=== PATIENT | male | born 1930 | race Caucasian/White ===

== ENCOUNTER → 2016-11-02 | Outpatient (CLI) | payer OTHER ==
[~2016-11-02] MED LIST: ALLO100T PO; ASPI81TA7 PO; CALC0.25 PO; CEFT500T PO; FINA5TAB2 PO; FURO20TA2 PO; GLYB5TAB5 PO; LOSA25TA8 PO; LOSA50TA20 PO; METO100T PO; NITR4TASL SL; OMEP40CA2 PO; PRAV80TA2 PO; TERA1CA PO; VIBR100C PO; WARF5VL PO
[2016-11-02 18:08] LABS: INR 2.23
== END ==
LOC: M WUC 13:53
PROVIDERS: ATTEND Family Medicine
DX: Z51.81 Encounter for therapeutic drug level monitoring (principal); Z79.01 Long term (current) use of anticoagulants

== ENCOUNTER 2016-11-14 10:35 | Inpatient (IN) | payer OTHER ==
[~2016-11-14] VITALS: Ht 172.7 cm; Wt 72.7 kg
[2016-11-14 11:35] LABS: BASO % 0.3 % (0.0-1.0); EOS # 0.1 K/mm3 (0.0-0.50); EOS % 1.6 % (0.0-3.0); LARGE UNSTAINED CELL # 0.2 K/mm3 (0.0-0.4); LARGE UNSTAINED CELL % 2.6 % (0.0-4.0); LYMPH % 11.1 % (24.0-44.0); MEAN CORPUSCULAR HEMOGLOBIN 30.4 pg (27.0-33.0); MEAN CORPUSCULAR HGB CONC 32.9 g/dl (32.0-36.5); MEAN CORPUSCULAR VOLUME 92.3 fl (80.0-96.0); MONO # 0.6 K/mm3 (0.0-0.8); NEUTROPHILS # 6.7 K/mm3 (1.8-7.7); NEUTROPHILS % 77.2 % (36.0-66.0); PLATELET COUNT, AUTOMATED 197 k/mm3 (150-450); RED CELL DISTRIBUTION WIDTH 13.7 % (11.5-14.5); WHITE BLOOD COUNT 8.7 K/mm3 (4.0-10.0)
[2016-11-14 12:13] LABS: ALBUMIN 3.1 GM/DL (3.2-5.2); ALBUMIN/GLOBULIN RATIO 0.84 (1.00-1.93); BILIRUBIN,DIRECT 0.1 MG/DL (0.0-0.2); BILIRUBIN,TOTAL 0.7 MG/DL (0.2-1.0); CREATININE FOR GFR 1.9 MG/DL (0.70-1.30); TOTAL PROTEIN 6.8 GM/DL (6.4-8.2)
--- NOTE | 2016-11-14 16:57 | REP ---
Chest, semi upright AP and lateral views: Comparisons are the PA and lateral views performed earlier today and PA and lateral views of 05/01/2013. There is an incomplete respiratory effort with under aeration of the lung bases. Cardiac size is magnified by positioning. No focal infiltrates or effusions are identified. Sternotomy wires, pacemaker and cardiac valve replacement are all again noted. Impression: Incomplete inspiratory effort. Cardiac size is magnified by positioning. Signed by Jagjit Whatley MD 11/14/2016 04:50 P
[2016-11-14] MEDS ORDERED: METO100T PO (19:33)
[2016-11-14] MEDS ORDERED: FINA5TAB2 PO (19:33)
[2016-11-14] MEDS ORDERED: CALC1CAP31 PO (19:33)
[2016-11-14] MEDS ORDERED: AMLO5TAB2 PO (19:33)
[2016-11-14] MEDS ORDERED: ASPI81TA85 PO (19:33)
[2016-11-14] MEDS ORDERED: INSULANT SC (19:33)
[2016-11-14] MEDS ORDERED: NITR4TASL SL (19:33)
[2016-11-14] MEDS ORDERED: COUM1TAB17 PO (19:33)
[2016-11-14] MEDS ORDERED: VITA100066 PO (19:33)
[2016-11-14] MEDS ORDERED: SERO1TAB3 PO (19:33)
[2016-11-14] MEDS ORDERED: CVS20TAB PO (19:33)
[2016-11-14] MEDS ORDERED: DONETAB6 PO (19:33)
[2016-11-14] MEDS ORDERED: PRAV80TA PO (19:33)
[2016-11-14] MEDS ORDERED: ALLO100T PO (19:33)
[2016-11-14] MEDS ORDERED: COUM2.5T11 PO (19:33)
[2016-11-14] MEDS ORDERED: LASI20TA PO (19:33)
[2016-11-14] MEDS ORDERED: ONDANSETRON 4MG/2ML VIAL (J2405) IV PRN (20:30)
[2016-11-14] MEDS ORDERED: DEXTROSE 50% 50 ML SYRINGE IV PRN (20:45)
[2016-11-14] MEDS ORDERED: GLUCAGON FOR INJ 1 MG VIAL (J1610) SC PRN (20:45)
[2016-11-14] MEDS ORDERED: GLUCOSE 4 GM CHEW TABLET PO PRN (20:45)
[2016-11-14] MEDS ORDERED: ASPIRIN 81 MG CHEW TABLET NG SCH (21:00)
[2016-11-14] MEDS ORDERED: DONEPEZIL 5 MG TAB PO SCH (21:00)
[2016-11-14 22:22] LABS: INR 2.28
--- NOTE | 2016-11-14 22:53 | EDDOCDS ---
Physician Documentation [facility] Name: Wilberto Paris Age: 86 yrs Sex: Male : 1930 Arrival Date: 11/14/2016 Time: 10:35 Bed Admit Hold Private MD: Disposition: 11/14 18:14 I have independently interviewed and examined the patient, and I agree with the br1 investigation, diagnosis and treatment plan as documented by the Resident. Disposition: 11/14/16 18:05 Hospitalization ordered by Brando Monzon for Inpatient Admission. Preliminary diagnosis is Altered mental status, unspecified. - Bed requested for 5 Holt. - Status is Inpatient Admission. mcp - Condition is Stable. - Problem is new. - Symptoms are unchanged. Historical: - Allergies: SULFA (SULFONAMIDES); - Home Meds: 1. omeprazole 20 mg Oral cpDR 1 cap once daily (Last dose: 11/14/2016 08:00) 2. amlodipine 5 mg Oral tab 1 tab once daily (Last dose: 11/14/2016 08:00) 3. allopurinol 100 mg Oral tab 1 tab once daily (Last dose: 11/14/2016 08:00) 4. finasteride 5 mg oral tab 1 tab once daily nightly (Last dose: 11/13/2016) 5. calcitriol 0.25 mcg oral cap 2 caps once daily 5x per week (Last dose: 11/13/2016) 6. warfarin 5 mg Oral tab 1 tab once daily nightly (Last dose: 11/13/2016) 7. metoprolol tartrate 100 mg Oral tab 1 tab 2 times per day (Last dose: 11/14/2016 08:00) 8. pravastatin 80 mg oral tab 1 tab once daily nightly (Last dose: 11/13/2016) 9. donepezil 5 mg oral tab 2 tabs once daily nightly (Last dose: 11/13/2016) 10. Lasix 20 mg Oral tab 1 tab once daily nightly (Last dose: 11/13/2016) 11. Vitamin D Oral 1,000 unit daily nightly (Last dose: 11/13/2016) 12. aspirin 81 mg Oral tab 1 tab once daily nightly (Last dose: 11/13/2016) 13. Lantus 100 unit/mL Sub-Q soln 10 units nightly (Last dose: 11/13/2016) 14. Nitrostat 0.4 mg SL subl 1 tab as needed 15. 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 No barriers to communication noted, The patient speaks fluent [place], Speaks appropriately for age. - Family history: Not pertinent. - : The pt / caregiver states he / she is on anticoagulants: coumadin. Home medication list is obtained from family members. - Exposure Risk Screening:: None identified. Vital Signs: 10:42 BP 166 / 69; Pulse 76; Resp 18; Temp 97.3(O); Pulse Ox 95% on R/A; Weight 74.84 kg / nb2 164.99 lbs (R); Height 5 ft. 8 in. (172.72 cm) (R); Pain 0/10; 11:11 BP 147 / 65 (auto/); ml6 11:11 Pulse 68 MON; ml6 13:29 js13 17:56 BP 172 / 88; Pulse 69; Resp 18; Temp 97.3(O); Pulse Ox 90% on R/A; Pain 0/10; nb2 22:28 BP 147 / 65 RA Supine (auto/reg); Pulse 70 MON; Resp 22 S; Temp 99.1(TE); Pulse Ox 93% cln on R/A; 10:42 Body Mass Index 25.09 (74.84 kg, 172.72 cm) nb2 13:29 Patient refusing to keep BP cuff on js13 MDM: 10:59 Seals Engraver/Pulse Ox/q 15 min VS ordered. br1 10:59 IV Saline Lock ordered. br1 10:59 Rhythm Strip to chart ordered. br1 11:00 CBC with Diff Ordered. EDMS 11:00 Cardiac Injury Profile Ordered. EDMS 11:00 Liver Profile Ordered. EDMS 11:00 MED Profile Ordered. EDMS 11:00 Thyroid Stimulating Hormone Ordered. EDMS 11:00 Troponin Ordered. EDMS 11:01 ECG WITH READING ER PHYS+CARDIAG ordered. EDMS 11:57 Financial registration complete. lg 12:32 [facility] Payment Agreement was scanned into [employer] and attached to record. lg 14:00 CBC with Diff Reviewed. jo4 14:00 Liver Profile Reviewed. jo4 14:00 MED Profile Reviewed. jo4 14:00 Troponin Reviewed. jo4 14:00 Cardiac Injury Profile Reviewed. jo4 14:00 Thyroid Stimulating Hormone Reviewed. jo4 14:04 CT Head Without Contrast Ordered. EDMS 14:04 Chest, 2 View (pa\E\lat) Ordered. EDMS 18:06 Chest, 2 View (pa\E\lat) Reviewed. jo4 18:24 BED REQUEST+ADM ordered. EDMS 20:35 Admission / Observation Status ordered. EDMS 20:35 CONSISTENT CARBOHYDRATES ordered. EDMS 20:35 2 GRAM SODIUM DIET ordered. EDMS 20:36 COMPLETE COMPHRENSIVE METABOLI Ordered. EDMS 20:37 URINALYSIS Ordered. EDMS 20:38 CBC WITH DIFFERENTIAL Ordered. EDMS 20:38 TROPONIN Ordered. EDMS 20:38 URINE CULTURE Ordered. EDMS 20:38 BLOOD CULTURES Ordered. EDMS 20:47 PT & APTT Ordered. EDMS 20:47 PROTHROMBIN TIME PROFILE\E\INR Ordered. EDMS 20:48 PHYSICAL THERAPY EVAL & TREAT ordered. EDMS 21:03 TROPONIN Ordered. EDMS 22:26 Admission Orders was scanned into [employer] and attached to record. ml3 22:29 Fingerstick Blood Sugar Ordered. EDAL Point of Care Testing: Blood Glucose: 22:23 Blood Glucose: 313 mg/dL; [facility] Ranges: Signatures: Dispatcher [employer] EDAL Maren Deng RN RN [facility] Rashmi Yi, Bran Reg JenyBillie, Rn Paralegal Unit ml3 Renetta To RN RN jo3 Marshal Hanna MD MD br1 Renetta Valentin RN RN js13 Nilsa Roberts DO DO jo4 Jh Cedeno RN RN sa The chart was reviewed and I authenticate all verbal orders and agree with the evaluation and treatment provided.Corrections: (The following items were deleted from the chart) 20:37 20:36 CBC WITH DIFFERENTIAL ordered. EDAL EDMS Attachments: 12:32 [facility] Payment Agreement lg 22:26 Admission Orders ml3 MTDD
--- NOTE | 2016-11-14 22:53 | EDDOCDS ---
Nurse's Notes [facility] Name: Wilberto Paris Age: 86 yrs Sex: Male : 1930 Arrival Date: 11/14/2016 Time: 10:35 Bed Admit Hold Private MD: Diagnosis: Altered mental status, unspecified Presentation: 11/14 10:38 Presenting complaint: EMS states: Progressive worsening of dementia. Pt having jo3 difficulty ambulating now at home. Family made statements at home that safety is an issue for pt and he may need half-way placement. Adult Sepsis Screening: The patient does not have new or worsening altered mentation. Suicide/Homicide risk assessment- the patient denies having any suicidal and/or homicidal ideations and does not present with any other emotional, behavioral or mental health complaints. Status: Patient is not a service order clerk or dependent. Transition of care: patient was not received from another setting of care. 10:38 Acuity: TINY Level 3 jo3 10:38 Method Of Arrival: Ambulance jo3 22:50 Adult Sepsis Screening: Patient has new or worsening altered mentation (1 point). mcp Patient's respiratory rate is less than 22. Systolic blood pressure is greater than 100. Patient has a qSOFA score of 1- Negative Sepsis Screen. Historical: - Allergies: SULFA (SULFONAMIDES); - Home Meds: 1. omeprazole 20 mg Oral cpDR 1 cap once daily (Last dose: 11/14/2016 08:00) 2. amlodipine 5 mg Oral tab 1 tab once daily (Last dose: 11/14/2016 08:00) 3. allopurinol 100 mg Oral tab 1 tab once daily (Last dose: 11/14/2016 08:00) 4. finasteride 5 mg oral tab 1 tab once daily nightly (Last dose: 11/13/2016) 5. calcitriol 0.25 mcg oral cap 2 caps once daily 5x per week (Last dose: 11/13/2016) 6. warfarin 5 mg Oral tab 1 tab once daily nightly (Last dose: 11/13/2016) 7. metoprolol tartrate 100 mg Oral tab 1 tab 2 times per day (Last dose: 11/14/2016 08:00) 8. pravastatin 80 mg oral tab 1 tab once daily nightly (Last dose: 11/13/2016) 9. donepezil 5 mg oral tab 2 tabs once daily nightly (Last dose: 11/13/2016) 10. Lasix 20 mg Oral tab 1 tab once daily nightly (Last dose: 11/13/2016) 11. Vitamin D Oral 1,000 unit daily nightly (Last dose: 11/13/2016) 12. aspirin 81 mg Oral tab 1 tab once daily nightly (Last dose: 11/13/2016) 13. Lantus 100 unit/mL Sub-Q soln 10 units nightly (Last dose: 11/13/2016) 14. Nitrostat 0.4 mg SL subl 1 tab as needed 15. 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 No barriers to communication noted, The patient speaks fluent Maori, Speaks appropriately for age. - Family history: Not pertinent. - : The pt / caregiver states he / she is on anticoagulants: coumadin. Home medication list is obtained from family members. - Exposure Risk Screening:: None identified. Screenin:34 Screening information is obtained from the patient. Fall risk: At risk due to age, jo3 apparent cognitive impairment. Fall risk: The following interventions are performed due to a positive Fall Risk Screen: Fall Risk is added to Special Handling on the patient Summary Screen. A Fall Risk Bracelet was applied to the patient. Side Rails are placed in the up position. A Call Carl is given with instruction to call for help when getting out of bed. Assistance ADL's: Requires assistance with meal preparation, this assistance is provided by family members, medication administration, assistance is provided by family members. Abuse/DV Screen: The patient / caregiver reports he/she is: not in a situation that causes fear, pain or injury. Unable to Assess. Nutritional screening: No deficits noted. home support is inadequate. 12:09 Advance Directives: There is no active DNR order. js13 Assessment: 11:34 General: Appears in no apparent distress, comfortable, Behavior is appropriate for age, jo3 cooperative. Pain: Denies pain. Neurological: Level of Consciousness is awake, alert, Oriented to person. Cardiovascular: No deficits noted. Respiratory: Airway is patent Respiratory effort is even, unlabored, Breath sounds are clear bilaterally. Derm: Skin is pink, warm & dry. 12:53 General: Appears in no apparent distress, comfortable, Behavior is cooperative. Pain: js13 Denies pain. Neurological: Level of Consciousness is awake, alert, Oriented to person. Respiratory: Airway is patent Respiratory effort is even, unlabored, Respiratory pattern is regular. Derm: Skin is pink, warm & dry. 12:54 Cardiovascular: Rhythm is regular Chest pain is denied. js13 13:29 Adult Sepsis Screening: Patient has new or worsening altered mentation (1 point). js13 Patient's respiratory rate is less than 22. Systolic blood pressure is greater than 100. Patient has a qSOFA score of 1- Negative Sepsis Screen. General: Appears in no apparent distress, comfortable, Behavior is appropriate for age, cooperative. Pain: Denies pain. Neurological: Level of Consciousness is awake, alert. Cardiovascular: Rhythm is regular Chest pain is denied. Respiratory: Airway is patent Respiratory effort is even, unlabored, Respiratory pattern is regular. Derm: Skin is pink, warm & dry. 13:30 General: Dr Cagle aware of patient not keeping BP cuff and O2 sat on and is OK with it. . js13 14:21 General: Appears in no apparent distress, comfortable, Behavior is appropriate for age, pml cooperative. Pain: Denies pain. Neurological: Level of Consciousness is awake, alert. Cardiovascular: Rhythm is regular Chest pain is denied. Respiratory: Airway is patent Respiratory effort is even, unlabored, Respiratory pattern is regular, Breath sounds are clear. Derm: Skin is pink, warm & dry. 15:37 General: Appears in no apparent distress, comfortable, Behavior is appropriate for age, js13 cooperative. Pain: Denies pain. Neurological: Level of Consciousness is awake, alert, Oriented to person. Cardiovascular: Rhythm is regular Chest pain is denied. Respiratory: Airway is patent Respiratory effort is even, unlabored, Respiratory pattern is regular, Breath sounds are clear. Derm: Skin is pink, warm & dry. 15:37 Adult Sepsis Screening: Patient has new or worsening altered mentation (1 point). js13 Patient's respiratory rate is less than 22. Systolic blood pressure is greater than 100. Patient has a qSOFA score of 1- Negative Sepsis Screen. 16:25 Reassessment: Patient appears in no apparent distress at this time. CT scan completed jo3 at this time. Tolerated fair. respirations unlabored, deep and regular on RA. Skin is pink, warm and dry . 17:46 General: Appears in no apparent distress, comfortable, Behavior is cooperative. Pain: js13 Denies pain. Neurological: Level of Consciousness is awake, alert, Oriented to person. Cardiovascular: Rhythm is regular Chest pain is denied. Respiratory: Airway is patent Respiratory effort is even, unlabored, Respiratory pattern is regular, symmetrical, Breath sounds are clear. Derm: Skin is pink, warm & dry. 18:07 General: Appears in no apparent distress, comfortable, Behavior is cooperative. js13 Neurological: Level of Consciousness is awake, alert. Respiratory: Airway is patent Respiratory effort is even, unlabored, Respiratory pattern is regular, symmetrical. Derm: Skin is pink, warm & dry. 19:10 General: Appears in no apparent distress, comfortable, Behavior is cooperative. jo3 Neurological: Level of Consciousness is awake, alert, confused. Cardiovascular: No deficits noted. Respiratory: Airway is patent Respiratory effort is even, unlabored. Derm: Skin is pink, warm & dry. 20:15 Reassessment: Patient appears in no apparent distress at this time. Patient denies pain jo3 at this time. Dr Monzon in to see pt at this time. Family remains at bedside. Pt attends changed at this time and scant amount of blood noted in attends. determined to be coming from within foreskin on penis. dr Monzon notified . 21:15 Reassessment: Patient appears in no apparent distress at this time. Patient denies pain jo3 at this time. Settled in bed with family at bedside. Awaiting admission. Aware of plan of care . 22:24 General: Dr Monzon notified of Troponin 0.25 by Rose Méndez RN and orders received. [facility] Vital Signs: 10:42 BP 166 / 69; Pulse 76; Resp 18; Temp 97.3(O); Pulse Ox 95% on R/A; Weight 74.84 kg (R); nb2 Height 5 ft. 8 in. (172.72 cm) (R); Pain 0/10; 11:11 BP 147 / 65 (auto/); ml6 11:11 Pulse 68 MON; ml6 13:29 js13 17:56 BP 172 / 88; Pulse 69; Resp 18; Temp 97.3(O); Pulse Ox 90% on R/A; Pain 0/10; nb2 22:28 BP 147 / 65 RA Supine (auto/reg); Pulse 70 MON; Resp 22 S; Temp 99.1(TE); Pulse Ox 93% cln on R/A; 10:42 Body Mass Index 25.09 (74.84 kg, 172.72 cm) nb2 13:29 Patient refusing to keep BP cuff on js13 Vitals: 10:38 Log In Time N/A - ambulance arrival. jo3 10:42 Log In Time N/A - ambulance arrival. nb2 ED Course: 10:36 Patient visited by Mindy Martin PCA. ar3 10:36 Renetta Valentin RN is Primary Nurse. ar3 10:36 Patient moved to Waiting ar3 10:36 Patient moved to 13 ar3 10:42 Triage Initiated jo3 10:42 Placed in gown. Bed in low position. Call light in reach. Side rails up X2. Cardiac nb2 monitor on. Pulse ox on. NIBP on. 10:43 Patient visited by Samantha Yanes. nb2 10:44 Patient visited by Renetta To RN. jo3 11:01 Patient visited by Renetta To,ZE. jo3 11:12 [facility] jo4 11:12 Marshal Hanna MD is Attending Physician. jo4 11:22 Patient visited by Nilsa Roberts DO. jo4 11:22 Patient visited by Nilsa Roberts DO. jo4 11:34 The patient / caregiver is instructed regarding the plan of care and ED course. jo3 11:34 Inserted saline lock: 18 gauge in right antecubital area. Labs drawn. (by ED staff). jo3 Sent per order to lab. 11:39 Patient visited by Renetta To RN. jo3 11:50 Patient visited by Kaveh Lopez. dem1 11:50 EKG done. (by ED staff). Reviewed by Nilsa Roberts DO. dem1 12:32 [facility] Payment Agreement was scanned into [employer] and attached to record. lg 12:55 Patient visited by Renetta Valentin RN. js13 13:30 Patient visited by Renetta Valentin RN. js13 14:22 Patient visited by Lynn Flores,ZE. pml 14:33 Patient visited by Marshal Hanna MD. br1 15:38 Patient visited by Renetta Valentin RN. js13 16:43 Patient visited by Adalberto Tripp, ZE. ml6 17:44 Chest, 2 View (pa\E\lat) Returned. EDMS 17:48 Patient visited by Renetta Valentin RN. js13 17:56 Patient visited by Samantha Yanes. nb2 18:04 Brando Monzon MD is Hospitalizing Provider. jo4 18:07 Patient visited by Renetta Valentin RN. js13 19:56 Primary Nurse role handed off by Rneetta Valentin RN alex 20:12 Patient visited by Marychuy Platt PCA. alex 20:12 Cleaned of incontinence. Linen changed. alex 20:43 Patient moved to Admit Hold ml3 20:46 Patient visited by Renetta To RN. jo3 21:16 Patient visited by Renetta To RN. jo3 22:24 Patient visited by Maren Deng RN. mcp 22:26 Admission Orders was scanned into [employer] and attached to record. ml3 22:29 Patient visited by Marylin Christiansen PCA. cln 22:49 No procedures done that require assistance. [facility] Point of Care Testing: Blood Glucose: 22:23 Blood Glucose: 313 mg/dL; [facility] Ranges: Order Results: Lab Order: CBC with Diff; SPEC'M 11/14/16 11:29 Test: WHITE BLOOD COUNT; Value: 8.7; Range: 4.0-10.0; Units: K/mm3; Status: F Test: RED BLOOD COUNT; Value: 3.99; Range: 4.30-6.10; Abnormal: Below low normal; Units: M/mm3; Status: F Test: HEMOGLOBIN; Value: 12.1; Range: 14.0-18.0; Abnormal: Below low normal; Units: g/dl; Status: F Test: HEMATOCRIT; Value: 36.8; Range: 42.0-52.0; Abnormal: Below low normal; Units: %; Status: F Test: MEAN CORPUSCULAR VOLUME; Value: 92.3; Range: 80.0-96.0; Units: fl; Status: F Test: MEAN CORPUSCULAR HEMOGLOBIN; Value: 30.4; Range: 27.0-33.0; Units: pg; Status: F Test: MEAN CORPUSCULAR HGB CONC; Value: 32.9; Range: 32.0-36.5; Units: g/dl; Status: F Test: RED CELL DISTRIBUTION WIDTH; Value: 13.7; Range: 11.5-14.5; Units: %; Status: F Test: PLATELET COUNT, AUTOMATED; Value: 197; Range: 150-450; Units: k/mm3; Status: F Test: NEUTROPHILS %; Value: 77.2; Range: 36.0-66.0; Abnormal: Above high normal; Units: %; Status: F Test: LYMPH %; Value: 11.1; Range: 24.0-44.0; Abnormal: Below low normal; Units: %; Status: F Test: MONO %; Value: 7.0; Range: 0.0-5.0; Abnormal: Above high normal; Units: %; Status: F Test: EOS %; Value: 1.6; Range: 0.0-3.0; Units: %; Status: F Test: BASO %; Value: 0.3; Range: 0.0-1.0; Units: %; Status: F Test: LARGE UNSTAINED CELL %; Value: 2.6; Range: 0.0-4.0; Units: %; Status: F Test: NEUTROPHILS #; Value: 6.7; Range: 1.8-7.7; Units: K/mm3; Status: F Test: LYMPH #; Value: 1.0; Range: 1.5-4.5; Abnormal: Below low normal; Units: K/mm3; Status: F Test: MONO #; Value: 0.6; Range: 0.0-0.8; Units: K/mm3; Status: F Test: EOS #; Value: 0.1; Range: 0.0-0.50; Units: K/mm3; Status: F Test: BASO #; Value: 0.0; Range: 0.0-0.2; Units: K/mm3; Status: F Test: LARGE UNSTAINED CELL #; Value: 0.2; Range: 0.0-0.4; Units: K/mm3; Status: F Lab Order: Cardiac Injury Profile; [facility] 11/14/16 11:29 Test: CPK CREATINE PHOSPHOKINASE; Value: 101; Range: 39-308; Units: U/L; Status: F Test: CK-MB VALUE MASS; Value: 1.0; Range: 0.0-3.6; Units: NG/ML; Status: F Test: MB/CK RELATIVE INDEX; Value: 0.99; Range: < OR =4; Status: F Test Note: ; DIAGNOSIS CRITERIA MMB ng/ml Relative Index (RI) NON-AMI < or = 5 N/A [place] > 5 < or = 4 AMI > 5 > 4 Lab Order: Liver Profile; [facility] 11/14/16 11:29 Test: AST/SGOT; Value: 25; Range: 15-37; Units: U/L; Status: F Test: ALT/SGPT; Value: 18; Range: 12-78; Units: U/L; Status: F Test: ALKALINE PHOSPHATASE; Value: 72; Range: 45-117; Units: U/L; Status: F Test: BILIRUBIN,TOTAL; Value: 0.7; Range: 0.2-1.0; Units: MG/DL; Status: F Test: BILIRUBIN,DIRECT; Value: 0.1; Range: 0.0-0.2; Units: MG/DL; Status: F Test: TOTAL PROTEIN; Value: 6.8; Range: 6.4-8.2; Units: GM/DL; Status: F Test: ALBUMIN; Value: 3.1; Range: 3.2-5.2; Abnormal: Below low normal; Units: GM/DL; Status: F Test: ALBUMIN/GLOBULIN RATIO; Value: 0.84; Range: 1.00-1.93; Abnormal: Below low normal; Status: F Lab Order: MED Profile; [facility] 11/14/16 11:29 Test: GLUCOSE, FASTING; Value: 275; Range: 83-110; Abnormal: Above high normal; Units: MG/DL; Status: F Test: BLOOD UREA NITROGEN; Value: 36; Range: 7-18; Abnormal: Above high normal; Units: MG/DL; Status: F Test: CREATININE FOR GFR; Value: 1.90; Range: 0.70-1.30; Abnormal: Above high normal; Units: MG/DL; Status: F Test: GLOMERULAR FILTRATION RATE; Value: 36.0; Range: >35; Status: F Test: SODIUM LEVEL; Value: 139; Range: 136-145; Units: MEQ/L; Status: F Test: POTASSIUM SERUM; Value: 5.0; Range: 3.5-5.1; Units: MEQ/L; Status: F Test: CHLORIDE LEVEL; Value: 102; Range: 98-107; Units: MEQ/L; Status: F Test: CARBON DIOXIDE LEVEL; Value: 31; Range: 21-32; Units: MEQ/L; Status: F Test: ANION GAP; Value: 6; Range: 8-16; Abnormal: Below low normal; Units: MEQ/L; Status: F Test: CALCIUM LEVEL; Value: 9.0; Range: 8.8-10.2; Units: MG/DL; Status: F Test Note: ; Units are mL/min/1.73 m2 Chronic Kidney Disease Staging per NKF: Stage I & II GFR >=60 Normal to Mildly Decreased Stage III GFR 30-59 Moderately Decreased Stage IV GFR 15-29 Severely Decreased Stage V GFR <15 Very Little GFR Left ESRD GFR <15 on ELECTRONICS ASSEMBLER Lab Order: Thyroid Stimulating Hormone; SPEC'M 11/14/16 11:29 Test: THYROID STIMULATING HORMONE; Value: 1.230; Range: 0.358-3.740; Units: uIU/ML; Status: F Lab Order: Troponin; SPEC'M 11/14/16 11:29 Test: TROPONIN I; Value: 0.35; Range: < 0.10; Abnormal: Above high normal; Units: NG/ML; Status: F Test Note: ; Troponin I Reference Interval for [employer] LOCI: 99th Percentile= 0.00-0.045 ng/ml Risk Stratification: <= 0.10 ng/ml Decreased Risk for Adverse Clinical Events. 0.10-1.50 ng/ml Increased Risk for Adverse Clinical Events. Evaluation of additional criterion and/or repeat testing in 2-6 hours is suggested to rule out myocardial damage. >= 1.50 ng/ml Indicative of Myocardial Injury. Lab Order: PT & APTT; SPEC'M 11/14/16 21:58 Test: PROTHROMBIN TIME; Value: 25.2; Range: 12.3-14.5; Abnormal: Above high normal; Units: SECONDS; Status: F Test: INR; Value: 2.28; Status: F Test: PARTIAL THROMBOPLASTIN TIME; Value: 62.9; Range: 26.6-37.1; Abnormal: Above high normal; Units: SECONDS; Status: F Test Note: ; THERAPUTIC HUMAN INR VALUES INDICATIONS NORMAL RANGES PROPHYLAXIS/TREATMENT OF: VENOUS THROMBOSIS 2.0-3.0 PULMONARY EMBOLISM 2.0-3.0 PREVENTION OF SYSTEMIC EMBOLISM FROM: TISSUE HEART VALVES 2.0-3.0 ACUTE MYOCARDIAL INFARCTION 2.0-3.0 VALVULAR HEART DISEASE 2.0-3.0 ATRIAL FIBRILLATION 2.0-3.0 MECHANICAL VALVES(HIGH RISK) 2.5-3.5 RECURRENT MYOCARDIAL INFARCTION 2.5-3.5 Lab Order: TROPONIN; SPEC'M 11/14/16 21:05 Test: TROPONIN I; Value: 0.25; Range: < 0.10; Abnormal: High; Units: NG/ML; Status: F Test Note: ; Troponin I Reference Interval for [employer] LOCI: 99th Percentile= 0.00-0.045 ng/ml Risk Stratification: <= 0.10 ng/ml Decreased Risk for Adverse Clinical Events. 0.10-1.50 ng/ml Increased Risk for Adverse Clinical Events. Evaluation of additional criterion and/or repeat testing in 2-6 hours is suggested to rule out myocardial damage. >= 1.50 ng/ml Indicative of Myocardial Injury. Lab Order: Fingerstick Blood Sugar; SPEC'M 11/14/16 22:20 Test: BEDSIDE GLUCOSE; Value: 313; Range: 83-110; Abnormal: Above high normal; Units: MG/DL; Status: F Radiology Order: Chest, 2 View (pa\E\lat) Test: Chest, 2 View (pa\E\lat) REASON FOR EXAMINATION: Elevated troponin; Chest, semi upright AP and lateral views:; ; Comparisons are the PA and lateral views performed earlier today and PA and; lateral views of 05/01/2013.; ; There is an incomplete respiratory effort with under aeration of the lung bases.; ; Cardiac size is magnified by positioning.; ; No focal infiltrates or effusions are identified.; ; Sternotomy wires, pacemaker and cardiac valve replacement are all again noted.; ; Impression:; ; Incomplete inspiratory effort. Cardiac size is magnified by positioning.; ; ; Signed by; Jagjit Whatley MD 11/14/2016 04:50 P; Outcome: 18:05 Decision to Hospitalize by Provider. jo4 22:48 Discharge Assessment: patient administered narcotics - no. The following High Risk [facility] Discharge criteria are identified: None. Admitted to Med/Surg accompanied by tech, via stretcher, with chart. Condition: stable. Property given to family member, . 22:49 CT Study completed. [facility] 22:52 Patient left the ED. [facility] Signatures: Dispatcher [employer] EDMS Maren Deng, RN RN [facility] Rashmi Yi, Reg Reg lg Jeny, Billie, Property Insurance Inspector Unit ml3 Renetta ToRN RN jo3 Marshal Hanna MD MD brAdalberto Barriga RN RN ml6 Mindy Martin, EMOTIONAL SUPPORT TEACHER EMOTIONAL SUPPORT TEACHER ar3 Marychuy Platt, EMOTIONAL SUPPORT TEACHER EMOTIONAL SUPPORT TEACHER alex Lynn Flores,RN RN Kaveh Lorenzo Jennifer,ZE RN js13 Nilsa Roberts, DO jo4 Marylin Christiansen, EMOTIONAL SUPPORT TEACHER EMOTIONAL SUPPORT TEACHER cln Samantha Yanes nb2 Corrections: (The following items were deleted from the chart) 16:44 16:20 Reassessment: Patient appears in no apparent distress at this time. CT scan jo3 completed at this time. Tolerated fair. respirations unlabored, deep and regular on RA. Skin is pink, warm and dry . ml6 MTDD
[2016-11-14 23:43] VITALS: BP 154/82
[2016-11-14] MEDS: PRAVASTATIN 20 MG TAB PO SCH (23:54)
[2016-11-14] MEDS: FINASTERIDE 5 MG TAB PO SCH (23:54)
[2016-11-14] MEDS: METOPROLOL TARTRATE 100 MG TAB PO SCH (23:54)
[2016-11-14] MEDS: ACETAMINOPHEN TAB 650MG DOSE (2X325MG) PO PRN (23:55)
[2016-11-15] MEDS: HumaLOG INSULIN (NovoLOG) PER UNIT SC SCH ×5 (00:01→20:21)
[2016-11-15 06:00] VITALS: BP 146/79
[2016-11-15 06:50] LABS: BASO % 0.4 % (0.0-1.0); EOS # 0.3 K/mm3 (0.0-0.50); EOS % 4.9 % (0.0-3.0); LARGE UNSTAINED CELL # 0.3 K/mm3 (0.0-0.4); LARGE UNSTAINED CELL % 3.9 % (0.0-4.0); LYMPH # 1.1 K/mm3 (1.5-4.5); LYMPH % 15.2 % (24.0-44.0); MEAN CORPUSCULAR HEMOGLOBIN 30.9 pg (27.0-33.0); MEAN CORPUSCULAR HGB CONC 33.7 g/dl (32.0-36.5); MEAN CORPUSCULAR VOLUME 91.8 fl (80.0-96.0); MONO # 0.5 K/mm3 (0.0-0.8); MONO % 6.7 % (0.0-5.0); NEUTROPHILS # 4.7 K/mm3 (1.8-7.7); NEUTROPHILS % 68.8 % (36.0-66.0); PLATELET COUNT, AUTOMATED 195 k/mm3 (150-450); RED CELL DISTRIBUTION WIDTH 13.8 % (11.5-14.5); WHITE BLOOD COUNT 6.9 K/mm3 (4.0-10.0)
[2016-11-15 06:59] LABS: ALBUMIN 2.8 GM/DL (3.2-5.2); ALBUMIN/GLOBULIN RATIO 0.72 (1.00-1.93); BILIRUBIN,TOTAL 0.8 MG/DL (0.2-1.0); CALCIUM LEVEL 8.7 MG/DL (8.8-10.2); CREATININE FOR GFR 1.68 MG/DL (0.70-1.30); GLOMERULAR FILTRATION RATE 41.5 (>35); INR 2.28; TOTAL PROTEIN 6.7 GM/DL (6.4-8.2)
[2016-11-15] MEDS: METOPROLOL TARTRATE 100 MG TAB PO SCH ×2 (08:36→20:21)
[2016-11-15] MEDS: FUROSEMIDE 20 MG TAB PO SCH (08:36)
[2016-11-15] MEDS: ACETAMINOPHEN TAB 650MG DOSE (2X325MG) PO PRN ×2 (08:36→20:22)
[2016-11-15] MEDS: amLODIPine 5 MG TAB PO SCH (08:36)
[2016-11-15] MEDS: ALLOPURINOL 100 MG TAB PO SCH (08:36)
--- NOTE | 2016-11-15 08:58 | REP ---
Noncontrast brain CT. History: Worsening dementia. Comparison head CT study September 11, 2011. Findings: Digital lateral wood shingle roofer radiograph is unremarkable. Bone window settings demonstrate an intact bony calvarium. Visualized paranasal sinuses are clear. There is heavy vascular calcification in the carotid siphons bilaterally. There is moderate diffuse cerebral atrophy. Small vessel atherosclerotic low density changes are seen in the periventricular white matter bilaterally, unchanged from the prior CT study of August 2011. There is no evidence of infarct, intracranial hemorrhage, extra-axial fluid collection, mass or midline shift. Impression: Prominent vascular calcification, diffuse atrophy, small vessel changes. No acute intracranial abnormality. Signed by Beau Suh MD 11/15/2016 09:06 A
[2016-11-15] MEDS ORDERED: OMEPRAZOLE 20 MG CAP PO SCH (09:00)
[2016-11-15] MEDS ORDERED: ENOXAPARIN 40 MG/0.4 ML SYRINGE (J1650) SC SCH (09:00)
--- NOTE | 2016-11-15 13:02 | ECGEPIP ---
Stationary ECG Study [facility] - ED Test Date: 2016-11-14 Pat Name: MADHU CLAROS Department: Room: - Gender: M Manager Ent: armida : [id number] Requested By: NAVIN Brown Order Number: [id number] Reading MD: Lo Mcdaniels Measurements Intervals [place] Rate: 69 P: [place]: 0 QRS: 265 QRSD: 177 T: -24 QT: 495 QTc: 534 Interpretive Statements ELECTRONIC VENTRICULAR PACEMAKER ABNORMAL RHYTHM ECG SIMILAR 09/14/14 Electronically Signed On 11-15-2016 13:02:04 EST by Lo Mcdaniels
--- NOTE | 2016-11-15 13:10 | HPE ---
DISCLAIMER: Dr. Monzon: Please fill in and/or correct or redictate the following note. There are many blanks due to poor audio, and the note was cut off at the end before the Laboratories and Assessment and Plan. Thank you! Porsche Thurman, Clinical Asst DATE OF ADMISSION: 11/14/2016 CHIEF COMPLAINT: Increased generalized weakness, confusion, progressively over the last few weeks. HISTORY OF PRESENT ILLNESS: This is an 86-year-old white male patient of Dr. Andrey Caldwell, who presents to [facility] ([facility]) with a 2-week history of progressive symptoms of generalized weakness. The patient has been generally more confused; and over the last 2 days, he has had episodes of urinary incontinence, which he has not had before. His appetite has been decreased. No vomiting, diarrhea. No fevers, chills. No obvious chest pain, palpitations, orthopnea, paroxysmal nocturnal dyspnea (PND), nor increased edema. PAST MEDICAL HISTORY: illnesses. Coronary artery disease (CAD), status post coronary artery bypass graft (CABG) times four. (dictation cut off) Diabetes mellitus type 2, uncontrolled. (dictation cut off) Frequent falls. Chronic kidney disease stage III. Diastolic dysfunction. Benign prostatic hypertrophy (BPH) (bad audio). AV block. 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 Gout. Hypertension. Hypertensive heart disease. MEDICATIONS: Per [employer] (ECW) confirmed with , Regla, at bedside. - aspirin 81 by mouth every day (bad audio) (bad audio) - Calcitriol 0.5 five days a week (bad audio) - Coumadin (bad audio) (bad audio) REVIEW OF SYSTEMS: CONSTITUTIONAL: Denies weight loss (bad audio) VISION: No diplopia or scotoma. EARS, NOSE, AND THROAT (ENT): No epistaxis or hoarseness. CARDIOVASCULAR: No chest pain or palpitations. PULMONARY: No shortness of breath. No wheeze. GASTROINTESTINAL (GI): No odynophagia or hematochezia. GENITOURINARY (): He has had no dysuria or hematuria. ENDOCRINE: No polyuria or polydipsia. RHEUMATOLOGIC: No joint or tendon pain. NEUROLOGIC: No paresthesias or weakness. PHYSICAL EXAMINATION: 98 , respiratory rate 18, , blood pressure (bad audio). GENERAL: The patient is alert and oriented times three, in no acute distress. HEAD: Is normocephalic, atraumatic. EARS: Tympanic membranes (TMs) normal bilateral. EYES: With clear conjunctivae. NOSE: Without discharge. THROAT: Clear oropharynx. HEART: Is regular rate and rhythm with a systolic murmur 2/6 at upper sternal border. No jugular venous distention (JVD). RESPIRATORY: Decreased breath sounds bilateral bases. No rales, rhonchi, or wheezes. ABDOMEN: There is mild suprapubic tenderness. No pulsatile masses. No distention. Positive bowel sounds. No hepatosplenomegaly. No palpable masses. DICTATION ENDS HERE
--- NOTE | 2016-11-15 13:39 | IPNPDOC ---
Assessment/Plan Date Seen The patient was seen on 11/15/16. Problems Problems: (1) Mental status change Status: Acute Problem Specific Plan: Monitor Clinically Problem Text: acute delirium on chronic moderate LB dementia 11/14/16 BCX/UCX - 11/14/16 CT head NAD progressive dementia. PFS consult to eval home situation, DC needs. (2) Elevated troponin Status: Acute Problem Text: mildly elevated T-I-stable, favor moreso 2 CKD check TTE no angina/dyspnea/PND (3) Acute on chronic renal insufficiency Status: Acute Problem Specific Plan: Monitor Clinically Problem Text: Cr. 1.6 improving. (4) Diabetes Status: Chronic Response to Treatment: Improving Problem Text: well controlled on ADA diet, SSNI 08/2016 A1C 11 (5) CAD (coronary artery disease) Status: Chronic Problem Specific Plan: Monitor Clinically Plan / VTE VTE Prophylaxis Ordered?: Yes (lovenox) VTE Exclusion Mechanical Proph: Chinedu Lower Ex Surgery Subjective Review of Systems CC/HPI The patient is a 86-year-old male admitted with a reason for visit of Elevated Tropinin/Mental Status Change. Events since last encounter noted ТАТЬЯНА. Troponin elevated at 0.31. Asymptomatic. Progressive weakness. General: Reports: ROS Unobtainable Objective Physical Examination General Exam: Positive: Alert, Cooperative, No Acute Distress ENT Exam: Positive: Atraumatic, Mucous membr. moist/pink, Pharynx Normal Neck Exam: Positive: Supple, Negative: JVD, thyromegaly Chest Exam: Positive: Clear to auscultation, Normal air movement Heart Exam: Positive: Normal S1, Normal S2, Rate Normal, Regular Rhythm, Negative: Murmurs, Rubs Abdomen Exam: Positive: Normal bowel sounds, Soft, Negative: Hepatospenomegaly, Tenderness Extremity Exam: Positive: Normal pulses, Negative: Clubbing, Cyanosis, Edema Skin Exam: Positive: Nl turgor and temperature, Negative: Breakdown, Rash Psych Exam: Positive: Other (alert to self, repeats statements. ) Vital Signs/I&O Vital Signs Date Time Temp Pulse Resp B/P Pulse Ox O2 Delivery O2 Flow Rate FiO2 11/15/16 08:36 90 146/79 11/15/16 06:00 98.2 20 95 Room Air I&O- Last 24 Hours up to 6 AM 11/15/16 06:00 Intake Total 120 ml Output Total 400 ml Balance -280 ml Laboratory Data Labs 24H Laboratory Tests 2 11/14/16 21:05: Troponin I 0.25#H 11/14/16 21:58: Activated Partial Thromboplast Time 62.9H, Prothromb Time International Ratio 2.28, Prothrombin Time 25.2H 11/14/16 22:20: Bedside Glucose (Misc Panel) 313H 11/14/16 23:55: Bedside Glucose (Misc Panel) 261H 11/15/16 06:10: Blood Urea Nitrogen 30H, Creatinine 1.68H, Sodium Level 141, Potassium Level 4.0 , Chloride Level 104, Carbon Dioxide Level 30, Calcium Level 8.7L, Aspartate Amino Transf (AST/SGOT) 15, Alanine Aminotransferase (ALT/SGPT) 14, Alkaline Phosphatase 67, Total Bilirubin 0.8, Total Protein 6.7, Albumin 2.8L, Albumin/ Globulin Ratio 0.72L, Anion Gap 7L, White Blood Count 6.9, Red Blood Count 3.80L , Hemoglobin 11.7L, Hematocrit 34.9L, Mean Corpuscular Volume 91.8, Mean Corpuscular Hemoglobin 30.9, Mean Corpuscular Hemoglobin Concent 33.7, Red Cell Distribution Width 13.8, Platelet Count 195, Neutrophils (%) (Auto) 68.8H, Lymphocytes (%) (Auto) 15.2L, Monocytes (%) (Auto) 6.7H, Eosinophils (%) (Auto) 4.9H, Basophils (%) (Auto) 0.4, Neutrophils # (Auto) 4.7, Lymphocytes # (Auto) 1.1L, Monocytes # (Auto) 0.5, Eosinophils # (Auto) 0.3, Basophils # (Auto) 0.0, Glomerular Filtration Rate 41.5, Large Unclassified Cells # 0.3, Large Unclassified Cells % 3.9, Prothromb Time International Ratio 2.28, Prothrombin Time 25.2H, Troponin I 0.31#H 11/15/16 10:30: Urine Amorphous Sediment , Urine Appearance CLEAR, Urine Color YELLOW, Urine pH 5.0, Urine Specific [place] 1.021, Urine Protein 2+H, Urine Glucose (UA) 2+H, Urine Ketones NEGATIVE, Urine Urobilinogen 0.2, Urine Bilirubin NEGATIVE, Urine Leukocyte Esterase NEGATIVE, Urine Bacteria (Auto) NEGATIVE, Urine Blood 3+H, Urine Calcium Carbonate Cryst(Auto) , Urine Calcium Oxalate Cryst (Auto) , Urine Calcium Phosphate [place] (Auto) , Urine Cellular Casts , Urine Cystine Crystals , Urine Granular Casts (Auto) , Urine Hyaline Casts (Auto) 0, Urine Leucine Crystals , Urine Mucus (Auto) , Urine Nitrite NEGATIVE, Urine Oval Fat Bodies (Auto) , Urine RBC (Auto) 36H, Urine Renal Epithelial Cells , Urine Sperm (Auto) , Urine Squamous Epithelial Cells 0, Urine Transitional Epithelial Cells , Urine Trichomonas (Auto) , Urine Triple Phosphate Cryst (Auto) , Urine Tyrosine Crystals , Urine Uric Acid Crystals (Auto) , Urine WBC (Auto) 19H, Urine Waxy Casts (Auto) , Urine Yeast-Like Cells (Auto) 11/15/16 11:40: Bedside Glucose (Misc Panel) 141H CBC/BMP Laboratory Tests 11/15/16 06:10 Calcium Level 8.7 L, Aspartate Amino Transf (AST/SGOT) 15, Alanine Aminotransferase (ALT/SGPT) 14, Alkaline Phosphatase 67, Total Bilirubin 0.8, Total Protein 6.7, Albumin 2.8 L, Red Blood Count 3.80 L, Mean Corpuscular Volume 91.8, Mean Corpuscular Hemoglobin 30.9, Mean Corpuscular Hemoglobin Concent 33.7, Red Cell Distribution Width 13.8, Neutrophils (%) (Auto) 68.8 H, Lymphocytes (%) (Auto) 15.2 L, Monocytes (%) (Auto) 6.7 H, Eosinophils (%) (Auto ) 4.9 H, Basophils (%) (Auto) 0.4, Neutrophils # (Auto) 4.7, Lymphocytes # (Auto ) 1.1 L, Monocytes # (Auto) 0.5, Eosinophils # (Auto) 0.3, Basophils # (Auto) 0.0 FSBS Laboratory Tests Test 11/14/16 22:20 11/14/16 23:55 11/15/16 11:40 Range/Units Bedside Glucose (Misc Panel) 313 261 141 83-110 MG/DL Microbiology Microbiology 11/14/16 Blood Culture, Received Pending 11/15/16 Urine Culture, Received Pending Bertha Shaw Nov 15, 2016 13:39 Brando Monzon M.D. Nov 15, 2016 14:53
[2016-11-15 14:00] VITALS: BP 153/72
[2016-11-15] MEDS ORDERED: GI COCKTAIL 50ML BTL(HYOSCYAMINE/MAALOX/LIDOCAINE VISCOUS)(1:3:1) PO ONE (17:00)
--- NOTE | 2016-11-15 17:55 | REP ---
Supine abdomen single AP view: There is a scattered gas in nondistended small bowel loops. There is no small bowel distension or large bowel distension. However, there is evident. These are mildly thickened. This is nonspecific and could represent bowel wall edema or possibly ascites. There are vascular atheromatous calcifications in the pelvis. There is bilateral hip osteoarthritis. There is degenerative disc disease throughout the lumbar spine. Impression: Nonspecific bowel gas pattern. Signed by Jagjit Whatley MD 11/15/2016 05:46 P
[2016-11-15] MEDS: ASPIRIN 81 MG CHEW TABLET PO SCH (20:20)
[2016-11-15] MEDS: FINASTERIDE 5 MG TAB PO SCH (20:20)
[2016-11-15] MEDS: OMEPRAZOLE 20 MG CAP PO SCH (20:20)
[2016-11-15] MEDS: DONEPEZIL 5 MG TAB PO SCH (20:20)
[2016-11-15] MEDS: PRAVASTATIN 20 MG TAB PO SCH (20:20)
[2016-11-15 22:00] VITALS: BP 148/67
[2016-11-16 06:00] VITALS: BP 150/65
--- NOTE | 2016-11-16 06:05 | HPE ---
DATE OF ADMISSION: 11/14/2016 CHIEF COMPLAINT: Increased generalized weakness, confusion progressively over the last 2 weeks. HISTORY OF PRESENT ILLNESS: This is an 86-year-old white male patient of Dr. Andrey Caldwell who presents to [facility] ([facility]) emergency room (ER) with a 2 week history of progressive increased generalized weakness. Per the patient's , he has been more confused and over the last 2 days he has episodes of urinary incontinence, which he has never had before. His overall appetite has been decreased without vomiting or diarrhea. He has had no fevers, chills. He has had no obvious chest pain, palpitations, orthopnea. No paroxysmal nocturnal dyspnea (PND). No increased edema. PAST MEDICAL HISTORY: Hospitalizations: None recently. Illnesses: CAD, status post CABG, diabetes mellitus type 2, insulin dependent, uncontrolled, chronic kidney disease stage III, hypertension, hypertensive heart disease, congestive heart failure (CHF) secondary to diastolic dysfunction, BPH, history of atrioventricular (AV) block status post pacemaker, history of mitral valve repair, dementia, Lewy body type, moderate, gout. MEDICATIONS: Per ECW, confirmed with Regla at bedside: - aspirin 81 by mouth daily - calcitriol 0.5, 5 days a week - allopurinol 100 by mouth daily - amlodipine 5 by mouth daily - vitamin D 1000 daily - donepezil 10 nightly - finasteride 5 by mouth daily - furosemide 20 by mouth daily - metoprolol tartrate 100 twice a day - nitro 0.4 sublingual as needed - omeprazole 20 daily - pravastatin 80 nightly - Seroquel 25 nightly - warfarin 5 Wednesday through Wednesday, 2.5 on Wednesday and Wednesday REVIEW OF SYSTEMS: Constitutional: No weight loss, night sweats, or vision. Eyes: No diplopia or scatoma. ENT: No epistaxis. Cardiovascular: No chest pain or palpitations. Pulmonary: No shortness of breath or wheeze. Gastrointestinal: No abdominal pain, melena or hematochezia. Genitourinary: No dysuria or hematuria. Rheumatologic: No generalized tenderness or pain. Neurologic: No paresthesia or weakness. PHYSICAL EXAMINATION: 98.5, 88, 18, 154/94, 96% on room air. General: The patient is alert and oriented times zero, in no acute distress. Head is normocephalic, atraumatic. Ears: Tympanic membranes (TMs) normal bilateral. Eyes: Clear conjunctiva. Nose without discharge. Throat clear. Pharynx benign. Neck: Without adenopathy. Heart is regular rate and rhythm with systolic ejection murmur 2/6, loudest at left second intercostal space. No jugular venous distention (JVD). Respiratory: Decreased breath sounds bilateral. No rales, rhonchi or wheeze. Abdomen: There is mild suprapubic tenderness. No masses. Positive bowel sounds. No hepatosplenomegaly. Extremities: No clubbing, cyanosis or edema. Neurologic is grossly nonfocal. INVESTIGATIONS: Showed WBC 8.7, hemoglobin and hematocrit 12.1 and 36.8, platelets of 197. INR of 2.3, PTT of 63. Sodium 139, potassium 5.0, bicarbonate 31, BUN 36, creatinine 1.9. AST, ALT of 25 and 18. Troponin I 0.35. 101 with an index of 1.0. TSH of 1.2. Chest x-ray showed no acute disease. Head CT showed generalized atrophy. No acute infarct or mass. EKG from 11/14/2006 at 11:50 showed ventricular paced rhythm at 69 beats per minute. ASSESSMENT: This is an 86-year-old white male with increased generalized weakness over the last 2 weeks with borderline troponin and suprapubic tenderness. PLAN: 1. Cardiovascular: Admit the patient to [facility] ([facility]) for serial enzymes and EKGs. Continue his home warfarin and baby aspirin, and antihypertensive therapy including beta-sonido. There are no signs of cardiac decompensation and he appears to have normal ventricular pace or function. 2. Neurologic: We will continue his home dose of donepezil at night in favor of acute delirium secondary to toxic metabolic encephalopathy, possibly secondary to urinary tract infection (UTI) or myocardial infarction (VA). We will also check blood and urine culture. 3. Renal: Patient is at baseline creatinine of roughly 1.9 with stable electrolytes. 4. Urologic: We will check a PVR, urine culture to rule out UTI. DISPOSITION: We will continue the patient as a FULL CODE STATUS per 's request. We will consult physical therapy (PT), occupational therapy (OT) to evaluate and treat any probable need short-term rehabilitation.
[2016-11-16 06:24] LABS: BASO % 0.6 % (0.0-1.0); EOS # 0.3 K/mm3 (0.0-0.50); LARGE UNSTAINED CELL # 0.3 K/mm3 (0.0-0.4); LARGE UNSTAINED CELL % 3.5 % (0.0-4.0); LYMPH # 1.1 K/mm3 (1.5-4.5); LYMPH % 15.5 % (24.0-44.0); MEAN CORPUSCULAR HEMOGLOBIN 30.6 pg (27.0-33.0); MEAN CORPUSCULAR HGB CONC 33.2 g/dl (32.0-36.5); MEAN CORPUSCULAR VOLUME 92.1 fl (80.0-96.0); MONO # 0.4 K/mm3 (0.0-0.8); MONO % 5.7 % (0.0-5.0); NEUTROPHILS % 70.7 % (36.0-66.0); PLATELET COUNT, AUTOMATED 222 k/mm3 (150-450); WHITE BLOOD COUNT 7.1 K/mm3 (4.0-10.0)
[2016-11-16 06:29] LABS: INR 1.9
[2016-11-16 06:58] LABS: ALBUMIN 2.8 GM/DL (3.2-5.2); ALBUMIN/GLOBULIN RATIO 0.7 (1.00-1.93); BILIRUBIN,TOTAL 0.7 MG/DL (0.2-1.0); CALCIUM LEVEL 8.7 MG/DL (8.8-10.2); CREATININE FOR GFR 1.72 MG/DL (0.70-1.30); GLOMERULAR FILTRATION RATE 40.4 (>35); POTASSIUM SERUM 4.2 MEQ/L (3.5-5.1); TOTAL PROTEIN 6.8 GM/DL (6.4-8.2)
--- NOTE | 2016-11-16 08:34 | IPNPDOC ---
Assessment/Plan Date Seen The patient was seen on 11/16/16. Family Medicine Attending Note: Patient seen and examined; I d/w JAJA Kennedy and I agree with her note below. Patient's and daughter are at bedside - they are still uncertain regarding long-term NH placement but patient's states she cannot move him at home. PT was unable to evaluate the patient because he could not understand their directions. Plan is to SNF tomorrow and arrange NH placement. (KES) Problems Problems: (1) Mental status change Status: Acute Problem Specific Plan: Monitor Clinically Problem Text: acute delirium on chronic moderate LB dementia 11/14/16 BCX/UCX - 11/14/16 CT head NAD progressive dementia. PFS consult to eval home situation, DC needs 11/16 - will plan to SNF pt 11/17. (2) Elevated troponin Status: Acute Problem Text: mildly elevated T-I-stable, favor moreso 2 CKD check TTE no angina/dyspnea/PND (3) Acute on chronic renal insufficiency Status: Acute Problem Specific Plan: Monitor Clinically Problem Text: Cr. 1.72 - stable (4) Diabetes Status: Chronic Response to Treatment: Improving Problem Text: well controlled on ADA diet, SSNI 08/2016 A1C 11 (5) CAD (coronary artery disease) Status: Chronic Problem Specific Plan: Monitor Clinically Plan / VTE VTE Prophylaxis Ordered?: Yes (lovenox) VTE Exclusion Mechanical Proph: Chinedu Lower Ex Surgery Subjective Review of Systems CC/HPI Pt without new concerns. He appears quite confused. ROS limited based on his confusion. Pulmonary: Denies: Cough, Dyspnea Cardiovascular: Denies: Chest Pain Gastrointestinal: Denies: Nausea, Vomiting Objective Physical Examination General Exam: Positive: Alert, No Acute Distress ENT Exam: Positive: Mucous membr. moist/pink Neck Exam: Positive: Supple, Negative: JVD, thyromegaly Chest Exam: Positive: Clear to auscultation, Normal air movement Heart Exam: Positive: Normal S1, Normal S2, Rate Normal, Regular Rhythm, Negative: Murmurs, Rubs Abdomen Exam: Positive: Normal bowel sounds, Soft, Negative: Hepatospenomegaly, Tenderness Extremity Exam: Positive: Normal pulses, Negative: Clubbing, Cyanosis, Edema Skin Exam: Positive: Nl turgor and temperature, Negative: Breakdown, Rash Psych Exam: Positive: Other (alert to self, repeats statements. ) Vital Signs/I&O Vital Signs Date Time Temp Pulse Resp B/P Pulse Ox O2 Delivery O2 Flow Rate FiO2 11/16/16 06:00 98.2 76 20 150/65 96 Room Air I&O- Last 24 Hours up to 6 AM 11/16/16 06:00 Intake Total 810 ml Output Total 450 ml Balance 360 ml Laboratory Data Labs 24H Laboratory Tests 2 11/15/16 10:30: Urine Amorphous Sediment , Urine Appearance CLEAR, Urine Color YELLOW, Urine pH 5.0, Urine Specific [place] 1.021, Urine Protein 2+H, Urine Glucose (UA) 2+H, Urine Ketones NEGATIVE, Urine Urobilinogen 0.2, Urine Bilirubin NEGATIVE, Urine Leukocyte Esterase NEGATIVE, Urine Bacteria (Auto) NEGATIVE, Urine Blood 3+H, Urine Calcium Carbonate Cryst(Auto) , Urine Calcium Oxalate Cryst (Auto) , Urine Calcium Phosphate [place] (Auto) , Urine Cellular Casts , Urine Cystine Crystals , Urine Granular Casts (Auto) , Urine Hyaline Casts (Auto) 0, Urine Leucine Crystals , Urine Mucus (Auto) , Urine Nitrite NEGATIVE, Urine Oval Fat Bodies (Auto) , Urine RBC (Auto) 36H, Urine Renal Epithelial Cells , Urine Sperm (Auto) , Urine Squamous Epithelial Cells 0, Urine Transitional Epithelial Cells , Urine Trichomonas (Auto) , Urine Triple Phosphate Cryst (Auto) , Urine Tyrosine Crystals , Urine Uric Acid Crystals (Auto) , Urine WBC (Auto) 19H, Urine Waxy Casts (Auto) , Urine Yeast-Like Cells (Auto) 11/15/16 11:40: Bedside Glucose (Misc Panel) 141H 11/15/16 17:04: Bedside Glucose (Misc Panel) 152H 11/15/16 20:14: Bedside Glucose (Misc Panel) 184H 11/16/16 06:03: White Blood Count 7.1, Red Blood Count 3.93L, Hemoglobin 12.0L, Hematocrit 36.2L , Mean Corpuscular Volume 92.1, Mean Corpuscular Hemoglobin 30.6, Mean Corpuscular Hemoglobin Concent 33.2, Red Cell Distribution Width 14.0, Platelet Count 222, Neutrophils (%) (Auto) 70.7H, Lymphocytes (%) (Auto) 15.5L, Monocytes (%) (Auto) 5.7H, Eosinophils (%) (Auto) 4.0H, Basophils (%) (Auto) 0.6 , Neutrophils # (Auto) 5.0, Lymphocytes # (Auto) 1.1L, Monocytes # (Auto) 0.4, Eosinophils # (Auto) 0.3, Basophils # (Auto) 0.0, Large Unclassified Cells # 0.3 , Large Unclassified Cells % 3.5 11/16/16 06:04: Blood Urea Nitrogen 32H, Creatinine 1.72H, Sodium Level 140, Potassium Level 4.2 , Chloride Level 102, Carbon Dioxide Level 29, Calcium Level 8.7L, Aspartate Amino Transf (AST/SGOT) 18, Alanine Aminotransferase (ALT/SGPT) 16, Alkaline Phosphatase 65, Total Bilirubin 0.7, Total Protein 6.8, Albumin 2.8L, Albumin/ Globulin Ratio 0.70L, Amylase Level 62, Anion Gap 9, Glomerular Filtration Rate 40.4, Prothromb Time International Ratio 1.90, Prothrombin Time 21.9H CBC/BMP Laboratory Tests 11/16/16 06:03 Red Blood Count 3.93 L, Mean Corpuscular Volume 92.1, Mean Corpuscular Hemoglobin 30.6, Mean Corpuscular Hemoglobin Concent 33.2, Red Cell Distribution Width 14.0, Neutrophils (%) (Auto) 70.7 H, Lymphocytes (%) (Auto) 15.5 L, Monocytes (%) (Auto) 5.7 H, Eosinophils (%) (Auto) 4.0 H, Basophils (%) (Auto) 0.6, Neutrophils # (Auto) 5.0, Lymphocytes # (Auto) 1.1 L, Monocytes # ( Auto) 0.4, Eosinophils # (Auto) 0.3, Basophils # (Auto) 0.0 11/16/16 06:04 Calcium Level 8.7 L, Aspartate Amino Transf (AST/SGOT) 18, Alanine Aminotransferase (ALT/SGPT) 16, Alkaline Phosphatase 65, Total Bilirubin 0.7, Total Protein 6.8, Albumin 2.8 L FSBS Laboratory Tests Test 11/15/16 11:40 11/15/16 17:04 11/15/16 20:14 Range/Units Bedside Glucose (Misc Panel) 141 152 184 83-110 MG/DL Microbiology Microbiology 11/14/16 Blood Culture - Preliminary, Resulted No growth after 24 hours . All specim... 11/15/16 Urine Culture - Final, Complete LEÓN BAUTISTA PA-C Nov 16, 2016 08:34 MIRACLE LAZARO MD Nov 16, 2016 13:52
[2016-11-16] MEDS: FUROSEMIDE 20 MG TAB PO SCH (09:10)
[2016-11-16] MEDS: OMEPRAZOLE 20 MG CAP PO SCH ×2 (09:10→21:00)
[2016-11-16] MEDS: ALLOPURINOL 100 MG TAB PO SCH (09:10)
[2016-11-16] MEDS: amLODIPine 5 MG TAB PO SCH (09:10)
[2016-11-16] MEDS: METOPROLOL TARTRATE 100 MG TAB PO SCH ×2 (09:11→21:00)
[2016-11-16] MEDS: CALCITRIOL 0.25 MCG CAP (S0169) PO SCH (09:11)
[2016-11-16] MEDS: HumaLOG INSULIN (NovoLOG) PER UNIT SC SCH ×4 (09:12→21:00)
[2016-11-16 14:00] VITALS: BP 134/66
--- NOTE | 2016-11-16 19:07 | ECHO ---
DATE OF PROCEDURE: 11/16/2016 REFERRING PHYSICIAN: Bertha Shaw INDICATION: Coronary artery disease. The requisition paper states that patient is status-post aortic valve replacement and mitral valve repair. DIMENSIONS: IVS: 1.1 LV: 5.0 LVPW: 1.1 LA: 4.6 Aorta: 3.0 FINDINGS: Study is of rather limited technical quality. Apparently it was only supine exam in uncooperative patient with poor acoustic windows. FINDINGS: Left ventricle is of normal size. Visualization was rather limited but there is definite septal wall motion abnormality. I cannot rule out apical wall motion abnormality as it was poorly visualized. Remaining left ventricle (LV) segments appear to have preserved systolic function. Overall ejection fraction (EF) is going to be low normal. I estimate EF around 50-55%. Right ventricle was very poorly seen. Both atria are probably severely enlarged. Aortic bioprosthesis was poorly visualized. It appears mildly sclerotic based on available views. Mitral valve was also only fairly well seen. There are degenerative abnormalities of mitral leaflet and calcifications in the mitral annulus. Tricuspid valve appears normal. Pulmonic valve was not well visualized. No pericardial effusion is noted. Inferior vena cava was not seen. Aortic root is normal. Aortic arch and abdominal aorta were not seen. Doppler interrogation of aortic valve reveals trivial insufficiency and no significant stenosis. Mean gradient across the valve of was 8 mmHg. There is no significant mitral insufficiency or stenosis. There is trace tricuspid insufficiency. Calculated pulmonary artery pressure was within normal limits, but this was based on very poor quality tricuspid regurgitation (TR) jet and should not be considered completely reliable. Trace pulmonary insufficiency is seen. Evaluation of diastolic function based on mitral inflow pattern and tissue Doppler imaging of mitral annulus reveal grade 2 diastolic dysfunction (tissue Doppler velocities of medial and lateral mitral annulus were 4.7 at 7.3 cm/sec respectively) COMMENTS 1. Study is of limited technical quality. 2. Normal LV size with septal wall motion abnormality and overall probably low normal LV systolic function. 3. Grade 2 diastolic dysfunction. 4. Poorly visualized bioprosthesis in aortic position with no stenosis and minimal insufficiency. 5. No significant mitral valve disease. 6. Unable to estimate central venous pressure and pulmonary artery pressure. COMMENT: Subacute bacterial prophylaxis (SBE) prophylaxis is recommended MTDD
[2016-11-16] MEDS: PRAVASTATIN 20 MG TAB PO SCH (21:00)
[2016-11-16] MEDS: FINASTERIDE 5 MG TAB PO SCH (21:00)
[2016-11-16] MEDS: DONEPEZIL 5 MG TAB PO SCH (21:00)
[2016-11-16] MEDS: ASPIRIN 81 MG CHEW TABLET PO SCH (21:00)
[2016-11-16 22:00] VITALS: BP 148/65
--- NOTE | 2016-11-16 23:53 | EDDOCDS ---
Physician Documentation [facility] Name: Wilberto Paris Age: 86 yrs Sex: Male : 1930 Arrival Date: 11/14/2016 Time: 10:35 Bed Admit Hold Private MD: Disposition: 11/14 18:14 I have independently interviewed and examined the patient, and I agree with the br1 investigation, diagnosis and treatment plan as documented by the Resident. Disposition: 11/14/16 18:05 Hospitalization ordered by Brando Monzon for Inpatient Admission. Preliminary diagnosis is Altered mental status, unspecified. - Bed requested for 5 Holt. - Status is Inpatient Admission. mcp - Condition is Stable. - Problem is new. - Symptoms are unchanged. Historical: - Allergies: SULFA (SULFONAMIDES); - Home Meds: 1. omeprazole 20 mg Oral cpDR 1 cap once daily (Last dose: 11/14/2016 08:00) 2. amlodipine 5 mg Oral tab 1 tab once daily (Last dose: 11/14/2016 08:00) 3. allopurinol 100 mg Oral tab 1 tab once daily (Last dose: 11/14/2016 08:00) 4. finasteride 5 mg oral tab 1 tab once daily nightly (Last dose: 11/13/2016) 5. calcitriol 0.25 mcg oral cap 2 caps once daily 5x per week (Last dose: 11/13/2016) 6. warfarin 5 mg Oral tab 1 tab once daily nightly (Last dose: 11/13/2016) 7. metoprolol tartrate 100 mg Oral tab 1 tab 2 times per day (Last dose: 11/14/2016 08:00) 8. pravastatin 80 mg oral tab 1 tab once daily nightly (Last dose: 11/13/2016) 9. donepezil 5 mg oral tab 2 tabs once daily nightly (Last dose: 11/13/2016) 10. Lasix 20 mg Oral tab 1 tab once daily nightly (Last dose: 11/13/2016) 11. Vitamin D Oral 1,000 unit daily nightly (Last dose: 11/13/2016) 12. aspirin 81 mg Oral tab 1 tab once daily nightly (Last dose: 11/13/2016) 13. Lantus 100 unit/mL Sub-Q soln 10 units nightly (Last dose: 11/13/2016) 14. Nitrostat 0.4 mg SL subl 1 tab as needed 15. 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 No barriers to communication noted, The patient speaks fluent Sammar[place], Speaks appropriately for age. - Family history: Not pertinent. - : The pt / caregiver states he / she is on anticoagulants: coumadin. Home medication list is obtained from family members. - Exposure Risk Screening:: None identified. Vital Signs: 10:42 BP 166 / 69; Pulse 76; Resp 18; Temp 97.3(O); Pulse Ox 95% on R/A; Weight 74.84 kg / nb2 164.99 lbs (R); Height 5 ft. 8 in. 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 br1 10:59 IV Saline Lock ordered. br1 10:59 Rhythm Strip to chart ordered. br1 11:00 CBC with Diff Ordered. EDMS 11:00 Cardiac Injury Profile Ordered. EDMS 11:00 Liver Profile Ordered. EDMS 11:00 MED Profile Ordered. EDMS 11:00 Thyroid Stimulating Hormone Ordered. EDMS 11:00 Troponin Ordered. EDMS 11:01 ECG WITH READING ER PHYS+CARDIAG ordered. EDMS 11:57 Financial registration complete. lg 12:32 [facility] Payment Agreement was scanned into [employer] and attached to record. lg 14:00 CBC with Diff Reviewed. jo4 14:00 Liver Profile Reviewed. jo4 14:00 MED Profile Reviewed. jo4 14:00 Troponin Reviewed. jo4 14:00 Cardiac Injury Profile Reviewed. jo4 14:00 Thyroid Stimulating Hormone Reviewed. jo4 14:04 CT Head Without Contrast Ordered. EDMS 14:04 Chest, 2 View (pa\E\lat) Ordered. EDMS 18:06 Chest, 2 View (pa\E\lat) Reviewed. jo4 18:24 BED REQUEST+ADM ordered. EDMS 20:35 Admission / Observation Status ordered. EDMS 20:35 CONSISTENT CARBOHYDRATES ordered. EDMS 20:35 2 GRAM SODIUM DIET ordered. EDMS 20:36 COMPLETE COMPHRENSIVE METABOLI Ordered. EDMS 20:37 URINALYSIS Ordered. EDMS 20:38 CBC WITH DIFFERENTIAL Ordered. EDMS 20:38 TROPONIN Ordered. EDMS 20:38 URINE CULTURE Ordered. EDMS 20:38 BLOOD CULTURES Ordered. EDMS 20:47 PT & APTT Ordered. EDMS 20:47 PROTHROMBIN TIME PROFILE\E\INR Ordered. EDMS 20:48 PHYSICAL THERAPY EVAL & TREAT ordered. EDMS 21:03 TROPONIN Ordered. EDMS 22:26 Admission Orders was scanned into [employer] and attached to record. ml3 22:29 Fingerstick Blood Sugar Ordered. EDMS 11/15 15:20 T-Sheet-- Draft Copy was scanned into [employer] and attached to record. kf3 17:05 ECG/EKG was scanned into [employer] and attached to record. kf3 Point of Care Testing: Blood Glucose: 11/14 22:23 Blood Glucose: 313 mg/dL; [facility] Ranges: Signatures: Dispatcher [employer] EDOH Maren Deng RN RN mcp Ganter, LoriLee, Reg Reg lg Billie Fermin, [employer] Production Technician Unit ml3 Renetta To RN RN jo3 Gurdeep Davila, Reg Reg kf3 Marshal Hanna MD MD br1 Renetta Valentin RN RN js13 Nilsa Roberts, DO jo4 Jh Cedeno RN RN sa The chart was reviewed and I authenticate all verbal orders and agree with the evaluation and treatment provided.Corrections: (The following items were deleted from the chart) 20:37 20:36 CBC WITH DIFFERENTIAL ordered. EDMS EDMS Attachments: 12:32 [facility] Payment Agreement lg 22:26 Admission Orders 3 11/15 15:20 T-Sheet-- Draft Copy kf3 17:05 ECG/EKG kf3 Chart Complete MTDD
--- NOTE | 2016-11-16 23:53 | EDDOCDS ---
Nurse's Notes [facility] Name: Wilberto Paris Age: 86 yrs Sex: Male : 1930 Arrival Date: 11/14/2016 Time: 10:35 Bed Admit Hold Private MD: Diagnosis: Altered mental status, unspecified Presentation: 11/14 10:38 Presenting complaint: EMS states: Progressive worsening of dementia. Pt having jo3 difficulty ambulating now at home. Family made statements at home that safety is an issue for pt and he may need penitentiary placement. Adult Sepsis Screening: The patient does not have new or worsening altered mentation. Suicide/Homicide risk assessment- the patient denies having any suicidal and/or homicidal ideations and does not present with any other emotional, behavioral or mental health complaints. Status: Patient is not a professional services specialist or dependent. Transition of care: patient was not received from another setting of care. 10:38 Acuity: TINY Level 3 jo3 10:38 Method Of Arrival: Ambulance jo3 22:50 Adult Sepsis Screening: Patient has new or worsening altered mentation (1 point). mcp Patient's respiratory rate is less than 22. Systolic blood pressure is greater than 100. Patient has a qSOFA score of 1- Negative Sepsis Screen. Historical: - Allergies: SULFA (SULFONAMIDES); - Home Meds: 1. omeprazole 20 mg Oral cpDR 1 cap once daily (Last dose: 11/14/2016 08:00) 2. amlodipine 5 mg Oral tab 1 tab once daily (Last dose: 11/14/2016 08:00) 3. allopurinol 100 mg Oral tab 1 tab once daily (Last dose: 11/14/2016 08:00) 4. finasteride 5 mg oral tab 1 tab once daily nightly (Last dose: 11/13/2016) 5. calcitriol 0.25 mcg oral cap 2 caps once daily 5x per week (Last dose: 11/13/2016) 6. warfarin 5 mg Oral tab 1 tab once daily nightly (Last dose: 11/13/2016) 7. metoprolol tartrate 100 mg Oral tab 1 tab 2 times per day (Last dose: 11/14/2016 08:00) 8. pravastatin 80 mg oral tab 1 tab once daily nightly (Last dose: 11/13/2016) 9. donepezil 5 mg oral tab 2 tabs once daily nightly (Last dose: 11/13/2016) 10. Lasix 20 mg Oral tab 1 tab once daily nightly (Last dose: 11/13/2016) 11. Vitamin D Oral 1,000 unit daily nightly (Last dose: 11/13/2016) 12. aspirin 81 mg Oral tab 1 tab once daily nightly (Last dose: 11/13/2016) 13. Lantus 100 unit/mL Sub-Q soln 10 units nightly (Last dose: 11/13/2016) 14. Nitrostat 0.4 mg SL subl 1 tab as needed 15. 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 No barriers to communication noted, The patient speaks fluent Mongolian, Speaks appropriately for age. - Family history: Not pertinent. - : The pt / caregiver states he / she is on anticoagulants: coumadin. Home medication list is obtained from family members. - Exposure Risk Screening:: None identified. Screenin:34 Screening information is obtained from the patient. Fall risk: At risk due to age, jo3 apparent cognitive impairment. Fall risk: The following interventions are performed due to a positive Fall Risk Screen: Fall Risk is added to Special Handling on the patient Summary Screen. A Fall Risk Bracelet was applied to the patient. Side Rails are placed in the up position. A Call Carl is given with instruction to call for help when getting out of bed. Assistance ADL's: Requires assistance with meal preparation, this assistance is provided by family members, medication administration, assistance is provided by family members. Abuse/DV Screen: The patient / caregiver reports he/she is: not in a situation that causes fear, pain or injury. Unable to Assess. Nutritional screening: No deficits noted. home support is inadequate. 12:09 Advance Directives: There is no active DNR order. js13 Assessment: 11:34 General: Appears in no apparent distress, comfortable, Behavior is appropriate for age, jo3 cooperative. Pain: Denies pain. Neurological: Level of Consciousness is awake, alert, Oriented to person. Cardiovascular: No deficits noted. Respiratory: Airway is patent Respiratory effort is even, unlabored, Breath sounds are clear bilaterally. Derm: Skin is pink, warm & dry. 12:53 General: Appears in no apparent distress, comfortable, Behavior is cooperative. Pain: js13 Denies pain. Neurological: Level of Consciousness is awake, alert, Oriented to person. Respiratory: Airway is patent Respiratory effort is even, unlabored, Respiratory pattern is regular. Derm: Skin is pink, warm & dry. 12:54 Cardiovascular: Rhythm is regular Chest pain is denied. js13 13:29 Adult Sepsis Screening: Patient has new or worsening altered mentation (1 point). js13 Patient's respiratory rate is less than 22. Systolic blood pressure is greater than 100. Patient has a qSOFA score of 1- Negative Sepsis Screen. General: Appears in no apparent distress, comfortable, Behavior is appropriate for age, cooperative. Pain: Denies pain. Neurological: Level of Consciousness is awake, alert. Cardiovascular: Rhythm is regular Chest pain is denied. Respiratory: Airway is patent Respiratory effort is even, unlabored, Respiratory pattern is regular. Derm: Skin is pink, warm & dry. 13:30 General: Dr Cagle aware of patient not keeping BP cuff and O2 sat on and is OK with it. . js13 14:21 General: Appears in no apparent distress, comfortable, Behavior is appropriate for age, pml cooperative. Pain: Denies pain. Neurological: Level of Consciousness is awake, alert. Cardiovascular: Rhythm is regular Chest pain is denied. Respiratory: Airway is patent Respiratory effort is even, unlabored, Respiratory pattern is regular, Breath sounds are clear. Derm: Skin is pink, warm & dry. 15:37 General: Appears in no apparent distress, comfortable, Behavior is appropriate for age, js13 cooperative. Pain: Denies pain. Neurological: Level of Consciousness is awake, alert, Oriented to person. Cardiovascular: Rhythm is regular Chest pain is denied. Respiratory: Airway is patent Respiratory effort is even, unlabored, Respiratory pattern is regular, Breath sounds are clear. Derm: Skin is pink, warm & dry. 15:37 Adult Sepsis Screening: Patient has new or worsening altered mentation (1 point). js13 Patient's respiratory rate is less than 22. Systolic blood pressure is greater than 100. Patient has a qSOFA score of 1- Negative Sepsis Screen. 16:25 Reassessment: Patient appears in no apparent distress at this time. CT scan completed jo3 at this time. Tolerated fair. respirations unlabored, deep and regular on RA. Skin is pink, warm and dry . 17:46 General: Appears in no apparent distress, comfortable, Behavior is cooperative. Pain: js13 Denies pain. Neurological: Level of Consciousness is awake, alert, Oriented to person. Cardiovascular: Rhythm is regular Chest pain is denied. Respiratory: Airway is patent Respiratory effort is even, unlabored, Respiratory pattern is regular, symmetrical, Breath sounds are clear. Derm: Skin is pink, warm & dry. 18:07 General: Appears in no apparent distress, comfortable, Behavior is cooperative. js13 Neurological: Level of Consciousness is awake, alert. Respiratory: Airway is patent Respiratory effort is even, unlabored, Respiratory pattern is regular, symmetrical. Derm: Skin is pink, warm & dry. 19:10 General: Appears in no apparent distress, comfortable, Behavior is cooperative. jo3 Neurological: Level of Consciousness is awake, alert, confused. Cardiovascular: No deficits noted. Respiratory: Airway is patent Respiratory effort is even, unlabored. Derm: Skin is pink, warm & dry. 20:15 Reassessment: Patient appears in no apparent distress at this time. Patient denies pain jo3 at this time. Dr Monzon in to see pt at this time. Family remains at bedside. Pt attends changed at this time and scant amount of blood noted in attends. determined to be coming from within foreskin on penis. dr Monzon notified . 21:15 Reassessment: Patient appears in no apparent distress at this time. Patient denies pain jo3 at this time. Settled in bed with family at bedside. Awaiting admission. Aware of plan of care . 22:24 General: Dr Monzon notified of Troponin 0.25 by Rose Méndez RN and orders received. [facility] Vital Signs: 10:42 BP 166 / 69; Pulse 76; Resp 18; Temp 97.3(O); Pulse Ox 95% on R/A; Weight 74.84 kg (R); nb2 Height 5 ft. 8 in. (172.72 cm) (R); Pain 0/10; 11:11 BP 147 / 65 (auto/); ml6 11:11 Pulse 68 MON; ml6 13:29 js13 17:56 BP 172 / 88; Pulse 69; Resp 18; Temp 97.3(O); Pulse Ox 90% on R/A; Pain 0/10; nb2 22:28 BP 147 / 65 RA Supine (auto/reg); Pulse 70 MON; Resp 22 S; Temp 99.1(TE); Pulse Ox 93% cln on R/A; 10:42 Body Mass Index 25.09 (74.84 kg, 172.72 cm) nb2 13:29 Patient refusing to keep BP cuff on js13 Vitals: 10:38 Log In Time N/A - ambulance arrival. jo3 10:42 Log In Time N/A - ambulance arrival. nb2 ED Course: 10:36 Patient visited by Mindy Martin PCA. ar3 10:36 Renetta Valentin RN is Primary Nurse. ar3 10:36 Patient moved to Waiting ar3 10:36 Patient moved to 13 ar3 10:42 Triage Initiated jo3 10:42 Placed in gown. Bed in low position. Call light in reach. Side rails up X2. Cardiac nb2 monitor on. Pulse ox on. NIBP on. 10:43 Patient visited by Samantha Yanes. nb2 10:44 Patient visited by Renetta To RN. jo3 11:01 Patient visited by Renetta To,ZE. jo3 11:12 [facility] jo4 11:12 Marshal Hanna MD is Attending Physician. jo4 11:22 Patient visited by Nilsa Roberts DO. jo4 11:22 Patient visited by Nilsa Roberts DO. jo4 11:34 The patient / caregiver is instructed regarding the plan of care and ED course. jo3 11:34 Inserted saline lock: 18 gauge in right antecubital area. Labs drawn. (by ED staff). jo3 Sent per order to lab. 11:39 Patient visited by Renetta To RN. jo3 11:50 Patient visited by Kaveh Lopez. dem1 11:50 EKG done. (by ED staff). Reviewed by Nilsa Roberts DO. dem1 12:32 [facility] [place] was scanned into [employer] and attached to record. lg 12:55 Patient visited by Renetta Valentin RN. js13 13:30 Patient visited by Renetta Valentin RN. js13 14:22 Patient visited by Lynn Flores,ZE. pml 14:33 Patient visited by Marshal Hanna MD. br1 15:38 Patient visited by Renetta Valentin,ZE. js13 16:43 Patient visited by Adalberto Tripp, ZE. ml6 17:44 Chest, 2 View (pa\E\lat) Returned. EDMS 17:48 Patient visited by Renetta Valentin,ZE. js13 17:56 Patient visited by Samantha Yanes. nb2 18:04 Brando Monzon MD is Hospitalizing Provider. jo4 18:07 Patient visited by Renetta Valentin RN. js13 19:56 Primary Nurse role handed off by Renetta Valentin RN alex 20:12 Patient visited by Marychuy Platt PCA. alex 20:12 Cleaned of incontinence. Linen changed. alex 20:43 Patient moved to Admit Hold ml3 20:46 Patient visited by Renetta To RN. jo3 21:16 Patient visited by Renetta To RN. jo3 22:24 Patient visited by Maren Deng, ZE. mcp 22:26 Admission Orders was scanned into [employer] and attached to record. ml3 22:29 Patient visited by Marylin Christiansen PCA. cln 22:49 No procedures done that require assistance. [facility] 11/15 15:20 T-Sheet-- Draft Copy was scanned into [employer] and attached to record. kf3 17:05 ECG/EKG was scanned into [employer] and attached to record. 3 Point of Care Testing: Blood Glucose: 11/14 22:23 Blood Glucose: 313 mg/dL; [facility] Ranges: Order Results: Lab Order: CBC with Diff; SPEC'M 11/14/16 11:29 Test: WHITE BLOOD COUNT; Value: 8.7; Range: 4.0-10.0; Units: K/mm3; Status: F Test: RED BLOOD COUNT; Value: 3.99; Range: 4.30-6.10; Abnormal: Below low normal; Units: M/mm3; Status: F Test: HEMOGLOBIN; Value: 12.1; Range: 14.0-18.0; Abnormal: Below low normal; Units: g/dl; Status: F Test: HEMATOCRIT; Value: 36.8; Range: 42.0-52.0; Abnormal: Below low normal; Units: %; Status: F Test: MEAN CORPUSCULAR VOLUME; Value: 92.3; Range: 80.0-96.0; Units: fl; Status: F Test: MEAN CORPUSCULAR HEMOGLOBIN; Value: 30.4; Range: 27.0-33.0; Units: pg; Status: F Test: MEAN CORPUSCULAR HGB CONC; Value: 32.9; Range: 32.0-36.5; Units: g/dl; Status: F Test: RED CELL DISTRIBUTION WIDTH; Value: 13.7; Range: 11.5-14.5; Units: %; Status: F Test: PLATELET COUNT, AUTOMATED; Value: 197; Range: 150-450; Units: k/mm3; Status: F Test: NEUTROPHILS %; Value: 77.2; Range: 36.0-66.0; Abnormal: Above high normal; Units: %; Status: F Test: LYMPH %; Value: 11.1; Range: 24.0-44.0; Abnormal: Below low normal; Units: %; Status: F Test: MONO %; Value: 7.0; Range: 0.0-5.0; Abnormal: Above high normal; Units: %; Status: F Test: EOS %; Value: 1.6; Range: 0.0-3.0; Units: %; Status: F Test: BASO %; Value: 0.3; Range: 0.0-1.0; Units: %; Status: F Test: LARGE UNSTAINED CELL %; Value: 2.6; Range: 0.0-4.0; Units: %; Status: F Test: NEUTROPHILS #; Value: 6.7; Range: 1.8-7.7; Units: K/mm3; Status: F Test: LYMPH #; Value: 1.0; Range: 1.5-4.5; Abnormal: Below low normal; Units: K/mm3; Status: F Test: MONO #; Value: 0.6; Range: 0.0-0.8; Units: K/mm3; Status: F Test: EOS #; Value: 0.1; Range: 0.0-0.50; Units: K/mm3; Status: F Test: BASO #; Value: 0.0; Range: 0.0-0.2; Units: K/mm3; Status: F Test: LARGE UNSTAINED CELL #; Value: 0.2; Range: 0.0-0.4; Units: K/mm3; Status: F Lab Order: Cardiac Injury Profile; SPEC'M 11/14/16 11:29 Test: CPK CREATINE PHOSPHOKINASE; Value: 101; Range: 39-308; Units: U/L; Status: F Test: CK-MB VALUE MASS; Value: 1.0; Range: 0.0-3.6; Units: NG/ML; Status: F Test: MB/CK RELATIVE INDEX; Value: 0.99; Range: < OR =4; Status: F Test Note: ; DIAGNOSIS CRITERIA MMB ng/ml Relative Index (RI) NON-AMI < or = 5 N/A CAAL [place]ONE > 5 < or = 4 AMI > 5 > 4 Lab Order: Liver Profile; SPEC'M 11/14/16 11:29 Test: AST/SGOT; Value: 25; Range: 15-37; Units: U/L; Status: F Test: ALT/SGPT; Value: 18; Range: 12-78; Units: U/L; Status: F Test: ALKALINE PHOSPHATASE; Value: 72; Range: 45-117; Units: U/L; Status: F Test: BILIRUBIN,TOTAL; Value: 0.7; Range: 0.2-1.0; Units: MG/DL; Status: F Test: BILIRUBIN,DIRECT; Value: 0.1; Range: 0.0-0.2; Units: MG/DL; Status: F Test: TOTAL PROTEIN; Value: 6.8; Range: 6.4-8.2; Units: GM/DL; Status: F Test: ALBUMIN; Value: 3.1; Range: 3.2-5.2; Abnormal: Below low normal; Units: GM/DL; Status: F Test: ALBUMIN/GLOBULIN RATIO; Value: 0.84; Range: 1.00-1.93; Abnormal: Below low normal; Status: F Lab Order: MED Profile; SPEC'M 11/14/16 11:29 Test: GLUCOSE, FASTING; Value: 275; Range: 83-110; Abnormal: Above high normal; Units: MG/DL; Status: F Test: BLOOD UREA NITROGEN; Value: 36; Range: 7-18; Abnormal: Above high normal; Units: MG/DL; Status: F Test: CREATININE FOR GFR; Value: 1.90; Range: 0.70-1.30; Abnormal: Above high normal; Units: MG/DL; Status: F Test: GLOMERULAR FILTRATION RATE; Value: 36.0; Range: >35; Status: F Test: SODIUM LEVEL; Value: 139; Range: 136-145; Units: MEQ/L; Status: F Test: POTASSIUM SERUM; Value: 5.0; Range: 3.5-5.1; Units: MEQ/L; Status: F Test: CHLORIDE LEVEL; Value: 102; Range: 98-107; Units: MEQ/L; Status: F Test: CARBON DIOXIDE LEVEL; Value: 31; Range: 21-32; Units: MEQ/L; Status: F Test: ANION GAP; Value: 6; Range: 8-16; Abnormal: Below low normal; Units: MEQ/L; Status: F Test: CALCIUM LEVEL; Value: 9.0; Range: 8.8-10.2; Units: MG/DL; Status: F Test Note: ; Units are mL/min/1.73 m2 Chronic Kidney Disease Staging per NKF: Stage I & II GFR >=60 Normal to Mildly Decreased Stage III GFR 30-59 Moderately Decreased Stage IV GFR 15-29 Severely Decreased Stage V GFR <15 Very Little GFR Left ESRD GFR <15 on OUTDOOR ILLUMINATING ENGINEER Lab Order: Thyroid Stimulating Hormone; SPEC'M 11/14/16 11:29 Test: THYROID STIMULATING HORMONE; Value: 1.230; Range: 0.358-3.740; Units: uIU/ML; Status: F Lab Order: Troponin; SPEC'M 11/14/16 11:29 Test: TROPONIN I; Value: 0.35; Range: < 0.10; Abnormal: Above high normal; Units: NG/ML; Status: F Test Note: ; Troponin I Reference Interval for Appsee LOCI: 99th Percentile= 0.00-0.045 ng/ml Risk Stratification: <= 0.10 ng/ml Decreased Risk for Adverse Clinical Events. 0.10-1.50 ng/ml Increased Risk for Adverse Clinical Events. Evaluation of additional criterion and/or repeat testing in 2-6 hours is suggested to rule out myocardial damage. >= 1.50 ng/ml Indicative of Myocardial Injury. Lab Order: PT & APTT; SPEC'M 11/14/16 21:58 Test: PROTHROMBIN TIME; Value: 25.2; Range: 12.3-14.5; Abnormal: Above high normal; Units: SECONDS; Status: F Test: INR; Value: 2.28; Status: F Test: PARTIAL THROMBOPLASTIN TIME; Value: 62.9; Range: 26.6-37.1; Abnormal: Above high normal; Units: SECONDS; Status: F Test Note: ; THERAPUTIC HUMAN INR VALUES INDICATIONS NORMAL RANGES PROPHYLAXIS/TREATMENT OF: VENOUS THROMBOSIS 2.0-3.0 PULMONARY EMBOLISM 2.0-3.0 PREVENTION OF SYSTEMIC EMBOLISM FROM: TISSUE HEART VALVES 2.0-3.0 ACUTE MYOCARDIAL INFARCTION 2.0-3.0 VALVULAR HEART DISEASE 2.0-3.0 ATRIAL FIBRILLATION 2.0-3.0 MECHANICAL VALVES(HIGH RISK) 2.5-3.5 RECURRENT MYOCARDIAL INFARCTION 2.5-3.5 Lab Order: TROPONIN; SPEC'M 11/14/16 21:05 Test: TROPONIN I; Value: 0.25; Range: < 0.10; Abnormal: High; Units: NG/ML; Status: F Test Note: ; Troponin I Reference Interval for Appsee LOCI: 99th Percentile= 0.00-0.045 ng/ml Risk Stratification: <= 0.10 ng/ml Decreased Risk for Adverse Clinical Events. 0.10-1.50 ng/ml Increased Risk for Adverse Clinical Events. Evaluation of additional criterion and/or repeat testing in 2-6 hours is suggested to rule out myocardial damage. >= 1.50 ng/ml Indicative of Myocardial Injury. Lab Order: Fingerstick Blood Sugar; SPEC'M 11/14/16 22:20 Test: BEDSIDE GLUCOSE; Value: 313; Range: 83-110; Abnormal: Above high normal; Units: MG/DL; Status: F Radiology Order: Chest, 2 View (pa\E\lat) Test: Chest, 2 View (pa\E\lat) REASON FOR EXAMINATION: Elevated troponin; Chest, semi upright AP and lateral views:; ; Comparisons are the PA and lateral views performed earlier today and PA and; lateral views of 05/01/2013.; ; There is an incomplete respiratory effort with under aeration of the lung bases.; ; Cardiac size is magnified by positioning.; ; No focal infiltrates or effusions are identified.; ; Sternotomy wires, pacemaker and cardiac valve replacement are all again noted.; ; Impression:; ; Incomplete inspiratory effort. Cardiac size is magnified by positioning.; ; ; Signed by; Jagjit Whatley MD 11/14/2016 04:50 P; Outcome: 18:05 Decision to Hospitalize by Provider. jo4 22:48 Discharge Assessment: patient administered narcotics - no. The following High Risk [facility] Discharge criteria are identified: None. Admitted to Med/Surg accompanied by tech, via stretcher, with chart. Condition: stable. Property given to family member, . 22:49 CT Study completed. [facility] 22:52 Patient left the ED. [facility] Signatures: Dispatcher [employer] EDOK Maren Deng RN Rashmi Rowe mcp, Reg Reg lg JenySharan joseBrittney, Intranet Specialist Unit ml3 Renetta To RN RN jo3 Gurdeep Davila, Reg Reg kf3 Marshal Hanna MD MD br1 Adalberto Tripp RN RN ml6 Mindy Martin, CONSTRUCTION SERVICES TECHNICIAN CONSTRUCTION SERVICES TECHNICIAN ar3 Marychuy Platt, CONSTRUCTION SERVICES TECHNICIAN CONSTRUCTION SERVICES TECHNICIAN Lynn Alston RN RN pml Mack, Demeishia dem1 Renetta Valentin RN RN js13 Nilsa Roberts, DO DO jo4 Marylin Christiansen, CONSTRUCTION SERVICES TECHNICIAN CONSTRUCTION SERVICES TECHNICIAN elyn Samantha Yanes2 Corrections: (The following items were deleted from the chart) 16:44 16:20 Reassessment: Patient appears in no apparent distress at this time. CT scan jo3 completed at this time. Tolerated fair. respirations unlabored, deep and regular on RA. Skin is pink, warm and dry . ml6 Chart Complete MTDD
--- NOTE | 2016-11-16 23:54 | EDDOCDS ---
Physician Documentation [facility] Name: Wilberto Paris Age: 86 yrs Sex: Male : 1930 Arrival Date: 11/14/2016 Time: 10:35 Bed Admit Hold Private MD: Disposition: 11/14 18:14 I have independently interviewed and examined the patient, and I agree with the br1 investigation, diagnosis and treatment plan as documented by the Resident. Disposition: 11/14/16 18:05 Hospitalization ordered by Brando Monzon for Inpatient Admission. Preliminary diagnosis is Altered mental status, unspecified. - Bed requested for 5 Holt. - Status is Inpatient Admission. mcp - Condition is Stable. - Problem is new. - Symptoms are unchanged. Historical: - Allergies: SULFA (SULFONAMIDES); - Home Meds: 1. omeprazole 20 mg Oral cpDR 1 cap once daily (Last dose: 11/14/2016 08:00) 2. amlodipine 5 mg Oral tab 1 tab once daily (Last dose: 11/14/2016 08:00) 3. allopurinol 100 mg Oral tab 1 tab once daily (Last dose: 11/14/2016 08:00) 4. finasteride 5 mg oral tab 1 tab once daily nightly (Last dose: 11/13/2016) 5. calcitriol 0.25 mcg oral cap 2 caps once daily 5x per week (Last dose: 11/13/2016) 6. warfarin 5 mg Oral tab 1 tab once daily nightly (Last dose: 11/13/2016) 7. metoprolol tartrate 100 mg Oral tab 1 tab 2 times per day (Last dose: 11/14/2016 08:00) 8. pravastatin 80 mg oral tab 1 tab once daily nightly (Last dose: 11/13/2016) 9. donepezil 5 mg oral tab 2 tabs once daily nightly (Last dose: 11/13/2016) 10. Lasix 20 mg Oral tab 1 tab once daily nightly (Last dose: 11/13/2016) 11. Vitamin D Oral 1,000 unit daily nightly (Last dose: 11/13/2016) 12. aspirin 81 mg Oral tab 1 tab once daily nightly (Last dose: 11/13/2016) 13. Lantus 100 unit/mL Sub-Q soln 10 units nightly (Last dose: 11/13/2016) 14. Nitrostat 0.4 mg SL subl 1 tab as needed 15. 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 No barriers to communication noted, The patient speaks fluent Monegasque, Speaks appropriately for age. - Family history: Not pertinent. - : The pt / caregiver states he / she is on anticoagulants: coumadin. Home medication list is obtained from family members. - Exposure Risk Screening:: None identified. Vital Signs: 10:42 BP 166 / 69; Pulse 76; Resp 18; Temp 97.3(O); Pulse Ox 95% on R/A; Weight 74.84 kg / nb2 164.99 lbs (R); Height 5 ft. 8 in. (172.72 cm) (R); Pain 0/10; 11:11 BP 147 / 65 (auto/); ml6 11:11 Pulse 68 MON; ml6 13:29 js13 17:56 BP 172 / 88; Pulse 69; Resp 18; Temp 97.3(O); Pulse Ox 90% on R/A; Pain 0/10; nb2 22:28 BP 147 / 65 RA Supine (auto/reg); Pulse 70 MON; Resp 22 S; Temp 99.1(TE); Pulse Ox 93% cln on R/A; 10:42 Body Mass Index 25.09 (74.84 kg, 172.72 cm) nb2 13:29 Patient refusing to keep BP cuff on js13 MDM: 10:59 Primer Powder Blender Wet/Pulse Ox/q 15 min VS ordered. br1 10:59 IV Saline Lock ordered. br1 10:59 Rhythm Strip to chart ordered. br1 11:00 CBC with Diff Ordered. EDMS 11:00 Cardiac Injury Profile Ordered. EDMS 11:00 Liver Profile Ordered. EDMS 11:00 MED Profile Ordered. EDMS 11:00 Thyroid Stimulating Hormone Ordered. EDMS 11:00 Troponin Ordered. EDMS 11:01 ECG WITH READING ER PHYS+CARDIAG ordered. EDMS 11:57 Financial registration complete. lg 12:32 [facility] Payment Agreement was scanned into [employer] and attached to record. lg 14:00 CBC with Diff Reviewed. jo4 14:00 Liver Profile Reviewed. jo4 14:00 MED Profile Reviewed. jo4 14:00 Troponin Reviewed. jo4 14:00 Cardiac Injury Profile Reviewed. jo4 14:00 Thyroid Stimulating Hormone Reviewed. jo4 14:04 CT Head Without Contrast Ordered. EDMS 14:04 Chest, 2 View (pa\E\lat) Ordered. EDMS 18:06 Chest, 2 View (pa\E\lat) Reviewed. jo4 18:24 BED REQUEST+ADM ordered. EDMS 20:35 Admission / Observation Status ordered. EDMS 20:35 CONSISTENT CARBOHYDRATES ordered. EDMS 20:35 2 GRAM SODIUM DIET ordered. EDMS 20:36 COMPLETE COMPHRENSIVE METABOLI Ordered. EDMS 20:37 URINALYSIS Ordered. EDMS 20:38 CBC WITH DIFFERENTIAL Ordered. EDMS 20:38 TROPONIN Ordered. EDMS 20:38 URINE CULTURE Ordered. EDMS 20:38 BLOOD CULTURES Ordered. EDMS 20:47 PT & APTT Ordered. EDMS 20:47 PROTHROMBIN TIME PROFILE\E\INR Ordered. EDMS 20:48 PHYSICAL THERAPY EVAL & TREAT ordered. EDMS 21:03 TROPONIN Ordered. EDMS 22:26 Admission Orders was scanned into [employer] and attached to record. ml3 22:29 Fingerstick Blood Sugar Ordered. EDMS 11/15 15:20 T-Sheet-- Draft Copy was scanned into [employer] and attached to record. kf3 17:05 ECG/EKG was scanned into [employer] and attached to record. kf3 Point of Care Testing: Blood Glucose: 11/14 22:23 Blood Glucose: 313 mg/dL; [facility] Ranges: Signatures: Dispatcher [employer] EDMA Maren Deng RN RN mcp Ganter, LoriLee, Reg Reg lg Billie Fermin, [facility] ml3 Renetta To RN RN jo3 Gurdeep Davila, Reg Reg kf3 Marshal Hanna MD MD br1 Renetat Valentin RN RN js13 Nilsa Roberts, DO jo4 Jh Cedeno RN RN sa The chart was reviewed and I authenticate all verbal orders and agree with the evaluation and treatment provided.Corrections: (The following items were deleted from the chart) 20:37 20:36 CBC WITH DIFFERENTIAL ordered. EDMS EDMS Attachments: 12:32 [facility] Payment Agreement lg 22:26 Admission Orders 3 11/15 15:20 T-Sheet-- Draft Copy kf3 17:05 ECG/EKG kf3 Chart Complete MTDD
[2016-11-17 06:00] VITALS: BP 158/71
[2016-11-17 07:04] LABS: INR 1.56
[2016-11-17] MEDS: CALCITRIOL 0.25 MCG CAP (S0169) PO SCH (08:49)
[2016-11-17] MEDS: OMEPRAZOLE 20 MG CAP PO SCH ×2 (08:49→21:55)
[2016-11-17] MEDS: METOPROLOL TARTRATE 100 MG TAB PO SCH ×2 (08:50→21:45)
[2016-11-17] MEDS: ALLOPURINOL 100 MG TAB PO SCH (08:50)
[2016-11-17] MEDS: FUROSEMIDE 20 MG TAB PO SCH (08:50)
[2016-11-17] MEDS: amLODIPine 5 MG TAB PO SCH (08:50)
[2016-11-17] MEDS: HumaLOG INSULIN (NovoLOG) PER UNIT SC SCH ×4 (08:51→17:31)
--- NOTE | 2016-11-17 08:55 | DSES ---
DATE OF ADMISSION: 11/14/2016 DATE OF DISCHARGE: DATE OF CARE HOME FACILITY (SNF): 11/17/2016 PRIMARY CARE PHYSICIAN: Dr. Caldwell This is an 86-year-old male patient who had progressive dementia who presented to [facility] emergency room with a two week history of increased generalized weakness. According to his , she also noted he had been more confused and had episodes of urinary incontinence which he had never had before. His appetite had overall decreased, although he had not had any vomiting or diarrhea. No fevers were noted. The patient's Regla is his primary caregiver. She confirms that the patient has been progressively declining over the last several weeks at home. He was admitted to the hospital with a mildly elevated troponin and suprapubic tenderness. During his hospitalization, he remained afebrile without any leukocytosis. Blood culture was negative. Urine culture was also negative. His troponin was elevated on admission, although this is felt to be secondary to renal impairment with a chronic kidney disease Stage IV. He is eating well. He is demonstrating some confusion. Patient and Family Services have met with the patient and his in terms of terminal worker care planning as she is no longer able to take care of the patient at home. DISCHARGE DIAGNOSES: 1. Mental status change with progressive dementia. 2. Elevated troponin. 3. Chronic kidney disease Stage IV. 4. Diabetes mellitus type 2. 5. Coronary artery disease. DISCHARGE MEDICATIONS AND PLAN: Will be summarized at time of discharge from the hospital.
[2016-11-17 14:00] VITALS: BP 153/72
[2016-11-17] MEDS: WARFARIN SOD 5 MG TAB PO SCH (17:30)
[2016-11-17 19:11] VITALS: BP 155/77
[2016-11-17] MEDS ORDERED: METOPROLOL TART 50 MG TAB PO ONE (21:45)
[2016-11-17] MEDS: ASPIRIN 81 MG CHEW TABLET PO SCH (21:55)
[2016-11-17] MEDS: FINASTERIDE 5 MG TAB PO SCH (21:55)
[2016-11-17] MEDS: PRAVASTATIN 20 MG TAB PO SCH (21:55)
[2016-11-17] MEDS: DONEPEZIL 5 MG TAB PO SCH (21:55)
[2016-11-17 22:00] VITALS: BP 121/60
[2016-11-18 06:00] VITALS: BP 149/71
[2016-11-18 07:40] LABS: INR 1.35
[2016-11-18] MEDS: HumaLOG INSULIN (NovoLOG) PER UNIT SC SCH ×4 (08:33→20:15)
[2016-11-18] MEDS: OMEPRAZOLE 20 MG CAP PO SCH ×2 (08:33→20:15)
[2016-11-18] MEDS: ACETAMINOPHEN TAB 650MG DOSE (2X325MG) PO PRN ×2 (08:33→17:20)
[2016-11-18] MEDS: METOPROLOL TARTRATE 100 MG TAB PO SCH ×2 (08:33→20:15)
[2016-11-18] MEDS: ALLOPURINOL 100 MG TAB PO SCH (08:33)
[2016-11-18] MEDS: amLODIPine 5 MG TAB PO SCH (08:34)
[2016-11-18] MEDS: FUROSEMIDE 20 MG TAB PO SCH (08:34)
[2016-11-18] MEDS: CALCITRIOL 0.25 MCG CAP (S0169) PO SCH (08:34)
[2016-11-18] MEDS: WARFARIN SOD 5 MG TAB PO SCH (17:20)
[2016-11-18] MEDS: FINASTERIDE 5 MG TAB PO SCH (20:15)
[2016-11-18] MEDS: PRAVASTATIN 20 MG TAB PO SCH (20:15)
[2016-11-18] MEDS: DONEPEZIL 5 MG TAB PO SCH (20:15)
[2016-11-18] MEDS: ASPIRIN 81 MG CHEW TABLET PO SCH (20:15)
[2016-11-19 06:00] VITALS: BP 158/76
[2016-11-19 07:08] LABS: INR 1.6
[2016-11-19] MEDS: CALCITRIOL 0.25 MCG CAP (S0169) PO SCH (07:59)
[2016-11-19] MEDS: ALLOPURINOL 100 MG TAB PO SCH (07:59)
[2016-11-19] MEDS: HumaLOG INSULIN (NovoLOG) PER UNIT SC SCH ×5 (07:59→21:00)
[2016-11-19] MEDS: METOPROLOL TARTRATE 100 MG TAB PO SCH ×2 (07:59→22:25)
[2016-11-19] MEDS: amLODIPine 5 MG TAB PO SCH (08:00)
[2016-11-19] MEDS: OMEPRAZOLE 20 MG CAP PO SCH ×2 (08:00→21:00)
[2016-11-19] MEDS: FUROSEMIDE 20 MG TAB PO SCH (08:00)
[2016-11-19] MEDS: WARFARIN SOD 5 MG TAB PO SCH ×2 (17:00→17:34)
[2016-11-19] MEDS ORDERED: LEVEMIR (INSULIN DETEMIR) 1 UNITS/0.01ML SC SCH (21:00)
[2016-11-19] MEDS: ASPIRIN 81 MG CHEW TABLET PO SCH (21:00)
[2016-11-19] MEDS: PRAVASTATIN 20 MG TAB PO SCH (21:00)
[2016-11-19] MEDS: FINASTERIDE 5 MG TAB PO SCH (21:00)
[2016-11-19] MEDS: DONEPEZIL 5 MG TAB PO SCH (21:00)
[2016-11-19 22:00] VITALS: BP_SYST 182; BP_DIAS 74; BP_DIAS 78
[2016-11-19 23:11] VITALS: BP 158/72
[2016-11-20 02:00] VITALS: BP 159/73
[2016-11-20 06:00] VITALS: BP 136/63
[2016-11-20 07:38] LABS: INR 1.57
[2016-11-20 08:41] VITALS: BP 136/63
[2016-11-20] MEDS: FUROSEMIDE 20 MG TAB PO SCH (08:41)
[2016-11-20] MEDS: amLODIPine 5 MG TAB PO SCH (08:41)
[2016-11-20] MEDS: METOPROLOL TARTRATE 100 MG TAB PO SCH (08:41)
[2016-11-20] MEDS: ALLOPURINOL 100 MG TAB PO SCH (08:41)
[2016-11-20] MEDS: OMEPRAZOLE 20 MG CAP PO SCH (08:41)
[2016-11-20] MEDS: CALCITRIOL 0.25 MCG CAP (S0169) PO SCH (08:41)
[2016-11-20] MEDS: HumaLOG INSULIN (NovoLOG) PER UNIT SC SCH ×2 (08:42→12:36)
--- NOTE | 2016-11-20 13:35 | DSES ---
DATE OF ADMISSION: 11/14/2016 DATE OF DISCHARGE: ADDENDUM OF DISCHARGE SUMMARY: The patient has remained medically stable since the time of placing on snf facility (SNF) status on 11/17/2016. His discharge medications are as follows: - allopurinol 100 mg by mouth daily - amlodipine 5 mg by mouth daily - aspirin 81 mg by mouth daily - calcitriol 0.5 mcg by mouth five times weekly - vitamin D 1000 units by mouth daily - donepezil 10 mg by mouth at bedtime - finasteride 5 mg by mouth at bedtime - Lasix 20 mg by mouth daily - Lantus 10 units subcutaneous daily - metoprolol 100 mg by mouth twice a day - nitroglycerin 0.4 mg sublingually as needed chest pain - omeprazole 20 mg by mouth daily - Pravachol 80 mg by mouth daily - Seroquel 25 mg by mouth before bed - Coumadin 5 mg five times weekly, 2.5 mg two times weekly DISCHARGE PLAN: To followup with Dr. Caldwell in one week. Activity should be as tolerated. Diet should be no added salt, consistent carbohydrate.
== END 2016-11-20 14:55 | disposition home health service (06) | DRG 57 ==
LOC: M ED 10:35 → M ED INP 20:22 → M MS5PR 22:58 → M ALC 11-17 19:10
PROVIDERS: ADMIT Internal Medicine; ATTEND Family Medicine
DX: G31.83 Neurocognitive disorder with Lewy bodies (principal); I13.0 Hypertensive heart and chronic kidney disease with heart failure and stage 1 through stage 4 chronic kidney disease, or unspecified chronic kidney disease; I50.32 Chronic diastolic (congestive) heart failure; N39.0 Urinary tract infection, site not specified; N18.4 Chronic kidney disease, stage 4 (severe); R32 Unspecified urinary incontinence; R41.0 Disorientation, unspecified; F02.80 Dementia in other diseases classified elsewhere, unspecified severity, without behavioral disturbance, psychotic disturbance, mood disturbance, and anxiety; I25.10 Atherosclerotic heart disease of native coronary artery without angina pectoris; E11.65 Type 2 diabetes mellitus with hyperglycemia; N40.1 Benign prostatic hyperplasia with lower urinary tract symptoms; M10.9 Gout, unspecified; Z95.0 Presence of cardiac pacemaker; Z79.82 Long term (current) use of aspirin; Z79.4 Long term (current) use of insulin; Z79.01 Long term (current) use of anticoagulants

== ENCOUNTER → 2017-01-07 | Outpatient (CLI) | payer OTHER ==
[~2017-01-07] MED LIST changes: +AMLO5TAB2 PO; +ASPI81TA85 PO; +CALC1CAP31 PO; +COUM1TAB17 PO; +COUM2.5T11 PO; +CVS20TAB PO; +DONETAB6 PO; +INSULANT SC; +LASI20TA PO; +PRAV80TA PO; +SERO1TAB3 PO; +VITA100066 PO
[2017-01-07 19:14] LABS: INR 2.29
== END ==
LOC: M WUC 11:56
PROVIDERS: ATTEND Family Medicine
DX: Z79.01 Long term (current) use of anticoagulants (principal)

== ENCOUNTER → 2017-02-18 | Outpatient (REF) | payer OTHER ==
[2017-02-18 18:25] LABS: INR 2.58
== END ==
LOC: M LAB REF 16:29
PROVIDERS: ATTEND Family Medicine
DX: Z79.01 Long term (current) use of anticoagulants (principal)

== ENCOUNTER → 2017-02-18 | Outpatient (REF) | payer OTHER | LOC: M SFHCADAM 08:35 | PROVIDERS: ATTEND Family Medicine | DX: Z79.01 Long term (current) use of anticoagulants (principal); Z53.9 Procedure and treatment not carried out, unspecified reason ==

== ENCOUNTER → 2017-02-25 | Outpatient (CLI) | payer OTHER, MEDICAID ==
[2017-02-25 12:18] LABS: ALBUMIN 3.4 GM/DL (3.2-5.2); ALBUMIN/GLOBULIN RATIO 0.92 (1.00-1.93); BILIRUBIN,TOTAL 0.4 MG/DL (0.2-1.0); CALCIUM LEVEL 8.9 MG/DL (8.8-10.2); CREATININE FOR GFR 1.67 MG/DL (0.70-1.30); GLOMERULAR FILTRATION RATE 41.8 (>35); POTASSIUM SERUM 4.2 MEQ/L (3.5-5.1); TOTAL PROTEIN 7.1 GM/DL (6.4-8.2)
== END ==
LOC: M WUC 08:39
PROVIDERS: ATTEND Nurse Practitioner Family
DX: E11.40 Type 2 diabetes mellitus with diabetic neuropathy, unspecified (principal)

== ENCOUNTER 2017-06-14 10:50 | Inpatient (IN) | payer MEDICARE, MEDICAID ==
[~2017-06-14] VITALS: Ht 172.7 cm; Wt 72.7 kg
[~2017-06-14 10:50] MED LIST changes: -COUM2.5T11 PO; +COUM2.5T17 PO; +METO100T5 PO
[2017-06-14] MEDS ORDERED: RISP1TAB3 PO (11:15)
[2017-06-14] MEDS ORDERED: NS 1,000 ML IV SCH ×2 (11:40→17:00)
[2017-06-14 12:07] LABS: BASO % 0.4 % (0.0-1.0); EOS # 0.5 K/mm3 (0.0-0.50); LARGE UNSTAINED CELL # 0.1 K/mm3 (0.0-0.4); LARGE UNSTAINED CELL % 1.8 % (0.0-4.0); LYMPH # 1.4 K/mm3 (1.5-4.5); LYMPH % 16.1 % (24.0-44.0); MEAN CORPUSCULAR HEMOGLOBIN 29.7 pg (27.0-33.0); MEAN CORPUSCULAR HGB CONC 32.5 g/dl (32.0-36.5); MEAN CORPUSCULAR VOLUME 91.6 fl (80.0-96.0); MONO # 0.5 K/mm3 (0.0-0.8); MONO % 5.9 % (0.0-5.0); NEUTROPHILS # 5.2 K/mm3 (1.8-7.7); NEUTROPHILS % 68.9 % (36.0-66.0); PLATELET COUNT, AUTOMATED 193 k/mm3 (150-450); RED CELL DISTRIBUTION WIDTH 14.5 % (11.5-14.5); WHITE BLOOD COUNT 7.6 K/mm3 (4.0-10.0)
[2017-06-14 12:12] LABS: ABG BASE EXCESS 0.6 (-2.0-2.0); ABG HCO3 25.3 MEQ/L (22.0-26.0); ABG PARTIAL PRESSURE CO2 40.7 mmHg (35.0-45.0); ABG PARTIAL PRESSURE O2 116.4 mmHg (75.0-100.0); ABG STANDARD HCO3 25.1 MEQ/L (22.0-26.0); ABG TOTAL CO2 26.5 MEQ/L (23.0-31.0); ABG pH (ARTERIAL) 7.411 UNITS (7.350-7.450)
[2017-06-14 12:18] LABS: ALBUMIN 3.2 GM/DL (3.2-5.2); ALBUMIN/GLOBULIN RATIO 0.82 (1.00-1.93); ALKALINE PHOSPHATASE 72 U/L (45-117); ALT/SGPT 19 U/L (12-78); ANION GAP 10 MEQ/L (8-16); AST/SGOT 16 U/L (15-37); BILIRUBIN,DIRECT 0.1 MG/DL (0.0-0.2); BILIRUBIN,TOTAL 0.4 MG/DL (0.2-1.0); BLOOD UREA NITROGEN 46 MG/DL (7-18); CALCIUM LEVEL 8.5 MG/DL (8.8-10.2); CARBON DIOXIDE LEVEL 30 MEQ/L (21-32); CHLORIDE LEVEL 103 MEQ/L (98-107); CREATININE FOR GFR 1.86 MG/DL (0.70-1.30); GLOMERULAR FILTRATION RATE 36.9 (>35); GLUCOSE, FASTING 264 MG/DL (83-110); POTASSIUM SERUM 4.2 MEQ/L (3.5-5.1); SODIUM LEVEL 143 MEQ/L (136-145); TOTAL PROTEIN 7.1 GM/DL (6.4-8.2)
[2017-06-14 12:20] LABS: OSMOLALITY SERUM 313 MOSM/KG (280-301)
--- NOTE | 2017-06-14 13:25 | REP ---
Chest one-view HISTORY: Altered mental status Comparison: 11/14/2016 The lungs are clear. The heart is normal in size. The pulmonary vasculature is normal in appearance. A cardiac pacemaker is present. Impression: No acute disease. Signed by Jeovanny Waldron MD 06/14/2017 01:18 P
--- NOTE | 2017-06-14 15:04 | REP ---
CT HEAD WITHOUT CONTRAST: HISTORY: Altered mental status. Areas of decreased attenuation are present in the periventricular and subcortical white matter. This represents small vessel ischemic disease. There is no intraparenchymal hemorrhage, mass or midline shift. The ventricular system and cortical sulci are dilated consistent with moderate volume loss. There is no extracerebral collection. The visualized sinuses are clear. IMPRESSION: 1. Small vessel ischemic disease. 2. Moderate volume loss. Signed by Jeovanny Waldron MD 06/14/2017 03:16 P
[2017-06-14] MEDS ORDERED: LASI40TA PO (15:14)
[2017-06-14] MEDS ORDERED: TYLE325T5 PO (15:16)
[2017-06-14] MEDS ORDERED: CIPR0.3S OS (15:16)
[2017-06-14] MEDS ORDERED: ONDANSETRON 4MG/2ML VIAL (J2405) IV PRN (16:30)
[2017-06-14] MEDS ORDERED: ACETAMINOPHEN TAB 650MG DOSE (2X325MG) PO PRN (16:30)
[2017-06-14] MEDS ORDERED: DEXTROSE 50% 50 ML SYRINGE IV PRN (16:45)
[2017-06-14] MEDS ORDERED: GLUCAGON FOR INJ 1 MG VIAL (J1610) SC PRN (16:45)
[2017-06-14] MEDS ORDERED: GLUCOSE 4 GM CHEW TABLET PO PRN (16:45)
--- NOTE | 2017-06-14 17:00 | HPE ---
DATE OF ADMISSION: 06/14/2017 This is a patient of Dr. Andrey Caldwell and Dr. Curt Hicks. Chief complaint was: "I was unable to get him up on his feet." This is an 86-year-old with multiple medical comorbidities who has been experiencing declining levels of function at home, acutely worse over the last 2 days. The patient's and daughter were unable to get him up on his feet, could not get him moving. He is not complaining of any particular pain, chest pain, shortness of breath. A frequent complaint is that he has to urinate and that he has difficulty urinating. Apparently, he has also become more incontinent of bowel and bladder. He was brought to the emergency department for evaluation and was found to be in an element of acute renal failure and I was called for admission. Past medical history is mainly obtained from the Family Medicine office chart, such as it is from the [employer] system. Past medical history is notable for gout, hypertension, hypertensive heart disease, left ventricular diastolic dysfunction, chronic atrial fibrillation, coronary artery disease status post coronary artery bypass graft (CABG), status post stent, Frost's esophagus, type 2 diabetes, peripheral arterial disease, chronic kidney disease stage III, benign prostatic hypertrophy, melanoma for which he used to see Dr. Tuttle, diabetic neuropathy of the feet, renal artery stenosis status post stenting, hypercholesterolemia, atrioventricular (AV) block with pacemaker, history of Clostridium (C) difficile colitis in 1997, suspected Lewy body dementia. ALLERGIES: He has listed allergies to ENALAPRIL, GATIFLOXACIN, QUETIAPINE, SIMVASTATIN, SULFA DRUGS. Surgical history is notable for a mitral valve repair, pacemaker placement, bilateral renal stents, cardiac catheterization, CABG, colonoscopy. His family history is notable for a father who is , a mother, who as of 03/04/2017, was alive according to the medical record. Socially, he is a former smoker, he has not had a drink in the past year. Review of systems is not reasonably obtainable for this patient. Medications at home are listed as: - Tylenol - vitamin D - Lasix - Lantus - sublingual nitroglycerin - Coumadin - allopurinol - Norvasc - aspirin - calcitriol - ciprofloxacin ophthalmic drops - donepezil - finasteride - metoprolol - omeprazole - pravastatin - Risperdal Sodium is 143, potassium 4.2, chloride 103, bicarbonate 30, BUN 46, creatinine 1.86, which is approximately 0.2 to 0.3 higher than his baseline, osmolality is 3.13, there is no anion gap, lactic acid is 2.12, calcium 8.5. CK and troponin is negative. TSH 2.04. Hemoglobin 12.6, at his baseline. Blood gas is 7.41, 40, 116, bicarbonate 25. Coagulations are pending. Urinalysis is remarkably unremarkable. Head CT is unremarkable. Chest x-ray is unremarkable. My assessment is as follows: This is an 86-year-old with dehydration and early acute renal failure and metabolic encephalopathy. Will be admitted for a two midnight hospital stay to the family medicine service. Plan will be as follows: 1. Dehydration/acute renal failure. The patient will receive IV fluid. Will withhold his diuretics even in the setting of known congestive heart failure. Will monitor his intake and output and weights. Will put hold parameters on his blood pressure medications. He does have a pacemaker, so there will be no rate control holds. 2. The patient has insulin-dependent diabetes and will be placed on insulin sliding scale during his stay. 3. The patient has suspected Lewy body dementia and gout. He does not follow with neurology. May need to adjust his medications based on his declining level of function and mental status. 4. Deep venous thrombosis (DVT) prophylaxis will be Coumadin pending his PT/INR being sent. This should be reevaluated in the morning if labs are not back in a timely fashion this evening.
[2017-06-14 17:30] LABS: INR 2.11
[2017-06-14] MEDS: HumaLOG INSULIN (NovoLOG) PER UNIT SC SCH ×2 (17:30→20:29)
[2017-06-14 17:38] LABS: CALCIUM LEVEL 8.8 MG/DL (8.8-10.2); CREATININE FOR GFR 1.68 MG/DL (0.70-1.30); GLOMERULAR FILTRATION RATE 41.5 (>35)
--- NOTE | 2017-06-14 17:52 | REP ---
CT abdomen pelvis without IV or oral contrast: History: Metabolic encephalopathy. No comparison CT study. Findings: Preliminary broadcast producer view demonstrates that the patient was unable to bring his arms out of the field of view. The low lung bases show some atelectatic change in the right lower lobe adjacent to a small right pleural effusion. There is an accessory splenule. Pacemaker leads are seen in the enlarged right heart. Liver and spleen are otherwise unremarkable. Gallbladder and pancreas are normal in appearance. No adrenal lesion is seen. The kidneys are somewhat atrophic but no hydronephrosis is seen. Prominent vascular calcification is noted diffusely. No retroperitoneal mass or adenopathy is seen. Small and large bowel loops are unremarkable in the abdomen and pelvis. The rectum is distended by relatively low density formed stool. Prostate, seminal vesicles and urinary bladder are unremarkable. There is left colonic diverticulosis but no CT evidence of diverticulitis. No evidence of free air mass or abscess. Impression: Fecal impaction obstipation pattern. Diffuse vascular calcification. Some renal cortical atrophy. Right pleural effusion. Cardiomegaly with pacemaker. Signed by Beau Suh MD 06/15/2017 09:53 A
--- NOTE | 2017-06-14 19:43 | ECGEPIP ---
Stationary ECG Study [facility] - ED Test Date: 2017-06-14 Pat Name: MADHU CLAROS Department: Room: - Gender: M Learning Support Services Director: sb : 1930 Requested By: Lo Mcdaniels Order Number: [id number] Reading MD: Ari Hernandez Measurements Intervals [place] Rate: 69 P: PA: 0 QRS: -76 QRSD: 162 T: 35 QT: 483 QTc: 521 Interpretive Statements ELECTRONIC VENTRICULAR PACEMAKER SIMILAR TO 11/14/16 Electronically Signed On 06-14-2017 19:43:24 EDT by Ari Hernandez
[2017-06-14] MEDS: CIPROFLOXACIN 0.3% OPHTH SOLN 2.5ML OS SCH ×3 (20:00→20:16)
[2017-06-14] MEDS: DONEPEZIL 5 MG TAB PO SCH (20:13)
[2017-06-14] MEDS: PRAVASTATIN 20 MG TAB PO SCH (20:14)
[2017-06-14] MEDS: FINASTERIDE 5 MG TAB PO SCH (20:14)
[2017-06-14] MEDS: ASPIRIN 81 MG ENTERIC TAB PO SCH (20:14)
[2017-06-14] MEDS: risperiDONE 0.5 MG TAB PO SCH (20:14)
[2017-06-14] MEDS: METOPROLOL TART 50 MG TAB PO SCH (20:15)
[2017-06-14] MEDS: HEPARIN SOD (PORCINE) 5000 UNITS/ML VIAL SC SCH (20:16)
[2017-06-14] MEDS: CALCITRIOL 0.25 MCG CAP (S0169) PO SCH (20:29)
[2017-06-14 22:00] VITALS: BP 133/65
[2017-06-14 23:14] LABS: CALCIUM LEVEL 8.8 MG/DL (8.8-10.2); CREATININE FOR GFR 1.71 MG/DL (0.70-1.30); GLOMERULAR FILTRATION RATE 40.7 (>35); POTASSIUM SERUM 3.9 MEQ/L (3.5-5.1)
[2017-06-15] MEDS: CIPROFLOXACIN 0.3% OPHTH SOLN 2.5ML OS SCH ×6 (00:15→21:37)
[2017-06-15 05:28] LABS: MEAN CORPUSCULAR HEMOGLOBIN 30.6 pg (27.0-33.0); MEAN CORPUSCULAR HGB CONC 34.1 g/dl (32.0-36.5); MEAN CORPUSCULAR VOLUME 89.7 fl (80.0-96.0); RED CELL DISTRIBUTION WIDTH 14.1 % (11.5-14.5)
[2017-06-15 05:38] LABS: INR 2.15
[2017-06-15] MEDS: METOPROLOL TART 50 MG TAB PO SCH ×4 (05:48→17:21)
[2017-06-15 05:51] LABS: CALCIUM LEVEL 8.5 MG/DL (8.8-10.2); CREATININE FOR GFR 1.5 MG/DL (0.70-1.30); GLOMERULAR FILTRATION RATE 47.4 (>35); POTASSIUM SERUM 3.7 MEQ/L (3.5-5.1)
[2017-06-15 06:00] VITALS: BP 175/77
[2017-06-15 06:42] VITALS: BP 140/76
[2017-06-15] MEDS: HumaLOG INSULIN (NovoLOG) PER UNIT SC SCH ×4 (09:45→20:40)
[2017-06-15] MEDS: HEPARIN SOD (PORCINE) 5000 UNITS/ML VIAL SC SCH (10:30)
[2017-06-15] MEDS: ALLOPURINOL 100 MG TAB PO SCH (10:31)
[2017-06-15] MEDS: OMEPRAZOLE 20 MG CAP PO SCH (10:31)
[2017-06-15] MEDS: CALCITRIOL 0.25 MCG CAP (S0169) PO SCH (10:31)
[2017-06-15] MEDS: amLODIPine 5 MG TAB PO SCH (10:36)
[2017-06-15 11:55] LABS: CALCIUM LEVEL 8.9 MG/DL (8.8-10.2); CREATININE FOR GFR 1.49 MG/DL (0.70-1.30); GLOMERULAR FILTRATION RATE 47.7 (>35); POTASSIUM SERUM 4.1 MEQ/L (3.5-5.1)
--- NOTE | 2017-06-15 12:06 | IPNPDOC ---
Subjective Date Seen The patient was seen on 06/15/17. Subjective Chief Complaint/HPI The patient is a 86-year-old male admitted with a reason for visit of Ej, Metabollic Encephalopathy. Events since last encounter No complaints Constitutional: Denies: Chills, Fever Pulmonary: Denies: Dyspnea, Cough Cardiovascular: Denies: Chest Pain Gastrointestinal: Denies: Nausea, Vomiting, Abdominal Pain, Diarrhea, Constipation Objective Physical Examination General Exam: Positive: Alert, No Acute Distress, Other (pleaasantly confused) Chest Exam: Positive: Clear to auscultation, Normal air movement Heart Exam: Positive: Rate Normal, Regular Rhythm, Negative: Murmurs Abdomen Exam: Positive: Normal bowel sounds, Soft Extremity Exam: Negative: Edema Skin Exam: Positive: Other skin issue (dry - poor turgor) Assessment /Plan Problems (1) Dementia Status: Chronic Response to Treatment: Stable Problem Text: moderate-severe a acute delirium, favoring DLB 06/15 give extra risperidone 0.25 now in addition to 0.5 qhs HD continues HD donepezil 10 qhs (2) Acute on chronic renal insufficiency Status: Acute Response to Treatment: Improving Problem Text: 06/15 1.5 s/p IVF baseline cr 1.7 (3) Diabetes Status: Chronic Response to Treatment: Stable Problem Text: Continue SSI Restart low dose Lantus - normally on 10 units daily at home (4) CAD (coronary artery disease) Status: Chronic (5) Chronic atrial fibrillation (6) Diastolic CHF Status: Chronic Response to Treatment: Stable Problem Text: Rate controlled on lopressor- Coumadin theraputic - continue Coumadin at usual HD - 5 mg M-F, 2.5 mg Sat/Sun (7) Ulcer of toe of left foot Status: Chronic Response to Treatment: Stable Problem Text: ulcer on tip of left great toe and peronichea - followed by Dr. Stewart as outpatient Not much better per I will order Bactroban and foam dressing and wound care team to assess Plan/VTE VTE Prophylaxis Ordered?: Yes (on chronic coumadin - STOP HEPARIN SQ) Plan Therapy: PT Disposition PFS involved - may need placement VS, I&O, 24H, Fishbone Vital Signs/I&O Vital Signs Date Time Temp Pulse Resp B/P (MAP) Pulse Ox O2 Delivery O2 Flow Rate FiO2 06/15/17 10:36 69 152/67 06/15/17 06:00 96.9 16 97 Room Air I&O- Last 24 Hours up to 6 AM 06/15/17 05:59 Intake Total 1360 ml Output Total 225 ml Balance 1135 ml Laboratory Data 24H LABS Laboratory Tests 2 06/14/17 11:55: Blood Gas Bicarbonate Standard 25.1, Arterial Blood pH 7.411, Arterial Blood Partial Pressure CO2 40.7, Arterial Blood Partial Pressure O2 116.4H, Arterial Blood Total CO2 26.5, Arterial Blood HCO3 25.3, Arterial Blood Base Excess 0.6, Arterial Blood Oxygen Saturation 98.4 06/14/17 13:02: Urine Appearance CLEAR, Urine Color YELLOW, Urine pH 5.0, Urine Specific [place] 1.016, Urine Protein 1+H, Urine Glucose (UA) 2+H, Urine Ketones NEGATIVE , Urine Urobilinogen 0.2, Urine Bilirubin NEGATIVE, Urine Leukocyte Esterase NEGATIVE, Urine Blood NEGATIVE, Urine Nitrite NEGATIVE, Urine WBC (Auto) 1, Urine RBC (Auto) 4H, Urine Hyaline Casts (Auto) 0, Urine Bacteria (Auto) NEGATIVE, Urine Squamous Epithelial Cells 0, Urine Mucus (Auto) SMALL, Urine Sperm (Auto) 06/14/17 17:08: Prothrombin Time 24.4H, Prothromb Time International Ratio 2.11, Activated Partial Thromboplast Time 45.1H, Anion Gap 8, Glomerular Filtration Rate 41.5, Lactic Acid Followup at 4 Hours 1.3, Blood Urea Nitrogen 41H, Creatinine 1.68H, Sodium Level 144, Potassium Level 4.0, Chloride Level 105, Carbon Dioxide Level 31, Calcium Level 8.8 06/14/17 18:50: Bedside Glucose (Misc Panel) 210H 06/14/17 20:03: Bedside Glucose (Misc Panel) 255H 06/14/17 22:44: Anion Gap 9, Glomerular Filtration Rate 40.7, Blood Urea Nitrogen 41H, Creatinine 1.71H, Sodium Level 141, Potassium Level 3.9, Chloride Level 105, Carbon Dioxide Level 27, Calcium Level 8.8 06/15/17 05:18: Anion Gap 6L, Glomerular Filtration Rate 47.4, Blood Urea Nitrogen 37H, Creatinine 1.50H, Sodium Level 140, Potassium Level 3.7, Chloride Level 105, Carbon Dioxide Level 29, Calcium Level 8.5L, Prothrombin Time 24.8H, Prothromb Time International Ratio 2.15 06/15/17 11:01: CBC/BMP Laboratory Tests 06/14/17 17:08 Calcium Level 8.8 06/14/17 22:44 Calcium Level 8.8 06/15/17 05:18 Calcium Level 8.5 L, Red Blood Count 3.98 L, Mean Corpuscular Volume 89.7, Mean Corpuscular Hemoglobin 30.6, Mean Corpuscular Hemoglobin Concent 34.1, Red Cell Distribution Width 14.1 Microbiology Microbiology 06/14/17 Blood Culture, Received Pending 06/14/17 Blood Culture, Received Pending 06/14/17 Urine Culture - Final, Complete SKYLER BANEGAS PA-C Jun 15, 2017 12:06 Brando Monzon M.D. Jun 15, 2017 16:22
[2017-06-15] MEDS: MIRALAX *UNIT DOSE* 17GM PACKET PO SCH (12:47)
[2017-06-15] MEDS: DOCUSATE SODIUM 100 MG CAP PO SCH ×2 (12:48→21:36)
[2017-06-15 14:00] VITALS: BP 128/61
[2017-06-15] MEDS: MUPIROCIN 2% OINT 22 GM TUBE TOP SCH (14:06)
[2017-06-15] MEDS ORDERED: risperiDONE 0.25 MG TAB PO ONE (16:30)
[2017-06-15 16:48] LABS: CALCIUM LEVEL 9.1 MG/DL (8.8-10.2); CREATININE FOR GFR 1.68 MG/DL (0.70-1.30); GLOMERULAR FILTRATION RATE 41.5 (>35); POTASSIUM SERUM 4.2 MEQ/L (3.5-5.1)
[2017-06-15] MEDS ORDERED: WARFARIN SOD 5 MG TAB PO SCH (17:00)
[2017-06-15] MEDS ORDERED: LEVEMIR (INSULIN DETEMIR) 1 UNITS/0.01ML SC SCH (21:00)
[2017-06-15] MEDS: FINASTERIDE 5 MG TAB PO SCH (21:36)
[2017-06-15] MEDS: risperiDONE 0.5 MG TAB PO SCH (21:36)
[2017-06-15] MEDS: ASPIRIN 81 MG ENTERIC TAB PO SCH (21:36)
[2017-06-15] MEDS: PRAVASTATIN 20 MG TAB PO SCH (21:37)
[2017-06-15] MEDS: DONEPEZIL 5 MG TAB PO SCH (21:37)
[2017-06-15 22:00] VITALS: BP 156/62
[2017-06-16] MEDS: CIPROFLOXACIN 0.3% OPHTH SOLN 2.5ML OS SCH ×3 (00:20→10:03)
[2017-06-16] MEDS: METOPROLOL TART 50 MG TAB PO SCH ×5 (00:21→23:24)
[2017-06-16 06:00] VITALS: BP 168/70
[2017-06-16 06:18] LABS: MEAN CORPUSCULAR HEMOGLOBIN 29.7 pg (27.0-33.0); MEAN CORPUSCULAR HGB CONC 32.3 g/dl (32.0-36.5); MEAN CORPUSCULAR VOLUME 91.9 fl (80.0-96.0); RED CELL DISTRIBUTION WIDTH 14.6 % (11.5-14.5)
[2017-06-16 06:28] LABS: INR 1.83
[2017-06-16 06:34] LABS: CALCIUM LEVEL 9.7 MG/DL (8.8-10.2); CREATININE FOR GFR 1.47 MG/DL (0.70-1.30); GLOMERULAR FILTRATION RATE 48.5 (>35); POTASSIUM SERUM 4.2 MEQ/L (3.5-5.1)
[2017-06-16] MEDS: HumaLOG INSULIN (NovoLOG) PER UNIT SC SCH (07:30)
[2017-06-16] MEDS: MUPIROCIN 2% OINT 22 GM TUBE TOP SCH (07:37)
[2017-06-16] MEDS: DOCUSATE SODIUM 100 MG CAP PO SCH ×2 (10:02→20:21)
[2017-06-16] MEDS: CALCITRIOL 0.25 MCG CAP (S0169) PO SCH (10:02)
[2017-06-16] MEDS: OMEPRAZOLE 20 MG CAP PO SCH (10:02)
[2017-06-16] MEDS: ALLOPURINOL 100 MG TAB PO SCH (10:02)
[2017-06-16] MEDS: MIRALAX *UNIT DOSE* 17GM PACKET PO SCH (10:03)
[2017-06-16] MEDS: amLODIPine 5 MG TAB PO SCH (10:03)
--- NOTE | 2017-06-16 11:12 | IPNPDOC ---
Subjective Date Seen The patient was seen on 06/16/17. Subjective Chief Complaint/HPI The patient is a 86-year-old male admitted with a reason for visit of Ej, Metabollic Encephalopathy. Events since last encounter No new issues per nursing. Constitutional: Denies: Chills, Fever Pulmonary: Denies: Dyspnea Cardiovascular: Denies: Chest Pain, Palpitations Gastrointestinal: Denies: Nausea, Vomiting, Abdominal Pain, Diarrhea, Constipation Objective Physical Examination General Exam: Positive: Alert, No Acute Distress, Other (pleaasantly confused) Chest Exam: Positive: Clear to auscultation, Normal air movement Heart Exam: Positive: Rate Normal, Regular Rhythm, Negative: Murmurs Abdomen Exam: Positive: Normal bowel sounds, Soft Extremity Exam: Negative: Edema Skin Exam: Positive: Other skin issue (dry - poor turgor) Assessment /Plan Problems (1) Dementia Status: Chronic Response to Treatment: Stable Problem Text: moderate-severe a acute delirium, favoring DLB 06/15 give extra risperidone 0.25 now in addition to 0.5 qhs HD continues HD donepezil 10 qhs (2) Diabetes Status: Chronic Response to Treatment: Stable Problem Text: 06/16 - Blood sugars running low. d/C Levemir and SSI. Monitor blood sugar trend. Avoid hypoglycemia in elderly patioet (3) CAD (coronary artery disease) Status: Chronic Response to Treatment: Stable (4) Chronic atrial fibrillation Status: Chronic Response to Treatment: Stable Problem Text: 06/16 - Rate controlled on lopressor- Coumadin slightly subtherapeutic - GIve 7.5 mg today - (5) Diastolic CHF Status: Chronic Response to Treatment: Stable Problem Text: compensated with diuretics on hold (6) Ulcer of toe of left foot Status: Chronic Response to Treatment: Stable Problem Text: ulcer on tip of left great toe and peronichea - followed by Dr. Stewart as outpatient Not much better per I will order Bactroban and foam dressing and wound care team to assess (7) Chronic kidney disease Status: Chronic Response to Treatment: Improving Plan/VTE VTE Prophylaxis Ordered?: Yes (on chronic coumadin - STOP HEPARIN SQ) Plan Therapy: PT Family Medicine Attending Note: I saw and examined Mr. Paris this afternoon with his and daughter at bedside; I discussed his case with LINDA Mckeon and I agree with her note above. His family is agreeable to placement in a long-term care facility, and he can likely be made ALC status tomorrow. He is sleepy today and his family has noticed that he seems more sleepy than usual today - this may be due to stress from hospitalization vs. receiving extra risperidone yesterday afternoon (total 0.75 mg yesterday). He will receive 0.5 mg of risperidone this evening as scheduled and we will monitor mental status. (KES) Disposition unable to care for patient at home - SNF 06/17 after 3 days acute VS, I&O, 24H, Fishbone Vital Signs/I&O Vital Signs Date Time Temp Pulse Resp B/P (MAP) Pulse Ox O2 Delivery O2 Flow Rate FiO2 06/16/17 10:03 70 160/66 06/16/17 09:00 Room Air 06/16/17 06:00 97.5 17 93 I&O- Last 24 Hours up to 6 AM 06/16/17 06:00 Intake Total 1450 ml Output Total 650 ml Balance 800 ml Laboratory Data 24H LABS Laboratory Tests 2 06/15/17 11:39: Bedside Glucose (Misc Panel) 168H 06/15/17 16:05: Anion Gap 7L, Glomerular Filtration Rate 41.5, Blood Urea Nitrogen 34H, Creatinine 1.68H, Sodium Level 139, Potassium Level 4.2, Chloride Level 105, Carbon Dioxide Level 27, Calcium Level 9.1 06/15/17 17:00: Bedside Glucose (Misc Panel) 179H 06/15/17 19:54: Bedside Glucose (Misc Panel) 171H 06/16/17 05:48: Prothrombin Time 21.7H, Prothromb Time International Ratio 1.83, Anion Gap 5L, Glomerular Filtration Rate 48.5, Blood Urea Nitrogen 31H, Creatinine 1.47H, Sodium Level 141, Potassium Level 4.2, Chloride Level 105, Carbon Dioxide Level 31, Calcium Level 9.7 06/16/17 07:30: Bedside Glucose (Misc Panel) 66L 06/16/17 07:43: Bedside Glucose (Misc Panel) 69L CBC/BMP Laboratory Tests 06/15/17 16:05 Calcium Level 9.1 06/16/17 05:48 Calcium Level 9.7, Red Blood Count 4.15 L, Mean Corpuscular Volume 91.9, Mean Corpuscular Hemoglobin 29.7, Mean Corpuscular Hemoglobin Concent 32.3, Red Cell Distribution Width 14.6 H Microbiology Microbiology 06/14/17 Blood Culture - Preliminary, Resulted No growth after 24 hours . All specim... 06/14/17 Blood Culture - Preliminary, Resulted No growth after 24 hours . All specim... 06/14/17 Urine Culture - Final, Complete SKYLER BANEGAS PA-C Jun 16, 2017 11:12 MIRACLE LAZARO MD Jun 16, 2017 13:51
[2017-06-16] MEDS ORDERED: WARFARIN SOD 7.5 MG TAB PO ONE (17:00)
[2017-06-16] MEDS: PRAVASTATIN 20 MG TAB PO SCH (20:20)
[2017-06-16] MEDS: ASPIRIN 81 MG ENTERIC TAB PO SCH (20:21)
[2017-06-16] MEDS: DONEPEZIL 5 MG TAB PO SCH (20:21)
[2017-06-16] MEDS: FINASTERIDE 5 MG TAB PO SCH (20:21)
[2017-06-16] MEDS: risperiDONE 0.5 MG TAB PO SCH (20:21)
[2017-06-16 22:00] VITALS: BP 161/69
[2017-06-17] MEDS: METOPROLOL TART 50 MG TAB PO SCH ×3 (05:57→17:27)
[2017-06-17 06:00] VITALS: BP 154/71
[2017-06-17 06:17] LABS: MEAN CORPUSCULAR HEMOGLOBIN 30.6 pg (27.0-33.0); MEAN CORPUSCULAR HGB CONC 34.1 g/dl (32.0-36.5); MEAN CORPUSCULAR VOLUME 89.7 fl (80.0-96.0); RED CELL DISTRIBUTION WIDTH 14.6 % (11.5-14.5); WHITE BLOOD COUNT 6.6 K/mm3 (4.0-10.0)
[2017-06-17 06:23] LABS: INR 1.89
[2017-06-17] MEDS: ALLOPURINOL 100 MG TAB PO SCH (08:56)
[2017-06-17] MEDS: OMEPRAZOLE 20 MG CAP PO SCH (08:56)
[2017-06-17] MEDS: DOCUSATE SODIUM 100 MG CAP PO SCH ×2 (08:57→21:00)
[2017-06-17] MEDS: CALCITRIOL 0.25 MCG CAP (S0169) PO SCH (08:57)
[2017-06-17] MEDS: amLODIPine 5 MG TAB PO SCH (08:57)
[2017-06-17] MEDS: MUPIROCIN 2% OINT 22 GM TUBE TOP SCH (08:58)
[2017-06-17] MEDS: MIRALAX *UNIT DOSE* 17GM PACKET PO SCH (08:58)
[2017-06-17 14:00] VITALS: BP 148/73
[2017-06-17] MEDS ORDERED: risperiDONE 0.25 MG TAB PO SCH (14:00)
[2017-06-17] MEDS ORDERED: WARFARIN SOD 5 MG TAB PO ONE (17:00)
[2017-06-17] MEDS: DONEPEZIL 5 MG TAB PO SCH (21:00)
[2017-06-17] MEDS: ASPIRIN 81 MG ENTERIC TAB PO SCH (21:00)
[2017-06-17] MEDS: FINASTERIDE 5 MG TAB PO SCH (21:00)
[2017-06-17] MEDS: risperiDONE 0.5 MG TAB PO SCH (21:00)
[2017-06-17] MEDS: PRAVASTATIN 20 MG TAB PO SCH (21:00)
[2017-06-17 22:00] VITALS: BP 124/62
[2017-06-18] MEDS: METOPROLOL TART 50 MG TAB PO SCH ×3 (00:01→12:21)
[2017-06-18 06:00] VITALS: BP 146/64
[2017-06-18] MEDS: amLODIPine 5 MG TAB PO SCH (10:05)
[2017-06-18] MEDS: ALLOPURINOL 100 MG TAB PO SCH (10:05)
[2017-06-18] MEDS: CALCITRIOL 0.25 MCG CAP (S0169) PO SCH (10:05)
[2017-06-18] MEDS: DOCUSATE SODIUM 100 MG CAP PO SCH (10:05)
[2017-06-18] MEDS: MIRALAX *UNIT DOSE* 17GM PACKET PO SCH (10:09)
[2017-06-18] MEDS: MUPIROCIN 2% OINT 22 GM TUBE TOP SCH (10:10)
[2017-06-18] MEDS: OMEPRAZOLE 20 MG CAP PO SCH (10:10)
[2017-06-18] MEDS ORDERED: LOPR1TAB6 PO (10:17)
[2017-06-18] MEDS ORDERED: MUPI2OI TOP (10:17)
[2017-06-18] MEDS ORDERED: INSULANT SC (10:17)
[2017-06-18] MEDS ORDERED: PEG1POW PO (10:17)
[2017-06-18] MEDS ORDERED: RISP0.2516 PO (10:17)
[2017-06-18] MEDS ORDERED: COUM1TAB17 PO (10:17)
[2017-06-18 12:21] VITALS: BP 144/70
--- NOTE | 2017-06-18 13:29 | DSES ---
DATE OF ADMISSION: 06/14/2017 DATE OF SHELTER FACILITY (SNF): 06/17/2017 DATE OF DISCHARGE: 06/18/2017 BRIEF HISTORY AND PHYSICAL: Patient is an 86-year-old patient of Dr. Singer who has advanced progressively worsening dementia, whose brought him in because he was unable to get up on his feet and she could not manage him at home. Usually he is able to get up and ambulate, but he was not able to get up on the date of the admission. His past medical history is significant for chronic kidney disease, followed by Dr. Hicks, stage III-IV, advanced dementia, gout, hypertension with hypertensive heart disease, left ventricular diastolic dysfunction, chronic atrial fibrillation on chronic anticoagulation with Coumadin, coronary artery disease, status post coronary artery bypass graft and stent, Frost's esophagus, type 2 diabetes mellitus, peripheral artery disease, chronic kidney disease stage II, BPH, history of melanoma, diabetic neuropathy, renal artery stenosis, status post stenting, hypercholesterolemia, status post pacemaker for atrioventricular (AV) block, history of Clostridium (C) difficile colitis in 1997, suspected Lewy body dementia, and a left great toe ulcer as well as heel ulcer that is followed by Dr. Jeovany Pabon. PERTINENT LABORATORIES ON ADMISSION: White count 7.6, hemoglobin 12.6, platelets 193,000. Sodium 141, potassium 3.9, BUN 41, creatinine 1.71, which is up from his baseline of 1.5. INR was 2.11. Chest x-ray showed no acute disease. CT of the abdomen and pelvis showed fecal impaction and obstipation pattern, diffuse vascular calcifications, some renal cortical atrophy, right pleural effusion and cardiomegaly with a pacemaker. CT of the head showed small vessel ischemic disease and moderate volume loss. HOSPITAL COURSE: 1. The patient was admitted for dehydration with increased blood urea nitrogen (BUN) and creatinine compared with baseline and inability to ambulate due to dehydration. He was given intravenous (IV) fluids. His diuretics were held. His renal function has returned to baseline with a BUN of 31, creatinine 1.47 at the time of this SNF summary. His diuretics remain on hold and he continues to appear compensated with at this time and will likely need to be restarted at some point, but for now they will be hold. He has no peripheral edema or signs of congestive heart failure at the time of this summary. 2. Left great toe ulcer and heel ulcer disease. These were present on admission and he has been following with Dr. Jeovany mcwilliams. I have spoken with him today and he will see the patient in consultation hopefully today prior to his transfer to the halfway. Otherwise, he will arrange for him to be transported to his office to further evaluate the toe ulcer. In the meantime, he is getting foam dressings to this and he is not on antibiotics. There is no surrounding erythema. There is scant drainage from the toe ulcer. 3. Atrial fibrillation. He is on chronic Coumadin. His INR at the time of this summary is 1.89. I will give him 10 mg of Coumadin today and follow his INR and have daily dosing of his Coumadin based on his INR with a goal of INR between 2-3. 4. Advanced dementia with confusion and agitation. He remains on Aricept and Risperdal. He is fairly stable on these. 5. History of diastolic congestive heart failure. Again, his diuretics are on hold but he remains compensated at this time. 6. Obstipation with fecal impaction per the CT. Bowel care has been ordered, including MiraLAX and Colace. He has had bowel movements in the hospital. Last one was on 06/15/2017. I will order Fleet enema as needed. DISPOSITION: He is stable for SNF status. His medications will be dictated at the time of transfer to the halfway. Diagnoses at this point include: 1. Inability to ambulate due to weakness related to dehydration. 2. Elevated blood urea nitrogen and creatinine compared with baseline. 3. Chronic kidney disease. 4. Chronic diastolic congestive heart failure. 5. Atrial fibrillation. 6. Advanced dementia. 7. Left great toe and heel ulcer, chronic.
--- NOTE | 2017-06-18 15:33 | CR ---
DATE OF CONSULTATION: 06/17/2017 REASON FOR CONSULTATION: Toe wound. HISTORY OF PRESENT ILLNESS: Wilberto Paris is an 86-year-old male known to me. He has been being treated for a hallux ulceration and a heel ulceration. He has been seen in my office a few weeks ago, recently had been admitted to [facility] with altered mental status. He has been taken care of by his , but they have been having increasing challenge in terms of ambulation and function while at home. The plan is to discharge him most likely tomorrow to a nursing facility. Due to mental status, most of the history comes from chart review. PAST MEDICAL HISTORY: Significant for gout, hypertension, left ventricular diastolic dysfunction, chronic atrial fibrillation, coronary artery disease, Frost's esophagus, diabetes, peripheral arterial disease, chronic kidney disease, history of melanoma, renal artery stenosis. PAST SURGICAL HISTORY: Significant for coronary artery bypass graft, renal artery stenting, pacemaker. ALLERGIES: Significant for: 1. ENALAPRIL. 2. OFLOXACIN. 3. QUETIAPINE. 4. SIMVASTATIN. 5. SULFA. REVIEW OF SYSTEMS: Unobtainable. SOCIAL HISTORY: Former smoker. Negative for alcohol use. LABORATORY DATA: Labs are reviewed. White blood cell count 6.6 within normal during the admission. He has been afebrile during the admission. LOWER EXTREMITY EXAMINATION: Left heel wound is noted to the lateral aspect of the heel. No erythema. No necrosis. No malodor. This is improved compared to prior exam. Left hallux is examined. There is bone exposed in the wound from the distal phalanx. There is no surrounding erythema. Skin surrounding it is somewhat macerated. ASSESSMENT: This is an 86-year-old male with lower extremity ulcerations. PLAN: He will be discharged to the nursing facility. Will plan care through there. He should be wearing an offloading heel boot to prevent further pressure ulcerations to his heel. For the hallux wound, I would keep this dry, apply bacitracin, but leave open to air. Present bandages appear to be macerating the skin. He will followup in my office in two weeks.
--- NOTE | 2017-06-19 12:29 | DSES ---
DATE OF ADMISSION: 06/14/2017 DATE OF DISCHARGE: 06/18/2017 ATTENDING PHYSICIAN: Dr. Monzon. This is an addendum to a residential facility (SNF) summary that was dictated on 06/17/2017. The patient is being transferred to [facility]. The only additional changes that have been made since the summary was dictated yesterday include the following: Related to his right heel and great toe wound, Dr. Pabon came and saw the patient here in the hospital and made some recommendations regarding wound care. This particular wound care should be continued upon transfer to the long term, and he can followup with Dr. Pabon in his office. Regarding his diabetes, his blood sugars have started to rise, running in the 200 to 300s. I have restarted a small dose of his Lantus insulin. He was on 14 units a day at home. I have restarted 6 units a day and he will need monitoring of his blood sugars and adjustment of his insulin accordingly. His INR on the date of discharge is 2.0, which is therapeutic. He received 10 units of Coumadin yesterday and 7.5 mg the day before. I have ordered 5 mg daily and he will need monitoring of his Coumadin levels as an outpatient with adjustment of his Coumadin accordingly. DISPOSITION: He is stable for transfer to the nursing. MEDICATIONS: Include: - Lantus insulin 6 units at bedtime - metoprolol 50 mg every 5 hours - mupirocin ointment to the right great toe wound and heel daily - MiraLax daily - Risperdal 0.25 mg at 2 o'clock and 0.5 mg at bedtime - Coumadin 5 mg daily, he will need daily PT/INR to monitor and adjust the dose with a goal of INR of 2 to 3 - Tylenol 325 mg as needed for pain - allopurinol 100 mg daily - amlodipine 5 mg daily - aspirin 81 mg daily - calcitriol 0.5 mcg as directed - vitamin D 1000 International Units at bedtime - donepezil 10 mg at bedtime - finasteride 5 mg at bedtime - nitroglycerin sublingual as needed for angina - pravastatin 80 mg at bedtime DISCHARGE DIAGNOSIS: Unchanged from yesterday's SNF summary.
[2017-06-19] MEDS ORDERED: WARFARIN SOD 2.5 MG TAB PO SCH (17:00)
== END 2017-06-18 12:26 | DRG 641 ==
LOC: M ED 10:50 → M ED INP 16:18 → M MSPAV 18:58
PROVIDERS: ADMIT Internal Medicine; ATTEND Family Medicine
DX: E86.0 Dehydration (principal); I50.32 Chronic diastolic (congestive) heart failure; I13.0 Hypertensive heart and chronic kidney disease with heart failure and stage 1 through stage 4 chronic kidney disease, or unspecified chronic kidney disease; L97.429 Non-pressure chronic ulcer of left heel and midfoot with unspecified severity; N17.9 Acute kidney failure, unspecified; M10.9 Gout, unspecified; I48.2 Chronic atrial fibrillation; I25.10 Atherosclerotic heart disease of native coronary artery without angina pectoris; K22.70 Barrett's esophagus without dysplasia; Z95.5 Presence of coronary angioplasty implant and graft; E11.51 Type 2 diabetes mellitus with diabetic peripheral angiopathy without gangrene; E11.22 Type 2 diabetes mellitus with diabetic chronic kidney disease; N18.3 Chronic kidney disease, stage 3 (moderate); N40.0 Benign prostatic hyperplasia without lower urinary tract symptoms; E11.621 Type 2 diabetes mellitus with foot ulcer; E11.42 Type 2 diabetes mellitus with diabetic polyneuropathy; L97.529 Non-pressure chronic ulcer of other part of left foot with unspecified severity; G31.83 Neurocognitive disorder with Lewy bodies; F02.80 Dementia in other diseases classified elsewhere, unspecified severity, without behavioral disturbance, psychotic disturbance, mood disturbance, and anxiety; E78.00 Pure hypercholesterolemia, unspecified; K56.41 Fecal impaction; Z95.0 Presence of cardiac pacemaker; Z85.820 Personal history of malignant melanoma of skin; Z88.2 Allergy status to sulfonamides; Z88.8 Allergy status to other drugs, medicaments and biological substances; Z88.1 Allergy status to other antibiotic agents; Z87.891 Personal history of nicotine dependence; Z79.4 Long term (current) use of insulin; Z79.01 Long term (current) use of anticoagulants; Z79.899 Other long term (current) drug therapy

== ENCOUNTER 2017-06-20 22:39 | Inpatient (IN) | payer MEDICARE, MEDICAID ==
[~2017-06-20] VITALS: Ht 172.7 cm; Wt 73.1 kg
[~2017-06-20 22:39] MED LIST changes: +CIPR0.3S OS; +LASI40TA PO; +LOPR1TAB6 PO; +MUPI2OI TOP; +PEG1POW PO; +RISP0.2516 PO; +RISP1TAB3 PO; +TYLE325T5 PO
[2017-06-20] MEDS ORDERED: NS 1,000 ML IV SCH (22:53)
[2017-06-20] MEDS ORDERED: PANTOPRAZOLE 40MG INJ (PROTONIX) (C9113) IV ONE (23:15)
[2017-06-20] MEDS ORDERED: ONDANSETRON 4MG/2ML VIAL (J2405) IV ONE (23:15)
--- NOTE | 2017-06-21 | REPUSA ---
CT of the abdomen and pelvis without contrast Clinical statement: nausea, vomiting. Technique: Multiple axial CT images were obtained from the base of the lungs to the floor of the pelv is utilizing 5 mm axial slices without administration of contrast. Coronal and sagittal reconstructio ns were also obtained. Comparison: 06/14/2017. Findings: Chest: There is a small right-sided pleural effusion with right lower lobe atelectasis. Abdomen: The kidneys are normal in size bilaterally. There is no evidence of hydronephrosis or nephro lithiasis. Portal venous gas is noted in the left lobe of the liver. Small amounts of gas are see in vascular structures within the mesentery. The spleen, pancreas, gallbladder and adrenal glands are un remarkable. The aorta demonstrates normal caliber and contour. There is no abdominal lymphadenopathy or ascites. Pelvis: There is new moderate distention of the small bowel. There is no focal site of obstruction. S igmoid diverticulosis is noted, without evidence of diverticulitis. The urinary bladder is within nor mal limits. There is no pelvic lymphadenopathy or ascites. The other pelvic structures appear unremar kable. Bones: There are no suspicious osseous abnormalities seen. There is moderate narrowing of the hip swathi nts bilaterally. There is moderate narrowing of the L1/L2 and L5/S1 disc spaces. Impression: 1. Interval development of portal venous gas, predominantly in the left lobe of the liver. A small am ount of gas is seen within the mesenteric vessels in the left upper quadrant, predominately around th e stomach. No focal inflammatory bowel changes are seen to suggest bowel ischemia at this time howeve r. Correlation with blood test and clinical correlation is recommended. 2. There has been some interval development of distention of small bowel, with moderate amount of flu id noted. No focal site of bowel obstruction is seen. 3. There is no evidence of abdominal or pelvic ascites. 4. Small right-sided pleural effusion and right lower lobe atelectasis is stable. 5. The other CT findings are stable. ER physician was notified of these findings at 11:54 PM on 06/20/2017.
[2017-06-21 00:54] LABS: INR 2.56
[2017-06-21 01:05] LABS: ALBUMIN 3.4 GM/DL (3.2-5.2); ALBUMIN/GLOBULIN RATIO 0.85 (1.00-1.93); ALKALINE PHOSPHATASE 90 U/L (45-117); ALT/SGPT 33 U/L (12-78); AMYLASE 75 U/L (25-115); ANION GAP 9 MEQ/L (8-16); AST/SGOT 28 U/L (15-37); BILIRUBIN,DIRECT 0.2 MG/DL (0.0-0.2); BILIRUBIN,TOTAL 0.6 MG/DL (0.2-1.0); BLOOD UREA NITROGEN 48 MG/DL (7-18); CALCIUM LEVEL 9.3 MG/DL (8.8-10.2); CARBON DIOXIDE LEVEL 30 MEQ/L (21-32); CHLORIDE LEVEL 97 MEQ/L (98-107); CREATININE FOR GFR 2.27 MG/DL (0.70-1.30); GLOMERULAR FILTRATION RATE 29.4 (>35); GLUCOSE, FASTING 442 MG/DL (83-110); MAGNESIUM LEVEL 2.4 MG/DL (1.8-2.4); POTASSIUM SERUM 4.3 MEQ/L (3.5-5.1); SODIUM LEVEL 136 MEQ/L (136-145); TOTAL PROTEIN 7.4 GM/DL (6.4-8.2)
[2017-06-21 01:06] LABS: ADD MANUAL DIFFER YES; DIFF SLIDE NUMBER 83; MEAN CORPUSCULAR HEMOGLOBIN 29.3 pg (27.0-33.0); MEAN CORPUSCULAR HGB CONC 31.9 g/dl (32.0-36.5); MEAN CORPUSCULAR VOLUME 92.1 fl (80.0-96.0); PLATELET COUNT, AUTOMATED 207 k/mm3 (150-450); RED CELL DISTRIBUTION WIDTH 14.9 % (11.5-14.5); WHITE BLOOD COUNT 8.1 K/mm3 (4.0-10.0)
[2017-06-21] MEDS ORDERED: ROCA0.5C PO (01:09)
[2017-06-21] MEDS ORDERED: OMEP20CA3 PO (01:10)
[2017-06-21] MEDS ORDERED: FURO20TA2 PO (01:10)
[2017-06-21] MEDS ORDERED: METO100T5 PO (01:10)
[2017-06-21] MEDS ORDERED: LANTINJ4 SC (01:29)
--- NOTE | 2017-06-21 01:30 | REPUSA ---
CLINICAL HISTORY: Trauma. TECHNIQUE: Multiple axial CT images were obtained through the brain without IV contrast material. COMMENTS: There is normal configuration of sella turcica. There are no intra or extra-axial collections. There is no mass effect or midline shift. There is no evidence of hematoma formation. No hydrocephalus is p resent. The ventricles are symmetrical. No abnormal calcifications are present. There is diffuse age-appropriate cerebellar and cerebral atrophy with proportionally dilated ventricl es and cortical sulci. There are bilateral periventricular and subcortical white matter hypolucencies compatible with mild c hronic microvascular disease. Otherwise, no significant focal abnormalities are seen either in the posterior fossa or supratentoria l compartment. IMPRESSION: 1. Age-appropriate cerebellar and cerebral atrophy. 2. Mild chronic microvascular disease. 3. No evidence of acute intracranial pathology. Thank you for your kind referral of this patient.
[2017-06-21] MEDS ORDERED: WARF-23 PO (01:31)
[2017-06-21] MEDS ORDERED: COUM2.5T17 PO (01:31)
[2017-06-21 01:40] LABS: BANDS 16 % (< 11)
[2017-06-21 01:41] LABS: HYPOCHROMASIA 1+; TOXIC GRANULATION 1+; TOXIC VACUOLATION 1+
[2017-06-21] MEDS ORDERED: HumuLIN R (REGULAR) INSULIN (NovoLIN R) **100U/ML** PER UNIT IV ONE (02:00)
[2017-06-21] MEDS ORDERED: NS 500 ML IV ONE (03:45)
[2017-06-21] MEDS ORDERED: HumaLOG INSULIN (NovoLOG) PER UNIT SC STA (04:56)
[2017-06-21] MEDS ORDERED: GLUCOSE 4 GM CHEW TABLET PO PRN (05:00)
[2017-06-21] MEDS ORDERED: DEXTROSE 50% 50 ML SYRINGE IV PRN (05:00)
[2017-06-21] MEDS ORDERED: PANTOPRAZOLE SODIUM 40 MG in D5W MINI-BAG PLUS 50 ML IV SCH (05:00)
[2017-06-21] MEDS ORDERED: GLUCAGON FOR INJ 1 MG VIAL (J1610) SC PRN (05:00)
[2017-06-21] MEDS ORDERED: MORPHINE 2 MG/ML 1ML SYRINGE IV PRN (05:15)
[2017-06-21] MEDS ORDERED: ONDANSETRON 4MG/2ML VIAL (J2405) IV PRN (05:15)
[2017-06-21] MEDS: NS 1,000 ML IV SCH ×2 (05:24→06:12)
--- NOTE | 2017-06-21 05:40 | ECGEPIP ---
Stationary ECG Study [facility] - ED Test Date: 2017-06-20 Pat Name: MADHU CLAROS Department: Room: - Gender: M Rn Advanced: YostB: 1930 Requested By: JAELYN FLOR Order Number: [id number] Reading MD: Ari Hernandez Measurements Intervals [place] Rate: 69 P: W[place]: 0 QRS: 263 QRSD: 168 T: 87 QT: 486 QTc: 524 Interpretive Statements ELECTRONIC VENTRICULAR PACEMAKER SIMILAR TO 06/14/17 Electronically Signed On 06-21-2017 5:40:00 EDT by Ari Hernandez
[2017-06-21] MEDS ORDERED: HumaLOG INSULIN (NovoLOG) PER UNIT SC SCH (06:00)
[2017-06-21] MEDS ORDERED: PIPERACILLIN/TAZOBACTAM SOD 2.25 GM in D5W MINI-BAG PLUS 50 ML IV SCH (06:00)
[2017-06-21] MEDS ORDERED: metroNIDAZOLE 500 MG in APPROPRIATE DILUENT 1 EA IV SCH (07:00)
--- NOTE | 2017-06-21 07:08 | HPE ---
DATE OF ADMISSION: 06/21/2017 PRIMARY CARE PROVIDER: Dr. Andrey Caldwell MEDICAL RECORDS SUPERVISOR: Dr. Hicks CHIEF COMPLAINT: Coffee ground emesis, abdominal pain. HISTORY OF PRESENT ILLNESS: The patient is an 86-year-old man who was recently discharged on 06/18/2017 to [facility] for advanced dementia and unable to be cared for by his family at home. While there earlier this evening, the patient began having abdominal pain and vomiting coffee grounds. He was brought to the emergency room where he had two further episodes of vomiting coffee grounds before an NG tube was placed. The patient has advanced dementia. He is able to answer basic questions and able to tell me he has pain in his belly, but otherwise he does not cooperative much with the exam or questions and much of the history is obtained from report from the ER providers and review of the chart. PAST MEDICAL HISTORY: 1. Atrial fibrillation, on Coumadin. 2. Insulin dependent type 2 diabetes. 3. Hypertension. 4. Chronic kidney disease Stage III. 5. Gout. 6. Dyslipidemia. 7. Diastolic congestive heart failure. 8. Renal artery stenosis, status post bilateral stents. 9. Coronary artery disease, status post coronary artery bypass graft (CABG) and stents. 10. Frost's esophagus. 11. Peripheral arterial disease. 12. Benign prostatic hypertrophy (BPH). 13. AV block, status post pacer. 14. Ulcer of the right heel and great toe. ALLERGIES: - ENALAPRIL - GATIFLOXACIN - QUETIAPINE - SIMVASTATIN - SULFA DRUGS PAST SURGICAL HISTORY: 1. Mitral valve repair. 2. Pacer placement. 3. CABG. 4. Renal stents. 5. Colonoscopy. MEDICATIONS FROM FACILITY: - Tylenol 350 mg every 4 hours as needed pain - allopurinol 100 mg daily - Norvasc 5 mg daily - aspirin 81 mg at bedtime - calcitriol 0.5 mcg five times a week - vitamin D 1000 units at bedtime - finasteride 5 mg at bedtime - Lasix 20 mg daily - Lantus 14 units at bedtime - Nitrostat 0.4 mg sublingually every 5 minutes as needed chest pain - omeprazole 20 mg daily - pravastatin 80 mg at bedtime - risperidone 1 mg at bedtime - Coumadin 2.5 mg twice a week and 5 mg five times a week - donepezil 10 mg at bedtime - metoprolol tartrate 100 mg by mouth twice a day SOCIAL HISTORY: He is a former smoker. No alcohol or illicit drug use. He is a halfway resident at [facility]. FAMILY HISTORY: Noncontributory. REVIEW OF SYSTEMS: Ten point review of systems obtained to the best which the patient allows without any new or additional problems noted other than what is noted in the history of present illness (HPI). PHYSICAL EXAMINATION: VITAL SIGNS: Temperature 99.6. Pulse 79. Respiratory rate 22. Blood pressure 116/83. Oxygen saturation 98% on room air. GENERAL: He is a frail, elderly, man, obese, laying flat on a stretcher. He is arousable to physical stimuli. He does not appear to be in acute distress. HEENT: He has a NG tube in place draining coffee grounds and has very dry mucous membranes. He is mildly lethargic. He does not cooperate with pain or testing. No elevation in central venous pressure (CVP). CARDIOVASCULAR: S1, S2, irregularly irregular. He is not tachycardiac at this time. RESPIRATORY: Fairly clear, diminished breath sounds at the bases, reduced effort. ABDOMINAL EXAM: Grossly obese. There is tenderness diffusely. He appears distended, although this is my first time examining his belly. EXTREMITIES: There is trace edema bilaterally. His wounds are dressed and the dressings are clean, dry and intact. LABORATORY STUDIES: WBC 8.1, hemoglobin 12.4 and platelet count 207,000 with bands of 16. Chemistry panel with sodium 136, potassium 4.3, chloride 97, bicarbonate 30, BUN 48, creatinine 2.2 up from a baseline of approximately 1.5, glucose elevated at 442, lactic acid 7.7, total creatinine kinase 504, lipase within normal limits. INR 2.5. Blood cultures are drawn and pending. IMAGING: The patient had a chest x-ray which Dr. Valdez has informed me has no abnormalities on his interpretation of it. The patient did have a CT of the abdomen and pelvis which revealed development of portal venous gas, predominantly in the left lobe of the liver, a small amount of gas seen within the mesenteric vessels in the left upper quadrant predominantly around the stomach, no focal inflammatory bowel changes. It seems to suggest bowel ischemia at this time, however, correlation with blood tests and clinical correlation recommended. Some interval development of distention of the small bowel with moderate amount of fluid noted. No focal sign of obstruction. No evidence of abdominal or pelvic ascites. Small right sided pleural effusion, right lower lobe atelectasis stable. The patient did have a CT scan of the head which revealed age appropriate cerebellar and cerebral atrophy. Mild chronic microvascular disease. No evidence of acute intracranial pathology. ASSESSMENT AND PLAN: This is an 86-year-old man with advanced dementia presenting now with vomiting coffee grounds, abdominal pain, elevated lactic acid, air in his mesenteric vessels and portal veins. PROBLEMS: 1. Abdominal pain. My initial suspicion is for ischemic gut. The patient has a long history of vascular pathology, including obstructions in his coronaries, bilateral renal arteries and peripheral arterial disease as well. He is diabetic. He has advanced age and dyslipidemia. He presents now with a lactic acid elevated out of proportion as he is not hypotensive as well as elevated CKs, abdominal pain and vomiting coffee grounds and CAT scan findings concerning for ischemic gut. I did discuss the case with Dr. Palomares who agrees. Given his multiple comorbidities, he is not a good surgical candidate. He is a DO NOT RESUSCITATE (DNR) and DO NOT INTUBATE (DNI) with limited medical interventions and medical orders for life-sustaining treatment (MOLST) form completed by his . I did call and speak with his , Regla Paris, at this time and did inform her that right now his prognosis is quite poor and I do not expect him to survive. We agreed to give him a 12-24 hour trial period of antibiotics, IV fluids and measures to control bleeding, including transfusion of fresh frozen plasma (FFP) and IV Protonix. However, should his clinical status decline or he failed to respond, there will be no escalation of care and his Regla Paris will elect for comfort measures only. I did have a lengthy discussion answering all of her questions as to what comfort measures is. At this time, he will be admitted to the progressive care unit with the above mentioned plan. The patient's will present bedside early this morning. 2. Atrial fibrillation. We are holding his warfarin and providing him with FFP. Will continue with metoprolol with holding parameters. 3. Acute kidney injury, likely related to his ongoing sepsis syndrome and ischemic bowel. Will provide him with aggressive fluid resuscitation. 4. Anemia. The patient has fairly significant bandemia, low grade temperatures and abdominal pain with vomiting coffee grounds. We will start him on Flagyl and Zosyn and renally dose the Zosyn to double cover him for abdominal organisms; however, if he were to perforate this certainly would not be enough to treat him adequately. 5. Hyperglycemia. He is not in diabetic ketoacidosis (DKA); however, it is likely his symptoms are secondary to his ongoing process. I will provide him an additional bolus of insulin now. He will be nothing by mouth (n.p.o.) and will have sliding scale every 6 hours. 6. Elevated CKs. I suspect related to ongoing ischemia. Will provide him with continuous IV fluids. 7. Gout. We will hold his by mouth medications. 8. Diastolic congestive heart failure. He does not appear to be hypervolemic at all. In fact, he appears to be quite dry. At this time, we are holding his Lasix and providing him with IV fluids. 9. Coronary artery disease. We will hold his aspirin in the setting of suspected bleeding. We will continue his beta sonido. We are holding his statin while he is n.p.o. He is admitted in the progressive care unit and will trend his cardiac enzymes and his CKs. 10. Frost's esophagus. He will be on an IV Protonix drip for the time being. 11. Hypertension. His blood pressure is dropping. We are holding his amlodipine and Lasix. 12. BPH. We will hold his finasteride. 13. Dementia. While he is n.p.o. and lethargic we are holding risperidone and donepezil. 14. Deep vein thrombosis (DVT) prophylaxis. Sequentials and thromboembolic deterrent stockings (TEDS). DISPOSITION: The patient is admitted to the progressive care unit. His prognosis is poor with no escalations of care should he fail to improve or decline. His Regla is open to comfort measures only as discussed at length at the time of admission.
[2017-06-21 07:24] VITALS: BP 126/58
--- NOTE | 2017-06-21 07:26 | REP ---
Clinical: Nasogastric tube placement for verification. Technique: Portable supine view of the lower chest/abdomen. Findings: Portable view of the lower chest and upper abdomen demonstrates nasogastric tube extending into the left upper quadrant in satisfactory position. Lung bases demonstrate chronic interstitial changes with suspected superimposed atelectasis and/or mild interstitial edema. No obvious effusion. Visualized cardiac silhouette is within normal limits. Evidence for prior sternotomy and pacemaker noted. Surgical clips in the right upper quadrant identified. Visualized bowel gas pattern is nonspecific. Skeletal structures are grossly intact. Impression: 1. Nasogastric tube in satisfactory position. 2. Chronic bibasilar interstitial changes with possible superimposed scattered atelectasis and/or interstitial edema. Signed by Holger Avila MD 06/21/2017 07:17 A
--- NOTE | 2017-06-21 07:32 | REP ---
Clinical: Vomiting. Comparison: 06/14/2017. Findings: Mediastinum and cardiac silhouette are within normal limits and stable. Evidence for prior sternotomy, CABG, and valve replacement again noted. Surgical clips in the right upper quadrant of the abdomen identified. The lung mehta demonstrate chronic changes without obvious consolidation, definite effusion or pneumothorax. Skeletal structures are stable. Impression: Chronic stable changes. No obvious acute cardiopulmonary process. Signed by Holger Avila MD 06/21/2017 07:24 A
[2017-06-21 08:14] LABS: MEAN CORPUSCULAR HEMOGLOBIN 30.1 pg (27.0-33.0); MEAN CORPUSCULAR HGB CONC 32.7 g/dl (32.0-36.5)
[2017-06-21 08:17] LABS: INR 3.1
[2017-06-21 08:29] LABS: ALBUMIN/GLOBULIN RATIO 0.75 (1.00-1.93); ALKALINE PHOSPHATASE 72 U/L (45-117); ALT/SGPT 26 U/L (12-78); ANION GAP 13 MEQ/L (8-16); AST/SGOT 26 U/L (15-37); BILIRUBIN,TOTAL 0.5 MG/DL (0.2-1.0); BLOOD UREA NITROGEN 57 MG/DL (7-18); CALCIUM LEVEL 8.8 MG/DL (8.8-10.2); CARBON DIOXIDE LEVEL 27 MEQ/L (21-32); CHLORIDE LEVEL 103 MEQ/L (98-107); CREATININE FOR GFR 2.42 MG/DL (0.70-1.30); GLOMERULAR FILTRATION RATE 27.3 (>35); GLUCOSE, FASTING 311 MG/DL (83-110); POTASSIUM SERUM 4.2 MEQ/L (3.5-5.1); SODIUM LEVEL 143 MEQ/L (136-145)
[2017-06-21] MEDS ORDERED: METOPROLOL TARTRATE 100 MG TAB PO SCH (09:00)
--- NOTE | 2017-06-21 09:21 | IPNPDOC ---
Subjective Date Seen The patient was seen on 06/21/17. Subjective Chief Complaint/HPI The patient is a 86-year-old male admitted with a reason for visit of Acute Ischemia Of Small Intestine. Events since last encounter Pt this morning denies pain. His and dgt are at bedside, they have no new concerns. Nursing reports difficulty with secondary access, he was assessed by sawyer cork slabs who were able to get another line in him. General: Reports: ROS Unobtainable (his responses are limited. ) Objective Physical Examination General Exam: Positive: No Acute Distress (responds intermittently to voice, doesn't open his eyes), Negative: Alert ENT Exam: Positive: Mucous membr. moist/pink Chest Exam: Positive: Clear to auscultation, Diminished, Negative: Normal air movement Heart Exam: Positive: Rate Normal Abdomen Exam: Positive: Normal bowel sounds, Soft, Negative: Tenderness Extremity Exam: Negative: Edema Skin Exam: Positive: Lesion (covered on his L foot, toes) Assessment /Plan Problems (1) Acute ischemia of small intestine Status: Acute Response to Treatment: Stable Discussed With: Nurse, Patient, Health Care Proxy, Family with Pt Consent Problem Specific Plan: Monitor Clinically, Repeat Labs Problem Text: 06/21 - Hospitalist spoke with Dr Palomares who does not feel as though pt is surgical candidate. Tmax 99.6, WBC 9, lactic acid down from 7.7 to 4.9 this morning. Cont with Flagyl, Zosyn. Cont with IV protonix, administer FFP to reverse INR of 3.1, was 2.56 on admission. On coumadin for A fib/CAD held d/t GI bleed. Hgb 11.3, down from 12.4. DNR, MOLST in chart, limited medical interventions. Family plans to see how he responds in 12-24 h before considering [facility]. (2) Chronic atrial fibrillation Status: Chronic Response to Treatment: Stable Problem Specific Plan: Monitor Clinically, Repeat Labs Problem Text: ASA, Coumadin held d/t bleeding. Rate controlled with metoprolol. (3) Acute on chronic renal insufficiency Status: Acute Response to Treatment: Worse Problem Specific Plan: Monitor Clinically, Repeat Labs Problem Text: 06/21 Scr 2.42, increased from 2.2 on admission, monitor. Baseline Scr ~1.6. Cont with IVF. (4) Diabetes Status: Chronic Response to Treatment: Stable Discussed With: Patient Problem Specific Plan: Monitor Clinically, Repeat Labs Problem Text: Currently on SSI, may need to add long acting. Monitor FSBS. (5) CAD (coronary artery disease) Status: Chronic Response to Treatment: Stable Problem Specific Plan: Monitor Clinically Problem Text: Anticoags held d/t bleeding, cont with beta sonido. Statin held while NPO. Cardiac enzymes x2 Neg. (6) Dementia Status: Chronic (7) Diastolic CHF Status: Chronic Response to Treatment: Stable Plan/VTE VTE Prophylaxis Ordered?: No VTE Exclusion Pharmacological: Active Bleeding Plan Advance Directives: DNR VS, I&O, 24H, Fishbone Vital Signs/I&O Vital Signs Date Time Temp Pulse Resp B/P (MAP) Pulse Ox O2 Delivery O2 Flow Rate FiO2 06/21/17 07:24 97.9 85 20 126/58 (80) 96 Room Air Laboratory Data 24H LABS Laboratory Tests 2 06/21/17 00:33: Neutrophils 60, Band Neutrophils 16H, Lymphocytes (Manual) 16, Monocytes (Manual ) 8, Toxic Granulation 1+, Toxic Vacuolation 1+, Platelet Estimate NORMAL, Hypochromasia 1+, Prothrombin Time 28.6H, Prothromb Time International Ratio 2.56, Activated Partial Thromboplast Time 50.6H, Anion Gap 9, Glomerular Filtration Rate 29.4L, Calcium Level 9.3, Magnesium Level 2.4, Aspartate Amino Transf (AST/SGOT) 28, Alanine Aminotransferase (ALT/SGPT) 33, Alkaline Phosphatase 90, Total Bilirubin 0.6, Direct Bilirubin 0.2, Total Creatine Kinase 504H, Creatine Kinase MB 3.2, Creatine Kinase MB Relative Index 0.63, Troponin I < 0.02, C-Reactive Protein, Quantitative 4.90H, Total Protein 7.4, Albumin 3.4, Albumin/Globulin Ratio 0.85L, Amylase Level 75, Lipase 197 06/21/17 02:02: Bedside Glucose (Misc Panel) 417H 06/21/17 03:17: Bedside Glucose (Misc Panel) 414H 06/21/17 07:42: Prothrombin Time 33.4H, Prothromb Time International Ratio 3.10, Anion Gap 13, Glomerular Filtration Rate 27.3L, Calcium Level 8.8, Aspartate Amino Transf (AST /SGOT) 26, Alanine Aminotransferase (ALT/SGPT) 26, Alkaline Phosphatase 72, Total Bilirubin 0.5, Total Creatine Kinase 346H, Troponin I < 0.02, Total Protein 7.0, Albumin 3.0L, Albumin/Globulin Ratio 0.75L, Lactic Acid Followup at 4 Hours 4.9*H, Blood Urea Nitrogen 57H, Creatinine 2.42H, Sodium Level 143#, Potassium Level 4.2, Chloride Level 103, Carbon Dioxide Level 27 CBC/BMP Laboratory Tests 06/21/17 00:33 Red Blood Count 4.22 L, Mean Corpuscular Volume 92.1, Mean Corpuscular Hemoglobin 29.3, Mean Corpuscular Hemoglobin Concent 31.9 L, Red Cell Distribution Width 14.9 H 06/21/17 07:42 Red Blood Count 3.76 L, Mean Corpuscular Volume 92.0, Mean Corpuscular Hemoglobin 30.1, Mean Corpuscular Hemoglobin Concent 32.7, Red Cell Distribution Width 15.0 H, Calcium Level 8.8, Aspartate Amino Transf (AST/SGOT) 26, Alanine Aminotransferase (ALT/SGPT) 26, Total Creatine Kinase 346 H, Alkaline Phosphatase 72, Total Bilirubin 0.5, Total Protein 7.0, Albumin 3.0 L Microbiology Microbiology 06/20/17 Blood Culture, Received Pending 06/20/17 Blood Culture, Received Pending LEÓN BAUTISTA PA-C Jun 21, 2017 09:21
[2017-06-21 11:55] VITALS: BP 115/56
[2017-06-21] MEDS ORDERED: EPIDURAL/PCA KEYS XX PRN (12:00)
--- NOTE | 2017-06-21 12:09 | IPN ---
DATE: 06/21/2017 I spoke with Wilberto's , Regla at length today. After reviewing his recent clinical course, he has gas in his biliary system suggesting mesenteric ischemia/infarction. His lactic acid is down but is still elevated and he looks quite ill. On examination, he has a very tender distended abdomen, still has blood coming from nasogastric suctioning. After discussion with Regla, she is requesting and I agree with the move towards comfort measures. His prognosis is grim and his quality of life prior to this catastrophic event was declining due to advancing dementia. He is not a candidate for aggressive intervention. Transfer the patient to the floor on comfort measures. See comfort measure orders.
[2017-06-21] MEDS: MORPHINE SULF IN 0.9% NACL 100 MG in APPROPRIATE DILUENT 1 EA IV SCH ×2 (12:10)
[2017-06-21] MEDS: LORazepam 2 MG/ML VIAL (J2060) IV PRN (18:49)
[2017-06-22] MEDS: LORazepam 2 MG/ML VIAL (J2060) IV PRN ×2 (07:12→09:42)
[2017-06-22] MEDS ORDERED: FENTANYL REMOVAL DOCUMENTATION MISC XX SCH (09:00)
[2017-06-22] MEDS ORDERED: fentaNYL 25 MCG/HR PATCH TOP SCH (09:00)
[2017-06-22] MEDS: MORPHINE SULF IN 0.9% NACL 100 MG in APPROPRIATE DILUENT 1 EA IV SCH ×2 (11:18)
[2017-06-23] MEDS: LORazepam 2 MG/ML VIAL (J2060) IV PRN (00:19)
[2017-06-23] MEDS ORDERED: DEXTROSE 50% 50 ML SYRINGE IV PRN (13:30)
[2017-06-23] MEDS ORDERED: GLUCOSE 4 GM CHEW TABLET PO PRN (13:30)
[2017-06-23] MEDS ORDERED: GLUCAGON FOR INJ 1 MG VIAL (J1610) SC PRN (13:30)
[2017-06-23 14:00] VITALS: BP 152/56
--- NOTE | 2017-06-23 14:13 | IPN ---
DATE: 06/23/2017 Wilberto was seen in [address] [place] [address]. He presented with presumed mesenteric infarction with a bowel obstruction and biliary gas. He was having GI bleeding and looked moribund. Decision was made on 06/21/2017 to convert to comfort measures. Yesterday, he was more alert, still had a distended abdomen. It was very tender, but he wanted to eat and as he was on comfort measures we had him start clear liquids. Today, he looks even better. His abdomen is no longer distended. There are bowel sounds present. He is much less tender. His lungs had decreased breath sounds. Heart regular rate and rhythm. Abdomen is nondistended, mildly tender, with positive bowel sounds. No peripheral edema. 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 I called his Regla and I think that we can pull back from the comfort measures status. His prognosis is still poor and he is not a candidate for surgical intervention, but I think he is likely to survive this episode. I have recommended he restart his Protonix and metoprolol. Will hold off on the warfarin due to the recent GI bleeding. I will repeat his labs in the morning. I am not putting him on antibiotic because there does not look to be signs of sepsis at this point. 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 He is quite comfortable on the Fentanyl patch so I am going to continue that for now. Will discuss this all with Patient and Family Services (PFS).
[2017-06-23] MEDS: PANTOPRAZOLE 40MG TAB (PROTONIX) PO SCH (14:29)
[2017-06-23] MEDS: METOPROLOL TART 50 MG TAB PO SCH ×2 (14:30→20:17)
[2017-06-23] MEDS: ENOXAPARIN 40 MG/0.4 ML SYRINGE (J1650) SC SCH (14:31)
[2017-06-23] MEDS: HumaLOG INSULIN (NovoLOG) PER UNIT SC SCH ×2 (17:49→20:17)
[2017-06-23 20:10] VITALS: BP 123/59
[2017-06-24 06:00] VITALS: BP 150/69
[2017-06-24 06:02] LABS: BASO % 0.3 % (0.0-1.0); EOS # 0.5 K/mm3 (0.0-0.50); EOS % 6.6 % (0.0-3.0); LARGE UNSTAINED CELL # 0.2 K/mm3 (0.0-0.4); LARGE UNSTAINED CELL % 3.1 % (0.0-4.0); LYMPH # 1.7 K/mm3 (1.5-4.5); LYMPH % 19.5 % (24.0-44.0); MEAN CORPUSCULAR HEMOGLOBIN 30.5 pg (27.0-33.0); MEAN CORPUSCULAR HGB CONC 33.7 g/dl (32.0-36.5); MEAN CORPUSCULAR VOLUME 90.6 fl (80.0-96.0); MONO # 0.5 K/mm3 (0.0-0.8); MONO % 6.5 % (0.0-5.0); NEUTROPHILS # 4.9 K/mm3 (1.8-7.7); PLATELET COUNT, AUTOMATED 191 k/mm3 (150-450); RED CELL DISTRIBUTION WIDTH 14.8 % (11.5-14.5); WHITE BLOOD COUNT 7.6 K/mm3 (4.0-10.0)
[2017-06-24 06:29] LABS: ALBUMIN 2.6 GM/DL (3.2-5.2); ALBUMIN/GLOBULIN RATIO 0.7 (1.00-1.93); BILIRUBIN,TOTAL 0.6 MG/DL (0.2-1.0); CALCIUM LEVEL 8.3 MG/DL (8.8-10.2); CREATININE FOR GFR 1.66 MG/DL (0.70-1.30); GLOMERULAR FILTRATION RATE 42.1 (>35); TOTAL PROTEIN 6.3 GM/DL (6.4-8.2)
[2017-06-24] MEDS: HumaLOG INSULIN (NovoLOG) PER UNIT SC SCH ×4 (07:30→20:36)
[2017-06-24] MEDS: PANTOPRAZOLE 40MG TAB (PROTONIX) PO SCH (10:35)
[2017-06-24] MEDS: ENOXAPARIN 40 MG/0.4 ML SYRINGE (J1650) SC SCH (10:35)
[2017-06-24] MEDS: METOPROLOL TART 50 MG TAB PO SCH ×2 (10:35→20:42)
--- NOTE | 2017-06-24 11:07 | IPNPDOC ---
Subjective Date Seen The patient was seen on 06/24/17. Subjective Chief Complaint/HPI The patient is a 86-year-old male admitted with a reason for visit of Acute Ischemia Of Small Intestine. Events since last encounter Per nursing - patient is tolerating regular diet today without c/o abd pain. No BM since admission Constitutional: Denies: Chills, Fever Pulmonary: Denies: Dyspnea, Cough Cardiovascular: Denies: Chest Pain, Palpitations Gastrointestinal: Reports: Constipation, Denies: Nausea, Vomiting, Abdominal Pain, Diarrhea Objective Physical Examination General Exam: Positive: Alert (awake, alert. confused), No Acute Distress ENT Exam: Positive: Mucous membr. moist/pink Chest Exam: Positive: Clear to auscultation, Normal air movement Heart Exam: Positive: Rate Normal Abdomen Exam: Positive: Normal bowel sounds, Soft, Negative: Tenderness Extremity Exam: Negative: Edema Skin Exam: Positive: Lesion (covered on his L foot, toes) Assessment /Plan Problems (1) Acute ischemia of small intestine Status: Acute Response to Treatment: Stable Discussed With: Nurse, Patient, Health Care Proxy, Family with Pt Consent Problem Specific Plan: Monitor Clinically, Repeat Labs Problem Text: 06/24 - Tolerating regular diet Add bowel care JFW: have met daily with mary grace, including today. Wilberto has made an unexpected recovery. Will restart some meds, address DM, plan back to [facility] 06/21 - Hospitalist spoke with Dr Palomares who does not feel as though pt is surgical candidate. DNR, MOLST in chart, limited medical interventions. (2) Chronic atrial fibrillation Status: Chronic Response to Treatment: Stable Problem Specific Plan: Monitor Clinically, Repeat Labs Problem Text: ASA, Coumadin held d/t bleeding. Rate controlled with metoprolol. (3) Acute on chronic renal insufficiency Status: Acute Response to Treatment: Worse Problem Specific Plan: Monitor Clinically, Repeat Labs Problem Text: 06.24 - Renal function has returned to baseline (4) Diabetes Status: Chronic Response to Treatment: Stable Discussed With: Patient Problem Specific Plan: Monitor Clinically, Repeat Labs Problem Text: Currently on SSI restart low dose Levemir (5) CAD (coronary artery disease) Status: Chronic Response to Treatment: Stable Problem Specific Plan: Monitor Clinically Problem Text: Anticoags held d/t bleeding, cont with beta sonido. restart statin (6) Dementia Status: Chronic (7) Diastolic CHF Status: Chronic Response to Treatment: Stable Problem Text: compensated currently Plan/VTE VTE Prophylaxis Ordered?: Yes (Lovenox) Plan Advance Directives: DNR VS, I&O, 24H, Fishbone Vital Signs/I&O Vital Signs Date Time Temp Pulse Resp B/P (MAP) Pulse Ox O2 Delivery O2 Flow Rate FiO2 06/24/17 10:35 73 150/69 06/24/17 06:00 99.0 16 97 Room Air I&O- Last 24 Hours up to 6 AM 06/24/17 05:59 Intake Total 1040 ml Output Total 0 ml Balance 1040 ml Laboratory Data 24H LABS Laboratory Tests 2 06/23/17 16:32: Bedside Glucose (Misc Panel) 325H 06/23/17 20:09: Bedside Glucose (Misc Panel) 199H 06/24/17 05:51: White Blood Count 7.6, Red Blood Count 3.51L, Hemoglobin 10.7L, Hematocrit 31.8L , Mean Corpuscular Volume 90.6, Mean Corpuscular Hemoglobin 30.5, Mean Corpuscular Hemoglobin Concent 33.7, Red Cell Distribution Width 14.8H, Platelet Count 191, Neutrophils (%) (Auto) 64.0, Lymphocytes (%) (Auto) 19.5L, Monocytes (%) (Auto) 6.5H, Eosinophils (%) (Auto) 6.6H, Basophils (%) (Auto) 0.3 , Neutrophils # (Auto) 4.9, Lymphocytes # (Auto) 1.7, Monocytes # (Auto) 0.5, Eosinophils # (Auto) 0.5, Basophils # (Auto) 0.0, Large Unclassified Cells % 3.1 , Large Unclassified Cells # 0.2, Anion Gap 9, Glomerular Filtration Rate 42.1, Blood Urea Nitrogen 35H, Creatinine 1.66H, Sodium Level 145, Potassium Level 4.0 , Chloride Level 107, Carbon Dioxide Level 29, Calcium Level 8.3L, Aspartate Amino Transf (AST/SGOT) 21, Alanine Aminotransferase (ALT/SGPT) 23, Alkaline Phosphatase 67, Total Bilirubin 0.6, Total Protein 6.3L, Albumin 2.6L, Albumin/ Globulin Ratio 0.70L CBC/BMP Laboratory Tests 06/24/17 05:51 Red Blood Count 3.51 L, Mean Corpuscular Volume 90.6, Mean Corpuscular Hemoglobin 30.5, Mean Corpuscular Hemoglobin Concent 33.7, Red Cell Distribution Width 14.8 H, Neutrophils (%) (Auto) 64.0, Lymphocytes (%) (Auto) 19.5 L, Monocytes (%) (Auto) 6.5 H, Eosinophils (%) (Auto) 6.6 H, Basophils (%) (Auto) 0.3, Neutrophils # (Auto) 4.9, Lymphocytes # (Auto) 1.7, Monocytes # ( Auto) 0.5, Eosinophils # (Auto) 0.5, Basophils # (Auto) 0.0, Calcium Level 8.3 L , Aspartate Amino Transf (AST/SGOT) 21, Alanine Aminotransferase (ALT/SGPT) 23, Alkaline Phosphatase 67, Total Bilirubin 0.6, Total Protein 6.3 L, Albumin 2.6 L Microbiology Microbiology 06/20/17 Blood Culture - Preliminary, Resulted No Growth after 72 hours. All specime... 06/20/17 Blood Culture - Preliminary, Resulted No Growth after 72 hours. All specime... 06/21/17 Occult Blood - Final, Complete SKYLER CALDWELL PA-C Jun 24, 2017 11:07 Andrey Caldwell MD Jun 24, 2017 13:27
[2017-06-24 11:23] VITALS: BP 138/72
[2017-06-24] MEDS: DOCUSATE SODIUM 100 MG CAP PO SCH ×2 (12:47→20:42)
[2017-06-24] MEDS: MIRALAX *UNIT DOSE* 17GM PACKET PO SCH (12:47)
[2017-06-24 14:00] VITALS: BP 154/58
[2017-06-24] MEDS: LEVEMIR (INSULIN DETEMIR) 1 UNITS/0.01ML SC SCH (20:42)
[2017-06-24 22:00] VITALS: BP 157/68
[2017-06-25 06:00] VITALS: BP 146/75
[2017-06-25] MEDS: HumaLOG INSULIN (NovoLOG) PER UNIT SC SCH ×4 (07:30→21:00)
[2017-06-25] MEDS: ENOXAPARIN 40 MG/0.4 ML SYRINGE (J1650) SC SCH (08:56)
[2017-06-25] MEDS: METOPROLOL TART 50 MG TAB PO SCH ×2 (08:56→21:06)
[2017-06-25] MEDS: DOCUSATE SODIUM 100 MG CAP PO SCH ×2 (08:56→21:06)
[2017-06-25] MEDS: MIRALAX *UNIT DOSE* 17GM PACKET PO SCH (08:56)
[2017-06-25] MEDS: PANTOPRAZOLE 40MG TAB (PROTONIX) PO SCH (08:56)
[2017-06-25 14:00] VITALS: BP 128/60
[2017-06-25] MEDS: LEVEMIR (INSULIN DETEMIR) 1 UNITS/0.01ML SC SCH (21:06)
[2017-06-26 06:05] VITALS: BP 142/60
[2017-06-26 06:17] LABS: MEAN CORPUSCULAR HEMOGLOBIN 30.6 pg (27.0-33.0); MEAN CORPUSCULAR HGB CONC 34.1 g/dl (32.0-36.5); MEAN CORPUSCULAR VOLUME 89.9 fl (80.0-96.0); RED CELL DISTRIBUTION WIDTH 14.8 % (11.5-14.5); WHITE BLOOD COUNT 9.7 K/mm3 (4.0-10.0)
[2017-06-26 07:08] LABS: ALBUMIN 2.6 GM/DL (3.2-5.2); ALBUMIN/GLOBULIN RATIO 0.65 (1.00-1.93); BILIRUBIN,TOTAL 0.5 MG/DL (0.2-1.0); CREATININE FOR GFR 1.56 MG/DL (0.70-1.30); GLOMERULAR FILTRATION RATE 45.3 (>35); POTASSIUM SERUM 3.9 MEQ/L (3.5-5.1); TOTAL PROTEIN 6.6 GM/DL (6.4-8.2)
[2017-06-26] MEDS: MIRALAX *UNIT DOSE* 17GM PACKET PO SCH (08:53)
[2017-06-26] MEDS: PANTOPRAZOLE 40MG TAB (PROTONIX) PO SCH (08:54)
[2017-06-26] MEDS: METOPROLOL TART 50 MG TAB PO SCH ×2 (08:55→21:49)
[2017-06-26] MEDS: DOCUSATE SOD LIQ 100MG/10ML UDC PO SCH ×2 (08:56→21:48)
[2017-06-26] MEDS: ENOXAPARIN 40 MG/0.4 ML SYRINGE (J1650) SC SCH (09:03)
[2017-06-26] MEDS: HumaLOG INSULIN (NovoLOG) PER UNIT SC SCH ×4 (09:04→20:33)
[2017-06-26] MEDS: LEVEMIR (INSULIN DETEMIR) 1 UNITS/0.01ML SC SCH (21:48)
[2017-06-27 05:15] VITALS: BP 120/56
[2017-06-27] MEDS: HumaLOG INSULIN (NovoLOG) PER UNIT SC SCH ×4 (07:30→21:40)
[2017-06-27] MEDS: PANTOPRAZOLE 40MG TAB (PROTONIX) PO SCH (09:56)
[2017-06-27] MEDS: DOCUSATE SOD LIQ 100MG/10ML UDC PO SCH ×2 (09:57→21:49)
[2017-06-27] MEDS: METOPROLOL TART 50 MG TAB PO SCH ×2 (09:59→21:51)
[2017-06-27] MEDS: MIRALAX *UNIT DOSE* 17GM PACKET PO SCH (09:59)
[2017-06-27] MEDS: ENOXAPARIN 40 MG/0.4 ML SYRINGE (J1650) SC SCH (10:01)
[2017-06-27] MEDS: LEVEMIR (INSULIN DETEMIR) 1 UNITS/0.01ML SC SCH (21:50)
[2017-06-28 06:00] VITALS: BP 159/70
[2017-06-28] MEDS: HumaLOG INSULIN (NovoLOG) PER UNIT SC SCH ×4 (07:36→20:38)
[2017-06-28] MEDS: DOCUSATE SOD LIQ 100MG/10ML UDC PO SCH ×2 (08:20→20:47)
[2017-06-28] MEDS: PANTOPRAZOLE 40MG TAB (PROTONIX) PO SCH (08:20)
[2017-06-28] MEDS: METOPROLOL TART 50 MG TAB PO SCH ×2 (08:20→20:47)
[2017-06-28] MEDS: MIRALAX *UNIT DOSE* 17GM PACKET PO SCH (08:20)
[2017-06-28] MEDS: ENOXAPARIN 40 MG/0.4 ML SYRINGE (J1650) SC SCH (13:42)
[2017-06-28 20:45] VITALS: BP 159/71
[2017-06-28] MEDS: LEVEMIR (INSULIN DETEMIR) 1 UNITS/0.01ML SC SCH (20:48)
[2017-06-29 06:00] VITALS: BP_SYST 151; BP_SYST 165; BP_DIAS 66; BP_DIAS 72
[2017-06-29] MEDS: HumaLOG INSULIN (NovoLOG) PER UNIT SC SCH ×4 (07:30→20:19)
[2017-06-29 08:30] VITALS: BP 154/80
[2017-06-29] MEDS: MIRALAX *UNIT DOSE* 17GM PACKET PO SCH (09:12)
[2017-06-29] MEDS: DOCUSATE SOD LIQ 100MG/10ML UDC PO SCH ×2 (09:12→20:19)
[2017-06-29] MEDS: PANTOPRAZOLE 40MG TAB (PROTONIX) PO SCH (09:13)
[2017-06-29] MEDS: METOPROLOL TART 50 MG TAB PO SCH ×2 (09:13→20:19)
[2017-06-29] MEDS: ENOXAPARIN 40 MG/0.4 ML SYRINGE (J1650) SC SCH (09:13)
[2017-06-29 15:44] VITALS: BP 138/62
[2017-06-29 20:00] VITALS: BP 158/67
[2017-06-29] MEDS: LEVEMIR (INSULIN DETEMIR) 1 UNITS/0.01ML SC SCH (20:20)
[2017-06-30 06:00] VITALS: BP 166/74
[2017-06-30] MEDS: HumaLOG INSULIN (NovoLOG) PER UNIT SC SCH ×4 (07:26→21:00)
[2017-06-30] MEDS: PANTOPRAZOLE 40MG TAB (PROTONIX) PO SCH (08:16)
[2017-06-30] MEDS: DOCUSATE SOD LIQ 100MG/10ML UDC PO SCH ×2 (08:16→21:07)
[2017-06-30] MEDS: MIRALAX *UNIT DOSE* 17GM PACKET PO SCH (08:16)
[2017-06-30] MEDS: ENOXAPARIN 40 MG/0.4 ML SYRINGE (J1650) SC SCH (08:16)
[2017-06-30] MEDS: METOPROLOL TART 50 MG TAB PO SCH ×2 (08:19→21:08)
[2017-06-30] MEDS ORDERED: GLUC1VL SC (11:42)
[2017-06-30] MEDS ORDERED: LOPR1TAB6 PO (11:42)
[2017-06-30] MEDS ORDERED: LOVE1INJ SC (11:42)
[2017-06-30] MEDS ORDERED: INSUDET SC (11:42)
[2017-06-30] MEDS ORDERED: PEG1POW PO (11:42)
[2017-06-30] MEDS ORDERED: COUM1TAB14 PO (11:42)
[2017-06-30] MEDS ORDERED: INSUHUMDS SC ×2 (11:42)
[2017-06-30] MEDS ORDERED: GLUC4CHW PO (11:42)
[2017-06-30] MEDS ORDERED: DOCU10ELUD PO (11:42)
--- NOTE | 2017-06-30 11:55 | IPNPDOC ---
Subjective Date Seen The patient was seen on 06/30/17. Subjective Chief Complaint/HPI The patient is a 86-year-old male admitted with a reason for visit of Acute Ischemia Of Small Intestine. Events since last encounter Pt pleasantly confused. Denies any pain or SOB. Nursing reports pt with soft stools but no diarrhea. Nursing denies any blood in stool. Plan was for D/C today but apparently there are some insurance/financial issues that have cancelled this. PFS is involved. Pulmonary: Denies: Dyspnea Cardiovascular: Denies: Chest Pain Gastrointestinal: Denies: Abdominal Pain Objective Physical Examination General Exam: Positive: Alert (awake, alert. confused), No Acute Distress ENT Exam: Positive: Mucous membr. moist/pink Chest Exam: Positive: Clear to auscultation, Normal air movement Heart Exam: Positive: Rate Normal Abdomen Exam: Positive: Normal bowel sounds, Soft, Negative: Tenderness Extremity Exam: Negative: Edema Skin Exam: Positive: Lesion (covered on his L foot, toes) Assessment /Plan Problems (1) Acute ischemia of small intestine Status: Acute Response to Treatment: Stable Discussed With: Nurse, Patient, Health Care Proxy, Family with Pt Consent Problem Specific Plan: Monitor Clinically, Repeat Labs Problem Text: 06/30 - Tolerating diet. Nursing reports some soft stools but no diarrhea. 06/24 - Tolerating regular diet Add bowel care JFW: have met daily with mary grace, including today. Wilberto has made an unexpected recovery. Will restart some meds, address DM, plan back to [facility] 06/21 - Hospitalist spoke with Dr Palomares who does not feel as though pt is surgical candidate. DNR, MOLST in chart, limited medical interventions. (2) Chronic atrial fibrillation Status: Chronic Response to Treatment: Stable Problem Specific Plan: Monitor Clinically, Repeat Labs Problem Text: 06/30 - Nursing notes no recent bleeding. Plan is to restart Coumadin. Will continue the Lovenox until Coumadin therapeutic. Monitor INRs. ASA, Coumadin held d/t bleeding. Rate controlled with metoprolol. (3) Acute on chronic renal insufficiency Status: Acute Response to Treatment: Worse Problem Specific Plan: Monitor Clinically, Repeat Labs Problem Text: 06.24 - Renal function has returned to baseline (4) Diabetes Status: Chronic Response to Treatment: Stable Discussed With: Patient Problem Specific Plan: Monitor Clinically, Repeat Labs Problem Text: Currently on SSI restart low dose Levemir (5) CAD (coronary artery disease) Status: Chronic Response to Treatment: Stable Problem Specific Plan: Monitor Clinically Problem Text: 06/30 - Nursing notes no recent bleeding. Plan is to restart Coumadin. Will continue the Lovenox until Coumadin therapeutic. Monitor INRs. Anticoags held d/t bleeding, cont with beta sonido. restart statin (6) Dementia Status: Chronic (7) Diastolic CHF Status: Chronic Response to Treatment: Stable Problem Text: compensated currently Plan/VTE VTE Prophylaxis Ordered?: Yes (Lovenox) Plan Advance Directives: DNR Family Medicine Attending Note: I saw and examined Mr. Paris, discussed with LINDA Ervin. Agree with their note as documented. (ball racker) VS, I&O, 24H, Fishbone Vital Signs/I&O Vital Signs Date Time Temp Pulse Resp B/P (MAP) Pulse Ox O2 Delivery O2 Flow Rate FiO2 06/30/17 08:19 67 166/74 06/30/17 08:00 Room Air 06/30/17 06:00 97.8 17 99 I&O- Last 24 Hours up to 6 AM 06/30/17 06:00 Intake Total 475 ml Output Total 175 ml Balance 300 ml Laboratory Data 24H LABS Laboratory Tests 2 06/29/17 12:19: Bedside Glucose (Misc Panel) 94 06/29/17 16:57: Bedside Glucose (Misc Panel) 198H 06/29/17 20:09: Bedside Glucose (Misc Panel) 212H 06/30/17 04:49: Bedside Glucose (Misc Panel) 93 06/30/17 06:32: Bedside Glucose (Misc Panel) 86 Microbiology Microbiology 06/20/17 Blood Culture - Final, Complete NO GROWTH AFTER 5 DAYS 06/20/17 Blood Culture - Final, Complete NO GROWTH AFTER 5 DAYS 06/21/17 Occult Blood - Final, Complete 06/28/17 Gastrointestinal Tract Panel (PCR) - Final, Complete Enteropathogenic E.coli 06/28/17 Stool Occult Blood (CELESTINO) - Final, Complete Shadi Thompson RPA-C Jun 30, 2017 11:55 Beck Chew MD Jul 02, 2017 22:53
[2017-06-30] MEDS ORDERED: NITROGLYCERIN 0.4 MG SUBL TABLET SL PRN (12:00)
[2017-06-30] MEDS: ALLOPURINOL 100 MG TAB PO SCH (14:03)
[2017-06-30] MEDS: CALCITRIOL 0.25 MCG CAP (S0169) PO SCH (14:03)
[2017-06-30] MEDS: WARFARIN SOD 4 MG TAB PO SCH (17:00)
[2017-06-30] MEDS: LEVEMIR (INSULIN DETEMIR) 1 UNITS/0.01ML SC SCH (21:08)
[2017-06-30 22:00] VITALS: BP 125/77
[2017-07-01 06:00] VITALS: BP 132/74
[2017-07-01 06:41] LABS: BASO % 0.4 % (0.0-1.0); EOS # 0.3 K/mm3 (0.0-0.50); EOS % 4.4 % (0.0-3.0); LARGE UNSTAINED CELL # 0.3 K/mm3 (0.0-0.4); LARGE UNSTAINED CELL % 4.1 % (0.0-4.0); LYMPH # 1.5 K/mm3 (1.5-4.5); LYMPH % 17.5 % (24.0-44.0); MEAN CORPUSCULAR HEMOGLOBIN 29.8 pg (27.0-33.0); MONO # 0.5 K/mm3 (0.0-0.8); MONO % 6.6 % (0.0-5.0); NEUTROPHILS # 4.8 K/mm3 (1.8-7.7); NEUTROPHILS % 67.1 % (36.0-66.0); PLATELET COUNT, AUTOMATED 302 k/mm3 (150-450); RED CELL DISTRIBUTION WIDTH 14.9 % (11.5-14.5); WHITE BLOOD COUNT 7.2 K/mm3 (4.0-10.0)
[2017-07-01 06:48] LABS: INR 0.91
[2017-07-01] MEDS: HumaLOG INSULIN (NovoLOG) PER UNIT SC SCH ×4 (07:30→22:02)
[2017-07-01] MEDS: MIRALAX *UNIT DOSE* 17GM PACKET PO SCH (08:23)
[2017-07-01] MEDS: ENOXAPARIN 40 MG/0.4 ML SYRINGE (J1650) SC SCH (08:23)
[2017-07-01] MEDS: DOCUSATE SOD LIQ 100MG/10ML UDC PO SCH ×2 (08:24→22:16)
[2017-07-01] MEDS: ALLOPURINOL 100 MG TAB PO SCH (08:25)
[2017-07-01] MEDS: OMEPRAZOLE 20 MG CAP PO SCH (08:25)
[2017-07-01] MEDS: CALCITRIOL 0.25 MCG CAP (S0169) PO SCH (08:26)
[2017-07-01] MEDS: METOPROLOL TART 50 MG TAB PO SCH ×2 (08:26→22:18)
[2017-07-01] MEDS: WARFARIN SOD 4 MG TAB PO SCH (17:00)
[2017-07-01 22:00] VITALS: BP 154/66
[2017-07-02 06:00] VITALS: BP 160/70
[2017-07-02] MEDS: HumaLOG INSULIN (NovoLOG) PER UNIT SC SCH ×4 (07:30→21:37)
[2017-07-02 08:22] LABS: INR 0.9
[2017-07-02] MEDS: CALCITRIOL 0.25 MCG CAP (S0169) PO SCH (08:45)
[2017-07-02] MEDS: ALLOPURINOL 100 MG TAB PO SCH (10:28)
[2017-07-02] MEDS: METOPROLOL TART 50 MG TAB PO SCH ×2 (10:28→21:37)
[2017-07-02] MEDS: DOCUSATE SOD LIQ 100MG/10ML UDC PO SCH ×2 (10:28→21:37)
[2017-07-02] MEDS: MIRALAX *UNIT DOSE* 17GM PACKET PO SCH (10:28)
[2017-07-02] MEDS: OMEPRAZOLE 20 MG CAP PO SCH (10:28)
[2017-07-02] MEDS: ENOXAPARIN 40 MG/0.4 ML SYRINGE (J1650) SC SCH (10:29)
[2017-07-02] MEDS: WARFARIN SOD 4 MG TAB PO SCH (17:00)
[2017-07-02 21:37] VITALS: BP 181/72
[2017-07-02 21:50] VITALS: BP 173/74
[2017-07-02 22:52] VITALS: BP 170/70
[2017-07-03 01:36] VITALS: BP 148/58
[2017-07-03 06:00] VITALS: BP 165/74
[2017-07-03 06:29] LABS: INR 0.87
[2017-07-03] MEDS: HumaLOG INSULIN (NovoLOG) PER UNIT SC SCH ×4 (08:11→20:39)
[2017-07-03] MEDS: MIRALAX *UNIT DOSE* 17GM PACKET PO SCH (09:54)
[2017-07-03] MEDS: DOCUSATE SOD LIQ 100MG/10ML UDC PO SCH ×2 (09:54→21:32)
[2017-07-03] MEDS: ALLOPURINOL 100 MG TAB PO SCH (09:55)
[2017-07-03] MEDS: OMEPRAZOLE 20 MG CAP PO SCH (09:55)
[2017-07-03] MEDS: ENOXAPARIN 40 MG/0.4 ML SYRINGE (J1650) SC SCH (09:55)
[2017-07-03] MEDS: METOPROLOL TART 50 MG TAB PO SCH ×2 (09:56→21:33)
[2017-07-03] MEDS: WARFARIN SOD 4 MG TAB PO SCH (17:11)
[2017-07-04 06:00] VITALS: BP 136/71
[2017-07-04 06:00] LABS: INR 0.96
[2017-07-04] MEDS: MIRALAX *UNIT DOSE* 17GM PACKET PO SCH (08:13)
[2017-07-04] MEDS: ALLOPURINOL 100 MG TAB PO SCH (08:13)
[2017-07-04] MEDS: METOPROLOL TART 50 MG TAB PO SCH ×2 (08:13→20:53)
[2017-07-04] MEDS: OMEPRAZOLE 20 MG CAP PO SCH (08:13)
[2017-07-04] MEDS: DOCUSATE SOD LIQ 100MG/10ML UDC PO SCH ×2 (08:14→20:52)
[2017-07-04] MEDS: ENOXAPARIN 40 MG/0.4 ML SYRINGE (J1650) SC SCH (08:14)
[2017-07-04] MEDS: HumaLOG INSULIN (NovoLOG) PER UNIT SC SCH ×2 (08:14→12:00)
--- NOTE | 2017-07-04 13:25 | IPN ---
DATE: 07/04/2017 Wilberto was seen on weekend rounds. Blood pressure stable. Clinical status is unchanged. He has dementia, which is stable. He has had no active gastrointestinal (GI) bleeding. I am restarting his warfarin. Exam is unchanged. His warfarin is restarted 06/30/2017. He has not had a followup international normalized ratio (INR) yet. I see there is one ordered for tomorrow. He is also on sliding scale insulin with coverage and has had miniscule coverage. Still getting before food and nightly fingersticks, so will put an end to that. Waiting for placement at [facility].
[2017-07-04] MEDS: WARFARIN SOD 4 MG TAB PO SCH (16:13)
[2017-07-05 06:00] VITALS: BP 140/71
[2017-07-05 06:16] LABS: INR 0.95
[2017-07-05 06:19] LABS: ALBUMIN 2.8 GM/DL (3.2-5.2); ALBUMIN/GLOBULIN RATIO 0.65 (1.00-1.93); BILIRUBIN,TOTAL 0.5 MG/DL (0.2-1.0); CALCIUM LEVEL 8.7 MG/DL (8.8-10.2); CREATININE FOR GFR 1.69 MG/DL (0.70-1.30); GLOMERULAR FILTRATION RATE 41.3 (>35); POTASSIUM SERUM 4.3 MEQ/L (3.5-5.1); TOTAL PROTEIN 7.1 GM/DL (6.4-8.2)
[2017-07-05] MEDS: CALCITRIOL 0.25 MCG CAP (S0169) PO SCH (10:07)
[2017-07-05] MEDS: MIRALAX *UNIT DOSE* 17GM PACKET PO SCH (10:07)
[2017-07-05] MEDS: ALLOPURINOL 100 MG TAB PO SCH (10:07)
[2017-07-05] MEDS: DOCUSATE SOD LIQ 100MG/10ML UDC PO SCH ×2 (10:08→22:46)
[2017-07-05] MEDS: METOPROLOL TART 50 MG TAB PO SCH ×2 (10:08→21:00)
[2017-07-05] MEDS: ENOXAPARIN 40 MG/0.4 ML SYRINGE (J1650) SC SCH (10:09)
[2017-07-05] MEDS: OMEPRAZOLE 20 MG CAP PO SCH (10:09)
[2017-07-05] MEDS: WARFARIN SOD 4 MG TAB PO SCH (18:11)
[2017-07-06 06:00] VITALS: BP 144/76
[2017-07-06 06:51] LABS: INR 0.94
[2017-07-06] MEDS: MIRALAX *UNIT DOSE* 17GM PACKET PO SCH (09:50)
[2017-07-06] MEDS: METOPROLOL TART 50 MG TAB PO SCH ×2 (09:52→20:34)
[2017-07-06] MEDS: CALCITRIOL 0.25 MCG CAP (S0169) PO SCH (09:52)
[2017-07-06] MEDS: ENOXAPARIN 40 MG/0.4 ML SYRINGE (J1650) SC SCH (09:52)
[2017-07-06] MEDS: ALLOPURINOL 100 MG TAB PO SCH (09:52)
[2017-07-06] MEDS: OMEPRAZOLE 20 MG CAP PO SCH (09:52)
[2017-07-06] MEDS: DOCUSATE SOD LIQ 100MG/10ML UDC PO SCH ×2 (09:53→20:33)
[2017-07-06] MEDS: WARFARIN SOD 4 MG TAB PO SCH (17:15)
[2017-07-06 22:00] VITALS: BP 127/60
[2017-07-07 06:00] VITALS: BP 135/88
[2017-07-07 06:48] LABS: INR 0.98
[2017-07-07] MEDS: MIRALAX *UNIT DOSE* 17GM PACKET PO SCH (09:39)
[2017-07-07] MEDS: ENOXAPARIN 40 MG/0.4 ML SYRINGE (J1650) SC SCH (09:39)
[2017-07-07] MEDS: DOCUSATE SOD LIQ 100MG/10ML UDC PO SCH ×2 (09:40→21:38)
[2017-07-07] MEDS: CALCITRIOL 0.25 MCG CAP (S0169) PO SCH (09:40)
[2017-07-07] MEDS: OMEPRAZOLE 20 MG CAP PO SCH (09:40)
[2017-07-07] MEDS: ALLOPURINOL 100 MG TAB PO SCH (09:40)
[2017-07-07] MEDS: METOPROLOL TART 50 MG TAB PO SCH ×2 (09:40→21:38)
[2017-07-07] MEDS ORDERED: WARFARIN SOD 5 MG TAB PO ONE (17:00)
[2017-07-08 06:00] VITALS: BP 131/72
[2017-07-08 06:04] LABS: INR 1.01
[2017-07-08] MEDS: OMEPRAZOLE 20 MG CAP PO SCH (08:53)
[2017-07-08] MEDS: CALCITRIOL 0.25 MCG CAP (S0169) PO SCH (08:53)
[2017-07-08] MEDS: MIRALAX *UNIT DOSE* 17GM PACKET PO SCH (08:53)
[2017-07-08] MEDS: ALLOPURINOL 100 MG TAB PO SCH (08:54)
[2017-07-08] MEDS: DOCUSATE SOD LIQ 100MG/10ML UDC PO SCH ×2 (08:54→21:07)
[2017-07-08] MEDS: METOPROLOL TART 50 MG TAB PO SCH ×2 (08:54→21:08)
[2017-07-08] MEDS: ENOXAPARIN 40 MG/0.4 ML SYRINGE (J1650) SC SCH (08:54)
[2017-07-09 06:00] VITALS: BP 133/69
[2017-07-09] MEDS ORDERED: WARFARIN SOD 5 MG TAB PO ONE ×2 (07:45→17:00)
[2017-07-09] MEDS: WARFARIN SOD 5 MG TAB PO SCH (07:54)
[2017-07-09] MEDS: MIRALAX *UNIT DOSE* 17GM PACKET PO SCH (09:00)
[2017-07-09 09:55] LABS: INR 1.08
[2017-07-09] MEDS: DOCUSATE SOD LIQ 100MG/10ML UDC PO SCH ×2 (10:02→22:37)
[2017-07-09] MEDS: ALLOPURINOL 100 MG TAB PO SCH (10:03)
[2017-07-09] MEDS: ENOXAPARIN 40 MG/0.4 ML SYRINGE (J1650) SC SCH (10:03)
[2017-07-09] MEDS: CALCITRIOL 0.25 MCG CAP (S0169) PO SCH (10:03)
[2017-07-09] MEDS: OMEPRAZOLE 20 MG CAP PO SCH (10:03)
[2017-07-09] MEDS: METOPROLOL TART 50 MG TAB PO SCH ×2 (10:07→23:07)
[2017-07-09 22:00] VITALS: BP 170/78
[2017-07-10 06:00] VITALS: BP 124/66
[2017-07-10 07:06] LABS: INR 1.1
[2017-07-10] MEDS: MIRALAX *UNIT DOSE* 17GM PACKET PO SCH (09:59)
[2017-07-10] MEDS: OMEPRAZOLE 20 MG CAP PO SCH (09:59)
[2017-07-10] MEDS: DOCUSATE SOD LIQ 100MG/10ML UDC PO SCH ×2 (09:59→20:48)
[2017-07-10] MEDS: ALLOPURINOL 100 MG TAB PO SCH (10:00)
[2017-07-10] MEDS: METOPROLOL TART 50 MG TAB PO SCH ×2 (10:00→20:48)
[2017-07-10] MEDS: ENOXAPARIN 40 MG/0.4 ML SYRINGE (J1650) SC SCH (10:00)
--- NOTE | 2017-07-10 16:06 | IPNPDOC ---
Subjective Date Seen The patient was seen on 07/10/17. Subjective Chief Complaint/HPI The patient is a 86-year-old male admitted with a reason for visit of Acute Ischemia Of Small Intestine. Constitutional: Denies: Chills ENT: Denies: Head Aches Pulmonary: Denies: Dyspnea Cardiovascular: Denies: Chest Pain Gastrointestinal: Denies: Nausea, Vomiting Objective Physical Examination General Exam: Positive: Alert (awake, alert. confused), No Acute Distress ENT Exam: Positive: Mucous membr. moist/pink Chest Exam: Positive: Clear to auscultation, Normal air movement Heart Exam: Positive: Rate Normal Abdomen Exam: Positive: Normal bowel sounds, Soft, Negative: Tenderness Extremity Exam: Negative: Edema Skin Exam: Positive: Lesion (covered on his L foot, toes) Assessment /Plan Problems (1) Acute ischemia of small intestine Status: Acute Response to Treatment: Stable Discussed With: Nurse, Patient, Health Care Proxy, Family with Pt Consent Problem Specific Plan: Monitor Clinically, Repeat Labs Problem Text: Tolerating regular diet-no recurrent abdominal pain 06/21 - Hospitalist spoke with Dr Palomares who does not feel as though pt is surgical candidate. DNR, MOLST in chart, limited medical interventions. (2) Chronic atrial fibrillation Status: Chronic Response to Treatment: Stable Problem Specific Plan: Monitor Clinically, Repeat Labs Problem Text: 07/03 restarted VKA c goal INR 2-3-obvious close f/u for GI bleeding 07/11 1.3 5 07/10 1.1 10 07/09 1.1 10 07/08 1.0 5 07/07 1.0 5 HD 5 M-F/2.5 Sat/Sun Rate controlled with metoprolol. (3) Diabetes Status: Chronic Response to Treatment: Stable Discussed With: Patient Problem Specific Plan: Monitor Clinically, Repeat Labs Problem Text: AC TID/QHS BG adequate control 130-190 s hypos 07/10 RBG 435; therefore, restarted low dose SSNI s basal (4) CAD (coronary artery disease) Status: Chronic Response to Treatment: Stable Problem Specific Plan: Monitor Clinically Problem Text: No active symptoms (5) Dementia Status: Chronic Problem Text: Stable dementia s agitation (6) Diastolic CHF Status: Chronic Response to Treatment: Stable Problem Text: Euvolemic on current regimen (7) CKD (chronic kidney disease), stage III Status: Chronic Problem Text: 07/10 31/2.0, K 4.7 baseline cr 1.9-2.0 Plan/VTE VTE Prophylaxis Ordered?: Yes (Lovenox) Plan Advance Directives: DNR VS, I&O, 24H, Fishbone Vital Signs/I&O Vital Signs Date Time Temp Pulse Resp B/P (MAP) Pulse Ox O2 Delivery O2 Flow Rate FiO2 07/10/17 10:00 72 124/66 07/10/17 09:00 Room Air 07/10/17 06:00 97.6 20 07/09/17 06:00 96 I&O- Last 24 Hours up to 6 AM 07/10/17 06:00 Intake Total 1080 ml Balance 1080 ml Laboratory Data 24H LABS Laboratory Tests 2 07/10/17 06:34: Prothrombin Time 14.4, Prothromb Time International Ratio 1.10 Brando Monzon M.D. Jul 10, 2017 16:05
[2017-07-10 16:29] LABS: BASO % 0.5 % (0.0-1.0); EOS # 0.3 K/mm3 (0.0-0.50); EOS % 4.5 % (0.0-3.0); LARGE UNSTAINED CELL # 0.2 K/mm3 (0.0-0.4); LARGE UNSTAINED CELL % 2.3 % (0.0-4.0); LYMPH # 1.5 K/mm3 (1.5-4.5); LYMPH % 18.3 % (24.0-44.0); MEAN CORPUSCULAR HEMOGLOBIN 29.3 pg (27.0-33.0); MEAN CORPUSCULAR HGB CONC 31.3 g/dl (32.0-36.5); MEAN CORPUSCULAR VOLUME 93.7 fl (80.0-96.0); MONO # 0.5 K/mm3 (0.0-0.8); MONO % 6.7 % (0.0-5.0); NEUTROPHILS # 4.8 K/mm3 (1.8-7.7); NEUTROPHILS % 67.8 % (36.0-66.0); PLATELET COUNT, AUTOMATED 259 k/mm3 (150-450); RED CELL DISTRIBUTION WIDTH 14.4 % (11.5-14.5); WHITE BLOOD COUNT 7.1 K/mm3 (4.0-10.0)
[2017-07-10 16:36] LABS: INR 1.25
[2017-07-10 16:55] LABS: ALBUMIN 2.9 GM/DL (3.2-5.2); ALBUMIN/GLOBULIN RATIO 0.81 (1.00-1.93); BILIRUBIN,TOTAL 0.2 MG/DL (0.2-1.0); CALCIUM LEVEL 8.4 MG/DL (8.8-10.2); CREATININE FOR GFR 1.98 MG/DL (0.70-1.30); GLOMERULAR FILTRATION RATE 34.4 (>35); PERCENT SATURATION 8.5 % (19.7-50.0); POTASSIUM SERUM 4.7 MEQ/L (3.5-5.1); TOTAL PROTEIN 6.5 GM/DL (6.4-8.2)
[2017-07-10] MEDS ORDERED: WARFARIN SOD 5 MG TAB PO ONE (17:00)
[2017-07-10] MEDS: HumaLOG INSULIN (NovoLOG) PER UNIT SC SCH ×2 (18:32→20:48)
[2017-07-10 22:00] VITALS: BP 140/78
[2017-07-11 06:00] VITALS: BP 148/74
[2017-07-11 06:22] LABS: INR 1.31
[2017-07-11] MEDS: OMEPRAZOLE 20 MG CAP PO SCH (08:18)
[2017-07-11] MEDS: METOPROLOL TART 50 MG TAB PO SCH ×2 (08:18→21:01)
[2017-07-11] MEDS: MIRALAX *UNIT DOSE* 17GM PACKET PO SCH (08:18)
[2017-07-11] MEDS: ALLOPURINOL 100 MG TAB PO SCH (08:18)
[2017-07-11] MEDS: DOCUSATE SOD LIQ 100MG/10ML UDC PO SCH ×2 (08:18→21:01)
[2017-07-11] MEDS: ENOXAPARIN 40 MG/0.4 ML SYRINGE (J1650) SC SCH (08:18)
[2017-07-11] MEDS: HumaLOG INSULIN (NovoLOG) PER UNIT SC SCH ×4 (08:19→21:02)
[2017-07-11 16:01] LABS: INR 1.34
[2017-07-11] MEDS ORDERED: WARFARIN SOD 5 MG TAB PO ONE (17:00)
[2017-07-11] MEDS: WARFARIN SOD 5 MG TAB PO SCH (17:29)
[2017-07-11 22:00] VITALS: BP 160/93
[2017-07-12 06:00] VITALS: BP 140/76
[2017-07-12 08:22] LABS: INR 1.52
[2017-07-12] MEDS: DOCUSATE SOD LIQ 100MG/10ML UDC PO SCH ×2 (09:01→21:17)
[2017-07-12] MEDS: HumaLOG INSULIN (NovoLOG) PER UNIT SC SCH ×4 (09:03→21:00)
[2017-07-12] MEDS: ENOXAPARIN 40 MG/0.4 ML SYRINGE (J1650) SC SCH (09:05)
[2017-07-12] MEDS: MIRALAX *UNIT DOSE* 17GM PACKET PO SCH (09:06)
[2017-07-12] MEDS: CALCITRIOL 0.25 MCG CAP (S0169) PO SCH (09:07)
[2017-07-12] MEDS: OMEPRAZOLE 20 MG CAP PO SCH (09:08)
[2017-07-12] MEDS: METOPROLOL TART 50 MG TAB PO SCH ×2 (09:09→21:18)
[2017-07-12] MEDS: ALLOPURINOL 100 MG TAB PO SCH (09:10)
[2017-07-12] MEDS: WARFARIN SOD 5 MG TAB PO SCH (17:32)
[2017-07-13 06:00] VITALS: BP 150/79
[2017-07-13] MEDS: HumaLOG INSULIN (NovoLOG) PER UNIT SC SCH ×4 (07:50→20:12)
[2017-07-13 08:31] LABS: INR 1.6
[2017-07-13] MEDS: CALCITRIOL 0.25 MCG CAP (S0169) PO SCH (09:00)
[2017-07-13] MEDS: METOPROLOL TART 50 MG TAB PO SCH ×2 (09:52→20:12)
[2017-07-13] MEDS: ALLOPURINOL 100 MG TAB PO SCH (09:53)
[2017-07-13] MEDS: OMEPRAZOLE 20 MG CAP PO SCH (09:53)
[2017-07-13] MEDS: MIRALAX *UNIT DOSE* 17GM PACKET PO SCH (09:53)
[2017-07-13] MEDS: DOCUSATE SOD LIQ 100MG/10ML UDC PO SCH ×2 (09:53→20:11)
[2017-07-13] MEDS: ENOXAPARIN 40 MG/0.4 ML SYRINGE (J1650) SC SCH (09:54)
[2017-07-13] MEDS: WARFARIN SOD 5 MG TAB PO SCH (17:20)
[2017-07-13 19:50] VITALS: BP 158/70
[2017-07-14 06:00] VITALS: BP 151/68
[2017-07-14 07:12] LABS: INR 1.8
[2017-07-14] MEDS: HumaLOG INSULIN (NovoLOG) PER UNIT SC SCH ×4 (08:38→21:00)
[2017-07-14] MEDS: DOCUSATE SOD LIQ 100MG/10ML UDC PO SCH ×2 (08:38→20:53)
[2017-07-14] MEDS: ENOXAPARIN 40 MG/0.4 ML SYRINGE (J1650) SC SCH (08:38)
[2017-07-14] MEDS: MIRALAX *UNIT DOSE* 17GM PACKET PO SCH (08:38)
[2017-07-14] MEDS: CALCITRIOL 0.25 MCG CAP (S0169) PO SCH (08:39)
[2017-07-14] MEDS: OMEPRAZOLE 20 MG CAP PO SCH (08:39)
[2017-07-14] MEDS: METOPROLOL TART 50 MG TAB PO SCH ×2 (08:39→20:53)
[2017-07-14] MEDS: ALLOPURINOL 100 MG TAB PO SCH (08:39)
[2017-07-14] MEDS: WARFARIN SOD 5 MG TAB PO SCH (17:30)
[2017-07-15 06:00] VITALS: BP 142/60
[2017-07-15 06:22] LABS: INR 1.85
[2017-07-15] MEDS: HumaLOG INSULIN (NovoLOG) PER UNIT SC SCH ×4 (08:31→21:53)
[2017-07-15] MEDS: DOCUSATE SOD LIQ 100MG/10ML UDC PO SCH ×2 (08:41→21:50)
[2017-07-15] MEDS: ALLOPURINOL 100 MG TAB PO SCH (08:42)
[2017-07-15] MEDS: METOPROLOL TART 50 MG TAB PO SCH ×2 (08:42→21:50)
[2017-07-15] MEDS: CALCITRIOL 0.25 MCG CAP (S0169) PO SCH (08:42)
[2017-07-15] MEDS: OMEPRAZOLE 20 MG CAP PO SCH (08:42)
[2017-07-15] MEDS: MIRALAX *UNIT DOSE* 17GM PACKET PO SCH (08:42)
[2017-07-15] MEDS: ENOXAPARIN 40 MG/0.4 ML SYRINGE (J1650) SC SCH (08:43)
[2017-07-15 10:00] VITALS: BP 120/64
--- NOTE | 2017-07-15 11:22 | IPNPDOC ---
Subjective Date Seen The patient was seen on 07/15/17. Subjective Chief Complaint/HPI The patient is a 86-year-old male admitted with a reason for visit of Acute Ischemia Of Small Intestine. Events since last encounter Nursing reports some combativeness, mostly when left alone, calms down with nursing present. General: Reports: ROS Unobtainable Objective Physical Examination General Exam: Positive: Alert (awake, alert. confused), No Acute Distress ENT Exam: Positive: Mucous membr. moist/pink Chest Exam: Positive: Clear to auscultation, Normal air movement Heart Exam: Positive: Rate Normal Abdomen Exam: Positive: Normal bowel sounds, Soft, Negative: Tenderness Extremity Exam: Negative: Edema Skin Exam: Positive: Lesion (covered on his L foot, toes) Assessment /Plan Problems (1) Dementia Status: Chronic Problem Text: Stable dementia s agitation (2) Acute ischemia of small intestine Status: Acute Response to Treatment: Stable Discussed With: Nurse, Patient, Health Care Proxy, Family with Pt Consent Problem Specific Plan: Monitor Clinically, Repeat Labs Problem Text: Tolerating regular diet-no recurrent abdominal pain 06/21 - Hospitalist spoke with Dr Palomares who does not feel as though pt is surgical candidate. DNR, MOLST in chart, limited medical interventions. (3) Chronic atrial fibrillation Status: Chronic Response to Treatment: Stable Problem Specific Plan: Monitor Clinically, Repeat Labs Problem Text: 07/15- INR 1.85, cont with Coumadin 5 mg daily, INR slowly trending upward, change INR to M/Th order. 07/03 restarted VKA c goal INR 2-3-obvious close f/u for GI bleeding 07/11 1.3 5 07/10 1.1 10 07/09 1.1 10 07/08 1.0 5 07/07 1.0 5 HD 5 M-F/2.5 Sat/Sun Rate controlled with metoprolol. (4) Diabetes Status: Chronic Response to Treatment: Stable Discussed With: Patient Problem Specific Plan: Monitor Clinically, Repeat Labs Problem Text: AC TID/QHS BG adequate control 130-190 s hypos 07/10 RBG 435; therefore, restarted low dose SSNI s basal (5) CAD (coronary artery disease) Status: Chronic Response to Treatment: Stable Problem Specific Plan: Monitor Clinically Problem Text: No active symptoms (6) Diastolic CHF Status: Chronic Response to Treatment: Stable Problem Text: Euvolemic on current regimen (7) CKD (chronic kidney disease), stage III Status: Chronic Problem Text: 07/10 31/2.0, K 4.7 baseline cr 1.9-2.0 Plan/VTE VTE Prophylaxis Ordered?: Yes (Lovenox) Plan Advance Directives: DNR VS, I&O, 24H, Fishbone Vital Signs/I&O Vital Signs Date Time Temp Pulse Resp B/P (MAP) Pulse Ox O2 Delivery O2 Flow Rate FiO2 07/15/17 10:00 97.7 74 16 120/64 (82) 98 Room Air I&O- Last 24 Hours up to 6 AM 07/16/17 06:00 Intake Total 0 ml Output Total 0 ml Balance 0 ml Laboratory Data 24H LABS Laboratory Tests 2 07/14/17 11:30: Bedside Glucose (Misc Panel) 193H 07/14/17 16:44: Bedside Glucose (Misc Panel) 217H 07/14/17 20:12: Bedside Glucose (Misc Panel) 192H 07/15/17 05:33: Prothrombin Time 21.9H, Prothromb Time International Ratio 1.85 07/15/17 07:56: Bedside Glucose (Misc Panel) 192H LEÓN BAUTISTA PA-C Jul 15, 2017 11:22 Michael Frazier MD Jul 15, 2017 14:30
[2017-07-15] MEDS: WARFARIN SOD 5 MG TAB PO SCH (18:01)
[2017-07-16 06:00] VITALS: BP 143/84
[2017-07-16] MEDS: METOPROLOL TART 50 MG TAB PO SCH ×2 (08:51→21:00)
[2017-07-16] MEDS: MIRALAX *UNIT DOSE* 17GM PACKET PO SCH (08:51)
[2017-07-16] MEDS: ALLOPURINOL 100 MG TAB PO SCH (08:51)
[2017-07-16] MEDS: DOCUSATE SOD LIQ 100MG/10ML UDC PO SCH ×2 (08:52→21:00)
[2017-07-16] MEDS: ENOXAPARIN 40 MG/0.4 ML SYRINGE (J1650) SC SCH (08:52)
[2017-07-16] MEDS: OMEPRAZOLE 20 MG CAP PO SCH (08:52)
[2017-07-16] MEDS: CALCITRIOL 0.25 MCG CAP (S0169) PO SCH (08:52)
[2017-07-16] MEDS: HumaLOG INSULIN (NovoLOG) PER UNIT SC SCH ×4 (08:54→21:01)
[2017-07-17 06:00] VITALS: BP 150/80
[2017-07-17] MEDS: MIRALAX *UNIT DOSE* 17GM PACKET PO SCH (09:55)
[2017-07-17] MEDS: DOCUSATE SOD LIQ 100MG/10ML UDC PO SCH ×2 (09:55→21:24)
[2017-07-17] MEDS: OMEPRAZOLE 20 MG CAP PO SCH (09:55)
[2017-07-17] MEDS: ALLOPURINOL 100 MG TAB PO SCH (09:55)
[2017-07-17] MEDS: HumaLOG INSULIN (NovoLOG) PER UNIT SC SCH ×4 (09:59→21:25)
[2017-07-17] MEDS: METOPROLOL TART 50 MG TAB PO SCH ×2 (09:59→21:24)
[2017-07-17] MEDS: ENOXAPARIN 40 MG/0.4 ML SYRINGE (J1650) SC SCH (10:00)
[2017-07-17] MEDS: WARFARIN SOD 5 MG TAB PO SCH (17:38)
[2017-07-17] MEDS: LEVEMIR (INSULIN DETEMIR) 1 UNITS/0.01ML SC SCH (21:26)
[2017-07-18 06:00] VITALS: BP 141/70
[2017-07-18] MEDS: ENOXAPARIN 40 MG/0.4 ML SYRINGE (J1650) SC SCH (08:33)
[2017-07-18] MEDS: MIRALAX *UNIT DOSE* 17GM PACKET PO SCH (08:33)
[2017-07-18] MEDS: HumaLOG INSULIN (NovoLOG) PER UNIT SC SCH ×4 (08:34→21:00)
[2017-07-18] MEDS: OMEPRAZOLE 20 MG CAP PO SCH (08:34)
[2017-07-18] MEDS: METOPROLOL TART 50 MG TAB PO SCH ×2 (08:35→21:28)
[2017-07-18] MEDS: ALLOPURINOL 100 MG TAB PO SCH (08:35)
[2017-07-18] MEDS: DOCUSATE SOD LIQ 100MG/10ML UDC PO SCH ×3 (08:35→21:28)
[2017-07-18] MEDS: WARFARIN SOD 5 MG TAB PO SCH (16:56)
[2017-07-18 21:27] VITALS: BP 164/66
[2017-07-18] MEDS: LEVEMIR (INSULIN DETEMIR) 1 UNITS/0.01ML SC SCH (21:29)
[2017-07-19 06:36] LABS: INR 1.99
[2017-07-19 07:57] VITALS: BP 157/78
[2017-07-19] MEDS: DOCUSATE SOD LIQ 100MG/10ML UDC PO SCH ×2 (08:09→22:04)
[2017-07-19] MEDS: HumaLOG INSULIN (NovoLOG) PER UNIT SC SCH ×4 (08:09→21:00)
[2017-07-19] MEDS: CALCITRIOL 0.25 MCG CAP (S0169) PO SCH (08:12)
[2017-07-19] MEDS: OMEPRAZOLE 20 MG CAP PO SCH (08:12)
[2017-07-19] MEDS: ALLOPURINOL 100 MG TAB PO SCH (08:13)
[2017-07-19] MEDS: METOPROLOL TART 50 MG TAB PO SCH ×2 (08:13→22:04)
[2017-07-19] MEDS: ENOXAPARIN 40 MG/0.4 ML SYRINGE (J1650) SC SCH (08:14)
[2017-07-19] MEDS: MIRALAX *UNIT DOSE* 17GM PACKET PO SCH (08:15)
[2017-07-19] MEDS: WARFARIN SOD 5 MG TAB PO SCH (18:12)
[2017-07-19] MEDS: LEVEMIR (INSULIN DETEMIR) 1 UNITS/0.01ML SC SCH (21:00)
[2017-07-20 05:43] VITALS: BP 152/69
[2017-07-20] MEDS: HumaLOG INSULIN (NovoLOG) PER UNIT SC SCH ×4 (07:14→21:00)
[2017-07-20] MEDS: ENOXAPARIN 40 MG/0.4 ML SYRINGE (J1650) SC SCH (08:41)
[2017-07-20] MEDS: ALLOPURINOL 100 MG TAB PO SCH (08:41)
[2017-07-20] MEDS: MIRALAX *UNIT DOSE* 17GM PACKET PO SCH (08:41)
[2017-07-20] MEDS: CALCITRIOL 0.25 MCG CAP (S0169) PO SCH (08:42)
[2017-07-20] MEDS: OMEPRAZOLE 20 MG CAP PO SCH (08:42)
[2017-07-20] MEDS: DOCUSATE SOD LIQ 100MG/10ML UDC PO SCH ×2 (08:42→21:00)
[2017-07-20] MEDS: METOPROLOL TART 50 MG TAB PO SCH ×2 (08:44→21:00)
[2017-07-20] MEDS: WARFARIN SOD 5 MG TAB PO SCH (18:07)
[2017-07-20] MEDS: LEVEMIR (INSULIN DETEMIR) 1 UNITS/0.01ML SC SCH (21:00)
[2017-07-21 06:00] VITALS: BP 139/77
[2017-07-21] MEDS: HumaLOG INSULIN (NovoLOG) PER UNIT SC SCH ×4 (09:53→21:56)
[2017-07-21] MEDS: CALCITRIOL 0.25 MCG CAP (S0169) PO SCH ×2 (09:54→09:55)
[2017-07-21] MEDS: DOCUSATE SOD LIQ 100MG/10ML UDC PO SCH ×3 (09:55→21:55)
[2017-07-21] MEDS: MIRALAX *UNIT DOSE* 17GM PACKET PO SCH (09:55)
[2017-07-21] MEDS: ALLOPURINOL 100 MG TAB PO SCH (09:55)
[2017-07-21] MEDS: METOPROLOL TART 50 MG TAB PO SCH ×2 (09:55→21:55)
[2017-07-21] MEDS: OMEPRAZOLE 20 MG CAP PO SCH (09:55)
[2017-07-21] MEDS: ENOXAPARIN 40 MG/0.4 ML SYRINGE (J1650) SC SCH (09:56)
[2017-07-21 10:15] VITALS: BP 155/67
[2017-07-21] MEDS: WARFARIN SOD 5 MG TAB PO SCH (18:35)
[2017-07-21] MEDS: LEVEMIR (INSULIN DETEMIR) 1 UNITS/0.01ML SC SCH (21:56)
[2017-07-21 22:00] VITALS: BP 130/70
[2017-07-22 06:00] VITALS: BP 150/58
[2017-07-22 07:05] LABS: INR 1.7
[2017-07-22] MEDS: MIRALAX *UNIT DOSE* 17GM PACKET PO SCH ×2 (08:25→08:35)
[2017-07-22] MEDS: DOCUSATE SOD LIQ 100MG/10ML UDC PO SCH ×3 (08:25→21:00)
[2017-07-22] MEDS: HumaLOG INSULIN (NovoLOG) PER UNIT SC SCH (08:25)
[2017-07-22] MEDS: ENOXAPARIN 40 MG/0.4 ML SYRINGE (J1650) SC SCH (08:25)
[2017-07-22] MEDS: METOPROLOL TART 50 MG TAB PO SCH ×2 (08:26→22:05)
[2017-07-22] MEDS: ALLOPURINOL 100 MG TAB PO SCH (08:26)
[2017-07-22] MEDS: OMEPRAZOLE 20 MG CAP PO SCH (08:26)
[2017-07-22] MEDS: CALCITRIOL 0.25 MCG CAP (S0169) PO SCH ×2 (08:26→08:35)
--- NOTE | 2017-07-22 12:15 | IPNPDOC ---
Subjective Date Seen The patient was seen on 07/22/17. Subjective Chief Complaint/HPI The patient is a 86-year-old male admitted with a reason for visit of Acute Ischemia Of Small Intestine. Events since last encounter Pernurses, he is not eating much today and not taking some if his pills. His appetite waxes and wanes Constitutional: Denies: Chills, Fever Pulmonary: Denies: Dyspnea, Cough Cardiovascular: Denies: Chest Pain, Palpitations Gastrointestinal: Denies: Nausea, Vomiting, Abdominal Pain, Diarrhea, Constipation Objective Physical Examination General Exam: Positive: Alert (awake, alert. confused - he is more agitated today - pointing to something on the wall), No Acute Distress ENT Exam: Positive: Mucous membr. moist/pink Chest Exam: Positive: Clear to auscultation, Normal air movement Heart Exam: Positive: Rate Normal Abdomen Exam: Positive: Normal bowel sounds, Soft, Negative: Tenderness Extremity Exam: Negative: Edema Assessment /Plan Problems (1) Dementia Status: Chronic Problem Text: He is not eating well at times. I will check labs today since he seems more agitated and confused and his appetite is poor. at bedside I discussed possibility that his dementia is progressing and he may stop eating. she is aware that if this happens, we will need to discuss options. I did not discuss her wishes regarding feeding tubes at this point, but will discuss if needed. (2) Acute ischemia of small intestine Status: Acute Response to Treatment: Stable Discussed With: Nurse, Patient, Health Care Proxy, Family with Pt Consent Problem Specific Plan: Monitor Clinically, Repeat Labs Problem Text: Tolerating regular diet-no recurrent abdominal pain 06/21 - Hospitalist spoke with Dr Palomares who does not feel as though pt is surgical candidate. DNR, MOLST in chart, limited medical interventions. (3) Chronic atrial fibrillation Status: Chronic Response to Treatment: Stable Problem Specific Plan: Monitor Clinically, Repeat Labs Problem Text: 07/22 - INR still subtheraputic. Increase COumadin to 6 mg daily and monitor INR daily. STOP Lovenox 07/03 restarted VKA c goal INR 2-3-obvious close f/u for GI bleeding Rate controlled with metoprolol. (4) Diabetes Status: Chronic Response to Treatment: Stable Discussed With: Patient Problem Specific Plan: Monitor Clinically, Repeat Labs Problem Text: 07/22 - Blood sugars well controlled. there is no need for Sliding scale at this time. Continue low dose Levemir. (5) CAD (coronary artery disease) Status: Chronic Response to Treatment: Stable Problem Specific Plan: Monitor Clinically Problem Text: No active symptoms (6) Diastolic CHF Status: Chronic Response to Treatment: Stable Problem Text: Euvolemic on current regimen (7) CKD (chronic kidney disease), stage III Status: Chronic Problem Text: 07/10 31/2.0, K 4.7 baseline cr 1.9-2.0 Plan/VTE VTE Prophylaxis Ordered?: Yes (On Coumadin - stop Lovenox) Plan Advance Directives: DNR Family Medicine Attending Note: I saw and examined Mr. Paris this morning; I discussed his care with LINDA Mckeon and I agree with her note as documented. Labs ordered today shows improved BUN and Cr, and stable albumin. I agree with increasing coumadin as above. (KES). VS, I&O, 24H, Fishbone Vital Signs/I&O Vital Signs Date Time Temp Pulse Resp B/P (MAP) Pulse Ox O2 Delivery O2 Flow Rate FiO2 07/22/17 08:26 71 150/58 07/22/17 06:00 97.0 20 100 Room Air Laboratory Data 24H LABS Laboratory Tests 2 07/21/17 16:36: Bedside Glucose (Misc Panel) 143H 07/21/17 20:17: Bedside Glucose (Misc Panel) 283H 07/22/17 06:27: Prothrombin Time 20.5H, Prothromb Time International Ratio 1.70 07/22/17 07:25: Bedside Glucose (Misc Panel) 140H SKYLER BANEGAS PA-C Jul 22, 2017 12:15 MIRACLE LAZARO MD Jul 22, 2017 14:36
[2017-07-22 12:32] LABS: MEAN CORPUSCULAR HEMOGLOBIN 28.7 pg (27.0-33.0); MEAN CORPUSCULAR HGB CONC 31.5 g/dl (32.0-36.5); MEAN CORPUSCULAR VOLUME 91.3 fl (80.0-96.0); RED CELL DISTRIBUTION WIDTH 14.6 % (11.5-14.5); WHITE BLOOD COUNT 10.6 10^3/uL (4.0-10.0)
[2017-07-22 12:57] LABS: ALBUMIN 2.8 GM/DL (3.2-5.2); ALBUMIN/GLOBULIN RATIO 0.57 (1.00-1.93); BILIRUBIN,TOTAL 0.3 MG/DL (0.2-1.0); CALCIUM LEVEL 9.2 MG/DL (8.8-10.2); CREATININE FOR GFR 1.68 MG/DL (0.70-1.30); GLOMERULAR FILTRATION RATE 41.5 (>35); POTASSIUM SERUM 4.4 MEQ/L (3.5-5.1); TOTAL PROTEIN 7.7 GM/DL (6.4-8.2)
[2017-07-22 14:00] VITALS: BP 127/57
[2017-07-22] MEDS: WARFARIN SOD 3 MG TAB PO SCH (17:46)
[2017-07-22 22:05] VITALS: BP 128/72
[2017-07-22] MEDS: LEVEMIR (INSULIN DETEMIR) 1 UNITS/0.01ML SC SCH (22:05)
[2017-07-23 05:35] VITALS: BP 115/55
[2017-07-23] MEDS: CALCITRIOL 0.25 MCG CAP (S0169) PO SCH (09:32)
[2017-07-23] MEDS: MIRALAX *UNIT DOSE* 17GM PACKET PO SCH (09:32)
[2017-07-23] MEDS: ALLOPURINOL 100 MG TAB PO SCH (09:32)
[2017-07-23] MEDS: DOCUSATE SOD LIQ 100MG/10ML UDC PO SCH ×2 (09:32→21:00)
[2017-07-23] MEDS: OMEPRAZOLE 20 MG CAP PO SCH (09:33)
[2017-07-23] MEDS: WARFARIN SOD 3 MG TAB PO SCH (17:33)
[2017-07-23] MEDS: LEVEMIR (INSULIN DETEMIR) 1 UNITS/0.01ML SC SCH (21:00)
[2017-07-24 05:40] VITALS: BP 148/70
[2017-07-24 07:18] LABS: INR 2.02
[2017-07-24] MEDS: DOCUSATE SOD LIQ 100MG/10ML UDC PO SCH ×2 (09:44→21:00)
[2017-07-24] MEDS: ALLOPURINOL 100 MG TAB PO SCH (09:44)
[2017-07-24] MEDS: OMEPRAZOLE 20 MG CAP PO SCH (09:44)
[2017-07-24] MEDS: MIRALAX *UNIT DOSE* 17GM PACKET PO SCH (09:44)
[2017-07-24] MEDS: WARFARIN SOD 3 MG TAB PO SCH (16:41)
[2017-07-24] MEDS: LEVEMIR (INSULIN DETEMIR) 1 UNITS/0.01ML SC SCH (21:00)
[2017-07-25 06:05] VITALS: BP 167/74
[2017-07-25 07:19] LABS: INR 2.25
[2017-07-25] MEDS: OMEPRAZOLE 20 MG CAP PO SCH (09:04)
[2017-07-25] MEDS: ALLOPURINOL 100 MG TAB PO SCH (09:04)
[2017-07-25] MEDS: DOCUSATE SOD LIQ 100MG/10ML UDC PO SCH ×2 (09:05→21:00)
[2017-07-25] MEDS: MIRALAX *UNIT DOSE* 17GM PACKET PO SCH (09:05)
[2017-07-25] MEDS: WARFARIN SOD 3 MG TAB PO SCH (17:30)
[2017-07-25] MEDS ORDERED: HumaLOG INSULIN (NovoLOG) PER UNIT SC ONE (20:45)
[2017-07-25] MEDS: LEVEMIR (INSULIN DETEMIR) 1 UNITS/0.01ML SC SCH (21:00)
[2017-07-26 06:00] VITALS: BP 148/67
[2017-07-26 08:21] LABS: INR 2.1
[2017-07-26] MEDS: CALCITRIOL 0.25 MCG CAP (S0169) PO SCH ×2 (09:00→09:44)
[2017-07-26] MEDS: DOCUSATE SOD LIQ 100MG/10ML UDC PO SCH ×3 (09:00→21:32)
[2017-07-26] MEDS: OMEPRAZOLE 20 MG CAP PO SCH ×2 (09:00→09:44)
[2017-07-26] MEDS: MIRALAX *UNIT DOSE* 17GM PACKET PO SCH ×2 (09:00→09:44)
[2017-07-26] MEDS: ALLOPURINOL 100 MG TAB PO SCH ×2 (09:00→09:44)
[2017-07-26] MEDS: WARFARIN SOD 3 MG TAB PO SCH (16:47)
[2017-07-26] MEDS: LEVEMIR (INSULIN DETEMIR) 1 UNITS/0.01ML SC SCH (21:33)
[2017-07-27 06:00] VITALS: BP 148/82
[2017-07-27] MEDS: OMEPRAZOLE 20 MG CAP PO SCH (09:22)
[2017-07-27] MEDS: MIRALAX *UNIT DOSE* 17GM PACKET PO SCH (09:22)
[2017-07-27] MEDS: DOCUSATE SOD LIQ 100MG/10ML UDC PO SCH (09:22)
[2017-07-27] MEDS: ALLOPURINOL 100 MG TAB PO SCH (09:22)
[2017-07-27] MEDS: CALCITRIOL 0.25 MCG CAP (S0169) PO SCH (09:22)
[2017-07-27 10:00] LABS: MEAN CORPUSCULAR HEMOGLOBIN 28.8 pg (27.0-33.0); MEAN CORPUSCULAR HGB CONC 31.9 g/dl (32.0-36.5); MEAN CORPUSCULAR VOLUME 90.5 fl (80.0-96.0); RED CELL DISTRIBUTION WIDTH 14.2 % (11.5-14.5); WHITE BLOOD COUNT 9.4 10^3/uL (4.0-10.0)
[2017-07-27] MEDS ORDERED: COUM1TAB19 PO (10:59)
[2017-07-27] MEDS ORDERED: OMEP20CA3 PO (10:59)
[2017-07-27] MEDS ORDERED: ALLO10TA PO (10:59)
[2017-07-27] MEDS ORDERED: INSUDET SC (10:59)
--- NOTE | 2017-08-05 07:36 | DSES ---
DATE OF ADMISSION: 06/21/2017 DATE OF DISCHARGE: 07/27/2017 PRIMARY CARE PROVIDER: Dr. Andrey Caldwell ATTENDING PHYSICIAN: Dr. Andrey Caldwell HISTORY OF PRESENT ILLNESS: Wilberto Paris is an 86-year-old male patient of Dr. Caldwell, who was admitted with abdominal pain and coffee-ground emesis, concern for ischemic bowel. The case was discussed with his general surgeon Dr. Palomares and it was felt that given the patient's multiple comorbidities, he was not a good surgical candidate and he had orders for do not resuscitate. Dr. Caldwell spoke to the patient's and they did discuss comfort measures, which the elected. However, the patient did do better and comfort measures were stopped, although his prognosis was still poor and he was still not felt to be a candidate for surgical intervention but was felt to be likely to survive this episode. Initially, his warfarin for atrial fibrillation was held but then restarted as he had no recent bleeding. He was monitored under alternate level of care (ALC) status in the hospital and will be transferred to [facility] today. During the course of this admission and during his time on ALC, his medications were adjusted. Metoprolol was ultimately stopped. His sliding-scale insulin was discontinued and he was placed on low-dose Levemir. He will be discharged to [facility] today. PHYSICAL EXAMINATION VITAL SIGNS: Temperature 98.5, pulse 76, respiratory rate 16, blood pressure is 148/82, pulse oximetry 100% on room air. GENERAL: The patient with no acute distress. CHEST: Clear to auscultation bilaterally. HEART: Regular rate and rhythm. ABDOMEN: Positive bowel sounds, soft, nontender. EXTREMITIES: No edema. Most recent CBC from 07/27/2017: WBC 9.4, hemoglobin 11.5, hematocrit 36.1, platelets 334. Most recent INR from 07/26/2017 was 2.10. MEDICATIONS: - allopurinol 100 mg by mouth daily - docusate sodium 100 mg by mouth twice a day - Levemir 10 units subcutaneous at night - omeprazole 40 mg by mouth daily - MiraLax one packet by mouth daily - warfarin 6 mg by mouth daily - calcitriol 0.5 mcg by mouth five times a week - vitamin D 1000 units - nitroglycerin 0.5 mg sublingual every 5 minutes times three as needed for chest pain DISCHARGE INSTRUCTIONS: Followup with physician at [facility] this week. Recheck INR on , 07/29/2017. Activity with assist. Diet is mechanical soft, carbohydrate consistent. DISCHARGE DIAGNOSES: 1. Acute ischemia of the small intestine. 2. Dementia. 3. Chronic atrial fibrillation. 4. Diabetes. 5. Coronary artery disease. 6. Diastolic congestive heart failure. 7. Chronic kidney disease stage III.
== END 2017-07-27 12:58 | DRG 394 ==
LOC: M ED 22:39 → M ED INP 06-21 05:02 → M PCU 06-21 06:39 → OBSVTOIN 06-21 10:48 → M MSPAV 06-21 15:10
PROVIDERS: ADMIT Internal Medicine; ATTEND Family Medicine
PROC: 30233K1 Transfusion of Nonautologous Frozen Plasma into Peripheral Vein, Percutaneous Approach (ICD-10-PCS; principal; 2017-06-21)
DX: K55.019 Acute (reversible) ischemia of small intestine, extent unspecified (principal); N17.9 Acute kidney failure, unspecified; I50.32 Chronic diastolic (congestive) heart failure; I13.0 Hypertensive heart and chronic kidney disease with heart failure and stage 1 through stage 4 chronic kidney disease, or unspecified chronic kidney disease; Z66 Do not resuscitate; Z51.5 Encounter for palliative care; F03.90 Unspecified dementia, unspecified severity, without behavioral disturbance, psychotic disturbance, mood disturbance, and anxiety; I48.2 Chronic atrial fibrillation; E11.9 Type 2 diabetes mellitus without complications; N18.3 Chronic kidney disease, stage 3 (moderate); M10.9 Gout, unspecified; E78.5 Hyperlipidemia, unspecified; K22.70 Barrett's esophagus without dysplasia; I25.10 Atherosclerotic heart disease of native coronary artery without angina pectoris; N40.0 Benign prostatic hyperplasia without lower urinary tract symptoms; Z95.1 Presence of aortocoronary bypass graft; Z95.0 Presence of cardiac pacemaker; Z88.2 Allergy status to sulfonamides; Z88.1 Allergy status to other antibiotic agents; Z88.8 Allergy status to other drugs, medicaments and biological substances; Z95.2 Presence of prosthetic heart valve; Z96.0 Presence of urogenital implants; Z79.82 Long term (current) use of aspirin; Z79.4 Long term (current) use of insulin; Z79.01 Long term (current) use of anticoagulants; Z79.899 Other long term (current) drug therapy; Z87.891 Personal history of nicotine dependence

== ENCOUNTER → 2017-08-03 | Outpatient (REF) ==
[~2017-08-03] MED LIST changes: +ALLO10TA PO; +COUM1TAB14 PO; +COUM1TAB19 PO; +DOCU10ELUD PO; +GLUC1VL SC; +GLUC4CHW PO; +INSUDET SC; +INSUHUMDS SC; +LANTINJ4 SC; +LOVE1INJ SC; +OMEP20CA3 PO; +ROCA0.5C PO; +WARF-23 PO
[2017-08-03 11:58] LABS: MEAN CORPUSCULAR HEMOGLOBIN 28.4 pg (27.0-33.0); MEAN CORPUSCULAR HGB CONC 31.6 g/dl (32.0-36.5); MEAN CORPUSCULAR VOLUME 89.9 fl (80.0-96.0); RED CELL DISTRIBUTION WIDTH 14.2 % (11.5-14.5); WHITE BLOOD COUNT 10.7 10^3/uL (4.0-10.0)
[2017-08-03 12:34] LABS: CALCIUM LEVEL 9.7 MG/DL (8.8-10.2); CREATININE FOR GFR 1.91 MG/DL (0.70-1.30); GLOMERULAR FILTRATION RATE 35.8 (>35); POTASSIUM SERUM 5.1 MEQ/L (3.5-5.1)
== END ==
DX: I48.91 Unspecified atrial fibrillation (principal)

== ENCOUNTER → 2017-08-11 | Outpatient (REF) ==
[2017-08-11 13:36] LABS: INR 1.45
== END ==
DX: I48.91 Unspecified atrial fibrillation (principal)

== ENCOUNTER → 2017-09-21 | Outpatient (REF) | payer MEDICARE, MEDICAID, OTHER | DX: N18.3 Chronic kidney disease, stage 3 (moderate) (principal); D64.9 Anemia, unspecified; N25.81 Secondary hyperparathyroidism of renal origin; E55.9 Vitamin D deficiency, unspecified ==

== ENCOUNTER → 2017-09-28 | Outpatient (REF) | payer MEDICARE, MEDICAID, OTHER ==
[2017-09-28 11:19] LABS: BASO % 0.2 % (0.0-1.0); EOS # 0.1 10^3/uL (0.0-0.50); EOS % 0.9 % (0.0-3.0); IMMATURE GRANULOCYTE % 0.4 % (0-0); LYMPH # 1.3 10^3/uL (1.5-4.5); LYMPH % 9.2 % (24.0-44.0); MEAN CORPUSCULAR HEMOGLOBIN 26.3 pg (27.0-33.0); MEAN CORPUSCULAR HGB CONC 30.7 g/dl (32.0-36.5); MEAN CORPUSCULAR VOLUME 85.7 fl (80.0-96.0); MONO # 0.7 10^3/uL (0.0-0.8); MONO % 5.1 % (0.0-5.0); NEUTROPHILS # 11.5 10^3/uL (1.8-7.7); NEUTROPHILS % 84.2 % (36.0-66.0); PLATELET COUNT, AUTOMATED 311 10^3/uL (150-450); RED CELL DISTRIBUTION WIDTH 16.1 % (11.5-14.5); WHITE BLOOD COUNT 13.6 10^3/uL (4.0-10.0)
[2017-09-28 11:46] LABS: ALBUMIN 2.7 GM/DL (3.2-5.2); CALCIUM LEVEL 8.8 MG/DL (8.8-10.2); CREATININE FOR GFR 1.58 MG/DL (0.70-1.30); GLOMERULAR FILTRATION RATE 44.5 (>35); PHOSPHORUS LEVEL 3.3 MG/DL (2.5-4.9); POTASSIUM SERUM 4.8 MEQ/L (3.5-5.1)
== END ==
DX: N18.3 Chronic kidney disease, stage 3 (moderate) (principal)

== ENCOUNTER → 2017-10-04 | Outpatient (REF) | payer MEDICARE, MEDICAID, OTHER | DX: E16.2 Hypoglycemia, unspecified (principal); Z53.9 Procedure and treatment not carried out, unspecified reason ==

== ENCOUNTER → 2017-11-11 | Outpatient (REF) | payer MEDICARE, MEDICAID, OTHER ==
[2017-11-11 10:26] LABS: INR 1.09; PROTHROMBIN TIME 14.3 SECONDS (12.4-14.5)
== END ==
DX: I48.91 Unspecified atrial fibrillation (principal)
CPT/HCPCS: 85610

== ENCOUNTER → 2017-11-16 | Outpatient (REF) | payer MEDICARE, MEDICAID, OTHER ==
[2017-11-16 11:54] LABS: BASO % 0.4 % (0.0-1.0); HEMATOCRIT 28.5 % (42.0-52.0); HEMOGLOBIN 8.9 g/dl (14.0-18.0); IMMATURE GRANULOCYTE % 0.6 % (0-0); LYMPH # 0.7 10^3/uL (1.5-4.5); LYMPH % 13.5 % (24.0-44.0); MEAN CORPUSCULAR HEMOGLOBIN 25.1 pg (27.0-33.0); MEAN CORPUSCULAR HGB CONC 31.2 g/dl (32.0-36.5); MEAN CORPUSCULAR VOLUME 80.5 fl (80.0-96.0); MONO # 1.1 10^3/uL (0.0-0.8); MONO % 20.9 % (0.0-5.0); NEUTROPHILS # 3.4 10^3/uL (1.8-7.7); NEUTROPHILS % 64.6 % (36.0-66.0); PLATELET COUNT, AUTOMATED 346 10^3/uL (150-450); RED BLOOD COUNT 3.54 10^6/uL (4.30-6.10); WHITE BLOOD COUNT 5.3 10^3/uL (4.0-10.0)
[2017-11-16 12:29] LABS: ALBUMIN 2.5 GM/DL (3.2-5.2); ALBUMIN/GLOBULIN RATIO 0.58 (1.00-1.93); ALKALINE PHOSPHATASE 83 U/L (45-117); ALT/SGPT 14 U/L (12-78); ANION GAP 11 MEQ/L (8-16); AST/SGOT 45 U/L (7-37); BILIRUBIN,TOTAL 0.3 MG/DL (0.2-1.0); BLOOD UREA NITROGEN 34 MG/DL (7-18); CALCIUM LEVEL 8.5 MG/DL (8.8-10.2); CARBON DIOXIDE LEVEL 26 MEQ/L (21-32); CHLORIDE LEVEL 102 MEQ/L (98-107); CREATININE FOR GFR 2.12 MG/DL (0.70-1.30); GLOMERULAR FILTRATION RATE 31.7 (>35); GLUCOSE, FASTING 328 MG/DL (70-100); SODIUM LEVEL 139 MEQ/L (136-145); TOTAL PROTEIN 6.8 GM/DL (6.4-8.2)
== END ==
DX: I51.7 Cardiomegaly (principal); J90 Pleural effusion, not elsewhere classified; Z95.0 Presence of cardiac pacemaker; R05 Cough; R50.9 Fever, unspecified
CPT/HCPCS: 80053

== ENCOUNTER → 2017-11-17 | Outpatient (REF) | payer MEDICARE, MEDICAID, OTHER | DX: R50.9 Fever, unspecified (principal) | CPT/HCPCS: 87804 ==

== ENCOUNTER → 2017-11-22 | Outpatient (REF) | payer MEDICARE, MEDICAID, OTHER ==
[2017-11-22 13:51] LABS: HEMATOCRIT 34.4 % (42.0-52.0); HEMOGLOBIN 10.4 g/dl (14.0-18.0); MEAN CORPUSCULAR HEMOGLOBIN 24.7 pg (27.0-33.0); MEAN CORPUSCULAR HGB CONC 30.2 g/dl (32.0-36.5); MEAN CORPUSCULAR VOLUME 81.7 fl (80.0-96.0); PLATELET COUNT, AUTOMATED 367 10^3/uL (150-450); RED BLOOD COUNT 4.21 10^6/uL (4.30-6.10); RED CELL DISTRIBUTION WIDTH 18.7 % (11.5-14.5); WHITE BLOOD COUNT 8.1 10^3/uL (4.0-10.0)
== END ==
DX: R50.9 Fever, unspecified (principal)
CPT/HCPCS: 85027

== ENCOUNTER → 2017-11-23 | Outpatient (REF) | payer MEDICARE, MEDICAID, OTHER ==
[2017-11-23 09:53] LABS: ANION GAP 14 MEQ/L (8-16); BLOOD UREA NITROGEN 59 MG/DL (7-18); CALCIUM LEVEL 8.8 MG/DL (8.8-10.2); CARBON DIOXIDE LEVEL 28 MEQ/L (21-32); CHLORIDE LEVEL 114 MEQ/L (98-107); CREATININE FOR GFR 2.44 MG/DL (0.70-1.30); GLOMERULAR FILTRATION RATE 26.9 (>35); POTASSIUM SERUM 4.2 MEQ/L (3.5-5.1); SODIUM LEVEL 156 MEQ/L (136-145)
[2017-11-23 09:57] LABS: AMORPHOUS SEDIMENT SMALL (NEGATIVE); APPEARANCE, URINE CLOUDY (CLEAR); BACTERIA, URINE AUTO NEGATIVE (NEGATIVE); BILIRUBIN, URINE AUTO NEGATIVE (NEGATIVE); BLOOD, URINE BLOOD 1+ (NEGATIVE); COLOR, URINE AMBER (YELLOW); GLUCOSE, URINE (UA) AUTO 2+ mg/dL (NEGATIVE); KETONE, URINE AUTO TRACE mg/dL (NEGATIVE); LEUKOCYTE ESTERASE, URINE AUTO NEGATIVE (NEGATIVE); NITRITE, URINE AUTO NEGATIVE (NEGATIVE); PROTEIN, URINE AUTO 3+ mg/dL (NEGATIVE); RBC, URINE AUTO 18 /HPF (0-3); SPECIFIC GRAVITY URINE AUTO 1.023 (1.002-1.035); SQUAMOUS EPITHELIAL CELL UR AU 2 /HPF (0-6); UROBILINOGEN, URINE AUTO 0.2 mg/dL (0.0-2.0); WBC, URINE AUTO 2 /HPF (0-3)
[2017-11-23 10:19] LABS: GLUCOSE, FASTING 437 MG/DL (70-100)
== END ==
DX: J90 Pleural effusion, not elsewhere classified (principal); J98.11 Atelectasis; R50.9 Fever, unspecified
CPT/HCPCS: 80048

== ENCOUNTER → 2017-11-24 | Outpatient (REF) | payer MEDICARE, MEDICAID, OTHER ==
[2017-11-24 08:13] LABS: ANION GAP 10 MEQ/L (8-16); BLOOD UREA NITROGEN 96 MG/DL (7-18); CALCIUM LEVEL 8.9 MG/DL (8.8-10.2); CARBON DIOXIDE LEVEL 30 MEQ/L (21-32); CHLORIDE LEVEL 118 MEQ/L (98-107); CREATININE FOR GFR 3.65 MG/DL (0.70-1.30); GLOMERULAR FILTRATION RATE 16.9 (>35); POTASSIUM SERUM 4.9 MEQ/L (3.5-5.1); SODIUM LEVEL 158 MEQ/L (136-145)
[2017-11-24 08:21] LABS: GLUCOSE, FASTING 456 MG/DL (70-100)
== END ==
DX: R50.9 Fever, unspecified (principal)
CPT/HCPCS: 80048

== ENCOUNTER → 2017-11-25 | Outpatient (REF) | payer MEDICARE, MEDICAID, OTHER ==
[2017-11-25 13:53] LABS: ANION GAP 9 MEQ/L (8-16); BLOOD UREA NITROGEN 103 MG/DL (7-18); CALCIUM LEVEL 8.5 MG/DL (8.8-10.2); CARBON DIOXIDE LEVEL 29 MEQ/L (21-32); CHLORIDE LEVEL 120 MEQ/L (98-107); CREATININE FOR GFR 3.26 MG/DL (0.70-1.30); GLOMERULAR FILTRATION RATE 19.3 (>35); GLUCOSE, FASTING 142 MG/DL (70-100); POTASSIUM SERUM 3.8 MEQ/L (3.5-5.1); SODIUM LEVEL 158 MEQ/L (136-145)
== END ==
DX: R50.9 Fever, unspecified (principal)
CPT/HCPCS: 80048

== ENCOUNTER → 2017-11-26 | Outpatient (REF) | payer MEDICARE, MEDICAID, OTHER ==
[2017-11-26 11:20] LABS: ANION GAP 9 MEQ/L (8-16); BLOOD UREA NITROGEN 89 MG/DL (7-18); CALCIUM LEVEL 8.2 MG/DL (8.8-10.2); CARBON DIOXIDE LEVEL 25 MEQ/L (21-32); CHLORIDE LEVEL 118 MEQ/L (98-107); CREATININE FOR GFR 2.75 MG/DL (0.70-1.30); GLOMERULAR FILTRATION RATE 23.5 (>35); GLUCOSE, FASTING 325 MG/DL (70-100); POTASSIUM SERUM 4.3 MEQ/L (3.5-5.1); SODIUM LEVEL 152 MEQ/L (136-145)
== END ==
DX: N18.9 Chronic kidney disease, unspecified (principal)
CPT/HCPCS: 80048